=== PATIENT | female | born 1945 | race Caucasian/White ===

== ENCOUNTER → 2016-07-12 | Outpatient (REF) | payer MEDICARE, OTHER ==
[2016-07-12 12:41] LABS: ALBUMIN 3.9 GM/DL (3.2-5.2); ALBUMIN/GLOBULIN RATIO 1.44 (1.00-1.93); ALKALINE PHOSPHATASE 73 U/L (45-117); ALT/SGPT 29 U/L (12-78); ANION GAP 8 MEQ/L (8-16); AST/SGOT 20 U/L (15-37); BILIRUBIN,TOTAL 0.4 MG/DL (0.2-1.0); BLOOD UREA NITROGEN 18 MG/DL (7-18); CALCIUM LEVEL 9.2 MG/DL (8.8-10.2); CARBON DIOXIDE LEVEL 28 MEQ/L (21-32); CHLORIDE LEVEL 108 MEQ/L (98-107); CHOLESTEROL LEVEL 220 MG/DL (<200); CREATININE FOR GFR 0.74 MG/DL (0.55-1.02); GLOMERULAR FILTRATION RATE > 60.0 (>39); GLUCOSE, FASTING 86 MG/DL (83-110); SODIUM LEVEL 144 MEQ/L (136-145); TOTAL PROTEIN 6.6 GM/DL (6.4-8.2); TRIGLYCERIDES LEVEL 127 MG/DL (<150)
== END ==
LOC: M LABDRAW1 11:36
PROVIDERS: ATTEND Internal Medicine
DX: E78.00 Pure hypercholesterolemia, unspecified (principal); I10 Essential (primary) hypertension

== ENCOUNTER → 2017-01-05 | Outpatient (REF) | payer MEDICARE ==
[2017-01-05 12:15] LABS: ALBUMIN 3.9 GM/DL (3.2-5.2); ALBUMIN/GLOBULIN RATIO 1.34 (1.00-1.93); ALKALINE PHOSPHATASE 76 U/L (45-117); ALT/SGPT 23 U/L (12-78); ANION GAP 6 MEQ/L (8-16); AST/SGOT 19 U/L (15-37); BILIRUBIN,TOTAL 0.4 MG/DL (0.2-1.0); BLOOD UREA NITROGEN 16 MG/DL (7-18); CALCIUM LEVEL 9.2 MG/DL (8.8-10.2); CARBON DIOXIDE LEVEL 29 MEQ/L (21-32); CHLORIDE LEVEL 107 MEQ/L (98-107); CHOLESTEROL LEVEL 208 MG/DL (<200); CREATININE FOR GFR 0.73 MG/DL (0.55-1.02); GLOMERULAR FILTRATION RATE > 60.0 (>39); GLUCOSE, FASTING 85 MG/DL (83-110); POTASSIUM SERUM 4.3 MEQ/L (3.5-5.1); SODIUM LEVEL 142 MEQ/L (136-145); TOTAL PROTEIN 6.8 GM/DL (6.4-8.2); TRIGLYCERIDES LEVEL 66 MG/DL (<150)
== END ==
LOC: M SFHCPLAZ 09:31
PROVIDERS: ATTEND Internal Medicine
DX: E78.00 Pure hypercholesterolemia, unspecified (principal); I10 Essential (primary) hypertension

== ENCOUNTER → 2017-07-04 | Outpatient (REF) | payer MEDICARE ==
[2017-07-04 12:50] LABS: HEMATOCRIT 36.5 % (36.0-47.0); HEMOGLOBIN 11.7 g/dl (12.0-16.0); MEAN CORPUSCULAR HEMOGLOBIN 30.3 pg (27.0-33.0); MEAN CORPUSCULAR HGB CONC 32.1 g/dl (32.0-36.5); MEAN CORPUSCULAR VOLUME 94.6 fl (80.0-96.0); PLATELET COUNT, AUTOMATED 385 10^3/uL (150-450); RED BLOOD COUNT 3.86 10^6/uL (4.00-5.40); WHITE BLOOD COUNT 4.8 10^3/uL (4.0-10.0)
[2017-07-04 12:59] LABS: ALBUMIN 4.2 GM/DL (3.2-5.2); ALBUMIN/GLOBULIN RATIO 1.31 (1.00-1.93); ALKALINE PHOSPHATASE 67 U/L (45-117); ALT/SGPT 24 U/L (12-78); ANION GAP 4 MEQ/L (8-16); AST/SGOT 21 U/L (7-37); BILIRUBIN,TOTAL 0.5 MG/DL (0.2-1.0); BLOOD UREA NITROGEN 21 MG/DL (7-18); CALCIUM LEVEL 9.2 MG/DL (8.8-10.2); CARBON DIOXIDE LEVEL 31 MEQ/L (21-32); CHLORIDE LEVEL 108 MEQ/L (98-107); CREATININE FOR GFR 0.91 MG/DL (0.55-1.02); GLOMERULAR FILTRATION RATE > 60.0 (>39); GLUCOSE, FASTING 83 MG/DL (83-110); MAGNESIUM LEVEL 2.2 MG/DL (1.8-2.4); POTASSIUM SERUM 4.3 MEQ/L (3.5-5.1); SODIUM LEVEL 143 MEQ/L (136-145); TOTAL PROTEIN 7.4 GM/DL (6.4-8.2)
== END ==
LOC: M SFHCPLAZ 09:04
DX: Z51.81 Encounter for therapeutic drug level monitoring (principal); Z79.899 Other long term (current) drug therapy; I10 Essential (primary) hypertension
CPT/HCPCS: 83735

== ENCOUNTER → 2018-04-28 | Outpatient (CLI) | payer MEDICARE | LOC: M WHC 10:26 | DX: Z12.31 Encounter for screening mammogram for malignant neoplasm of breast (principal); Z80.3 Family history of malignant neoplasm of breast; Z80.0 Family history of malignant neoplasm of digestive organs | CPT/HCPCS: 77067 ==

== ENCOUNTER → 2018-05-31 | Outpatient (REF) | payer MEDICARE ==
[2018-05-31 18:21] LABS: BASO % 0.3 % (0.0-1.0); EOS # 0.2 10^3/uL (0.0-0.50); HEMOGLOBIN 10.8 g/dl (12.0-15.5); IMMATURE GRANULOCYTE % 0.3 % (0-3.0); LYMPH # 1.7 10^3/uL (1.5-4.5); LYMPH % 18.3 % (24.0-44.0); MEAN CORPUSCULAR HEMOGLOBIN 30.8 pg (27.0-33.0); MEAN CORPUSCULAR HGB CONC 32.7 g/dl (32.0-36.5); MONO # 0.8 10^3/uL (0.0-0.8); MONO % 8.7 % (0.0-5.0); NEUTROPHILS # 6.5 10^3/uL (1.8-7.7); NEUTROPHILS % 70.4 % (36.0-66.0); PLATELET COUNT, AUTOMATED 336 10^3/uL (150-450); RED BLOOD COUNT 3.51 10^6/uL (4.00-5.40); RED CELL DISTRIBUTION WIDTH 13.2 % (11.5-14.5); WHITE BLOOD COUNT 9.3 10^3/uL (4.0-10.0)
[2018-05-31 18:41] LABS: ALBUMIN 3.6 GM/DL (3.2-5.2); ALBUMIN/GLOBULIN RATIO 1.24 (1.00-1.93); ALKALINE PHOSPHATASE 62 U/L (45-117); ALT/SGPT 18 U/L (12-78); ANION GAP 8 MEQ/L (8-16); AST/SGOT 14 U/L (7-37); BILIRUBIN,TOTAL 0.3 MG/DL (0.2-1.0); BLOOD UREA NITROGEN 19 MG/DL (7-18); CALCIUM LEVEL 8.6 MG/DL (8.8-10.2); CARBON DIOXIDE LEVEL 27 MEQ/L (21-32); CHLORIDE LEVEL 106 MEQ/L (98-107); CREATININE FOR GFR 1.03 MG/DL (0.55-1.30); GLOMERULAR FILTRATION RATE 56.1 (>39); GLUCOSE, FASTING 94 MG/DL (70-100); LIPASE 135 U/L (73-393); POTASSIUM SERUM 3.8 MEQ/L (3.5-5.1); SODIUM LEVEL 141 MEQ/L (136-145); TOTAL PROTEIN 6.5 GM/DL (6.4-8.2)
== END ==
LOC: M SFHCPLAZ 16:13
DX: R10.32 Left lower quadrant pain (principal); R19.7 Diarrhea, unspecified; R10.13 Epigastric pain
CPT/HCPCS: 83690

== ENCOUNTER → 2018-06-01 | Outpatient (CLI) | payer MEDICARE ==
[2018-06-03 00:11] LABS: H PYLORI STOOL ANTIGEN Negative (Negative)
== END ==
LOC: M RAD 13:06
DX: R10.13 Epigastric pain (principal)
CPT/HCPCS: 74018

== ENCOUNTER → 2018-07-05 | Outpatient (REF) | payer MEDICARE ==
[~2018-07-05] MED LIST: AMLO5TAB6 PO; ASPI1TAB15 PO; ATOR1TAB19 PO; BENA20TA6 PO; CALCTAB89 PO; FISH1000 PO; FLON1SPR NARES; FOLI400T PO; HAIR1TAB5 PO; MELO15TA28 PO; NAPR-885 PO
[2018-07-05 12:21] LABS: HEMATOCRIT 35.5 % (36.0-47.0); HEMOGLOBIN 11.5 g/dl (12.0-15.5); MEAN CORPUSCULAR HEMOGLOBIN 29.9 pg (27.0-33.0); MEAN CORPUSCULAR HGB CONC 32.4 g/dl (32.0-36.5); MEAN CORPUSCULAR VOLUME 92.4 fl (80.0-96.0); PLATELET COUNT, AUTOMATED 344 10^3/uL (150-450); RED BLOOD COUNT 3.84 10^6/uL (4.00-5.40); WHITE BLOOD COUNT 5.3 10^3/uL (4.0-10.0)
[2018-07-05 12:26] LABS: BILIRUBIN,TOTAL 0.4 MG/DL (0.2-1.0); CALCIUM LEVEL 9.1 MG/DL (8.8-10.2); CHOLESTEROL RISK RATIO 2.779 (<5); POTASSIUM SERUM 4.2 MEQ/L (3.5-5.1); TOTAL PROTEIN 6.9 GM/DL (6.4-8.2)
[2018-07-05 12:34] LABS: TOTAL 25(OH) VITAMIN D 44.1 NG/ML (30.0-100.0)
== END ==
LOC: M SFHCPLAZ 10:09
PROVIDERS: ATTEND Internal Medicine
DX: I10 Essential (primary) hypertension (principal); E78.00 Pure hypercholesterolemia, unspecified; Z51.81 Encounter for therapeutic drug level monitoring; Z79.899 Other long term (current) drug therapy

== ENCOUNTER 2018-07-17 11:44 | Day surgery (SDC) | payer MEDICARE ==
[~2018-07-17] VITALS: Ht 162.6 cm; Wt 68.5 kg
[2018-07-17] MEDS ORDERED: NS 1,000 ML IV ONE (13:30)
--- NOTE | 2018-07-17 14:43 | ROOR ---
Patient Name: Yasemin Berry Procedure Date: 07/17/2018 2:25 PM Date of : 1945 Age: 72 Room: [facility] Gender: Female Note Status: Finalized Procedure: Upper Endoscopy + Biopsies Indications: Unexplained iron deficiency anemia Providers: Paras Hernandez MD Referring MD: Charlie Culp MD Requesting Provider: Medicines: Monitored Anesthesia Care Complications: No immediate complications. Procedure: Pre-Anesthesia Assessment: - The heart rate, respiratory rate, oxygen saturations, blood pressure, adequacy of pulmonary ventilation, and response to care were monitored throughout the procedure. The Endoscope was introduced through the mouth, and advanced to the second part of duodenum. The upper GI endoscopy was accomplished without difficulty. The patient tolerated the procedure well. Findings: The Z-line was variable and was found 40 cm from the incisors. Multiple biopsies were obtained with cold forceps for evaluation to rule out Fernandez's Esophagus randomly at the gastroesophageal junction. No other significant abnormalities were identified in a careful examination of the stomach. The exam of the duodenum was otherwise normal. Biopsies for histology were taken with a cold forceps in the first portion of the duodenum for evaluation of celiac disease. Impression: - Z-line variable, 40 cm from the incisors. - Multiple biopsies were obtained at the gastroesophageal junction. - Biopsies were taken with a cold forceps for evaluation of celiac disease. - The examination was otherwise normal. Recommendation: - Patient has a contact number available for emergencies. The signs and symptoms of potential delayed complications were discussed with the patient. Return to normal activities tomorrow. Written discharge instructions were provided to the patient. - Discharge patient to home. - Continue present medications. - Await pathology results. - Telephone GI clinic for pathology results in 1 week. - Check Portal Online for Path Results.([email or web address]) - Resume previous diet. - The findings and recommendations were discussed with the patient's family. Paras Hernandez MD Paras Hernandez MD 07/17/2018 2:43:17 PM This report has been signed electronically. Number of Addenda: 0 Note Initiated On: 07/17/2018 2:25 PM Estimated Blood Loss: Estimated blood loss: none.
[2018-07-17] MEDS ORDERED: PROPOFOL 200 MG/20 ML VIAL As Ordered ONE ×2 (14:49→14:53)
[2018-07-17] MEDS ORDERED: LIDOCAINE 2% INJ 100 MG/5 ML SDV (FOR ANES.) As Ordered ONE (14:50)
--- NOTE | 2018-07-17 15:03 | ROOR ---
Patient Name: Yasemin Berry Procedure Date: 07/17/2018 2:26 PM Date of : 1945 Age: 72 Room: [facility] Gender: Female Note Status: Finalized Procedure: Total Colonoscopy to Cecum + Biopsy Polypectomy Indications: Abdominal pain in the left lower quadrant, Unexplained iron deficiency anemia Providers: Paras Hernandez MD Referring MD: Charlie Culp MD Requesting Provider: Medicines: Monitored Anesthesia Care Complications: No immediate complications. Procedure: Pre-Anesthesia Assessment: - The heart rate, respiratory rate, oxygen saturations, blood pressure, adequacy of pulmonary ventilation, and response to care were monitored throughout the procedure. The Colonoscope was introduced through the anus and advanced to the cecum, identified by appendiceal orifice and ileocecal valve. The colonoscopy was performed without difficulty. The patient tolerated the procedure well. The quality of the bowel preparation was excellent. Findings: The perianal and digital rectal examinations were normal. Non-bleeding internal hemorrhoids were found during retroflexion. The hemorrhoids were small and Grade I (internal hemorrhoids that do not prolapse). Multiple small and large-mouthed diverticula were found in the recto-sigmoid colon, sigmoid colon and descending colon. A diminutive polyp was found in the mid ascending colon. The polyp was sessile. The polyp was removed with a jumbo cold forceps. Resection and retrieval were complete. The exam was otherwise without abnormality on direct and retroflexion views. Impression: - Non-bleeding internal hemorrhoids. - Diverticulosis in the recto-sigmoid colon, in the sigmoid colon and in the descending colon. - One diminutive polyp in the mid ascending colon, removed with a jumbo cold forceps. Resected and retrieved. - The examination was otherwise normal on direct and retroflexion views. - The exam was otherwise normal to the cecum. Recommendation: - Patient has a contact number available for emergencies. The signs and symptoms of potential delayed complications were discussed with the patient. Return to normal activities tomorrow. Written discharge instructions were provided to the patient. - High fiber diet. - Discharge patient to home. - Continue present medications. - Await pathology results. - Telephone GI clinic for pathology results in 1 week. - Repeat colonoscopy for symptoms only. - Check Portal Online for Path Results.([email or web address]) - The findings and recommendations were discussed with the patient's family. Paras Hernandez MD Paras Hernandez MD 07/17/2018 3:03:43 PM This report has been signed electronically. Number of Addenda: 0 Note Initiated On: 07/17/2018 2:26 PM Estimated Blood Loss: Estimated blood loss: none.
[2018-07-17 15:25] VITALS: BP 149/65
== END 2018-07-17 15:36 | disposition home or self-care (01) ==
LOC: M OPP 11:44
PROVIDERS: ATTEND Internal Medicine Gastroenterology
DX: D50.9 Iron deficiency anemia, unspecified (principal); R10.32 Left lower quadrant pain; R19.4 Change in bowel habit; D12.2 Benign neoplasm of ascending colon; K64.0 First degree hemorrhoids; K57.90 Diverticulosis of intestine, part unspecified, without perforation or abscess without bleeding; K22.8 Other specified diseases of esophagus; I10 Essential (primary) hypertension; E78.5 Hyperlipidemia, unspecified; K57.32 Diverticulitis of large intestine without perforation or abscess without bleeding; M54.9 Dorsalgia, unspecified; Z87.11 Personal history of peptic ulcer disease; Z87.891 Personal history of nicotine dependence; Z88.0 Allergy status to penicillin; Z88.2 Allergy status to sulfonamides; Z79.82 Long term (current) use of aspirin; Z79.899 Other long term (current) drug therapy; Z80.0 Family history of malignant neoplasm of digestive organs; Z80.7 Family history of other malignant neoplasms of lymphoid, hematopoietic and related tissues; Z80.3 Family history of malignant neoplasm of breast

== ENCOUNTER → 2019-01-16 | Outpatient (REF) | payer MEDICARE ==
[2019-01-16 12:35] LABS: ALBUMIN 4.1 GM/DL (3.2-5.2); BILIRUBIN,TOTAL 0.3 MG/DL (0.2-1.0); CALCIUM LEVEL 9.9 MG/DL (8.8-10.2); CREATININE FOR GFR 1.03 MG/DL (0.55-1.30); GLOMERULAR FILTRATION RATE 55.9 (>39); POTASSIUM SERUM 4.3 MEQ/L (3.5-5.1); TOTAL PROTEIN 7.4 GM/DL (6.4-8.2)
== END ==
LOC: M SFHCPLAZ 10:21
PROVIDERS: ATTEND Internal Medicine
DX: I10 Essential (primary) hypertension (principal)
CPT/HCPCS: 20610; 36415; 80053; 83735; G0463; J3301

== ENCOUNTER → 2019-04-24 | Outpatient (REF) | payer MEDICARE ==
[2019-04-24 16:25] LABS: HEMATOCRIT 35.6 % (36.0-47.0); HEMOGLOBIN 11.3 g/dl (12.0-15.5); MEAN CORPUSCULAR HEMOGLOBIN 30.7 pg (27.0-33.0); MEAN CORPUSCULAR HGB CONC 31.7 g/dl (32.0-36.5); MEAN CORPUSCULAR VOLUME 96.7 fl (80.0-96.0); PLATELET COUNT, AUTOMATED 408 10^3/uL (150-450); RED BLOOD COUNT 3.68 10^6/uL (4.00-5.40); WHITE BLOOD COUNT 6.7 10^3/uL (4.0-10.0)
[2019-04-24 16:30] LABS: CALCIUM LEVEL 9.9 MG/DL (8.8-10.2); CREATININE FOR GFR 1.13 MG/DL (0.55-1.30); GLOMERULAR FILTRATION RATE 50.2 (>39); POTASSIUM SERUM 4.4 MEQ/L (3.5-5.1); THYROID STIMULATING HORMONE 0.956 uIU/ML (0.358-3.740)
== END ==
LOC: M SFHCPLAZ 13:10
PROVIDERS: ATTEND Internal Medicine
DX: I10 Essential (primary) hypertension (principal); R53.1 Weakness; Z23 Encounter for immunization
CPT/HCPCS: 36415; 80048; 84443; 85027; 90682; G0008; G0463

== ENCOUNTER → 2019-05-14 | Outpatient (CLI) | payer MEDICARE ==
--- NOTE | 2019-05-14 13:31 | REPMRS ---
Patient History The patient states she has not had a clinical breast exam in over a year. Patient is postmenopausal. Family history of breast cancer at age 50 or over in maternal grandmother, colorectal cancer at age 97 in mother. No Hormone Replacement Therapy 3D TOMOSYNTHESIS WAS PERFORMED. [facility] lifetime risk for breast cancer is 4.6%. Digital Woman Screen Mammo: May 14, 2019 - Exam #: [id number] Bilateral CC and MLO view(s) were taken. Technologist: Radha Engel, Technologist Prior study comparison: April 28, 2018, bilateral digital woman screen mammo performed at [facility]. April 26, 2017, digital woman screen mammo performed at [facility]. FINDINGS: There are scattered fibroglandular densities. There has been no change in the appearance of the mammogram from the prior studies. There is a mild amount of residual fibroglandular tissue which is fairly symmetric. There is no interval development of dominant mass, architectural distortion, or clustered microcalcification suggestive of malignancy. Assessment: BI-RADS/ACR category 1 mammogram. Negative Mammogram. Recommendation Routine screening mammogram in 1 year (for women over age 40). This mammogram was interpreted with the aid of an FDA-approved computer-aided dectection system. Electronically Signed By: Roni William MD 05/14/19 [id number]
== END ==
LOC: M WHC 10:50
PROVIDERS: ATTEND Internal Medicine
DX: Z12.31 Encounter for screening mammogram for malignant neoplasm of breast (principal); Z78.0 Asymptomatic menopausal state; Z80.3 Family history of malignant neoplasm of breast

== ENCOUNTER → 2019-07-02 | Outpatient (CLI) | payer MEDICARE ==
[2019-07-02 11:56] LABS: HEMATOCRIT 34.7 % (36.0-47.0); HEMOGLOBIN 11.3 g/dl (12.0-15.5); MEAN CORPUSCULAR HEMOGLOBIN 31.4 pg (27.0-33.0); MEAN CORPUSCULAR HGB CONC 32.6 g/dl (32.0-36.5); MEAN CORPUSCULAR VOLUME 96.4 fl (80.0-96.0); PLATELET COUNT, AUTOMATED 326 10^3/uL (150-450); WHITE BLOOD COUNT 4.6 10^3/uL (4.0-10.0)
[2019-07-02 12:09] LABS: ALBUMIN 3.9 GM/DL (3.2-5.2); BILIRUBIN,TOTAL 0.4 MG/DL (0.2-1.0); CALCIUM LEVEL 9.2 MG/DL (8.8-10.2); CHOLESTEROL RISK RATIO 3.589 (<5); CREATININE FOR GFR 1.16 MG/DL (0.55-1.30); GLOMERULAR FILTRATION RATE 48.8 (>39); MAGNESIUM LEVEL 1.9 MG/DL (1.8-2.4); POTASSIUM SERUM 4.4 MEQ/L (3.5-5.1)
[2019-07-02 12:10] LABS: TOTAL 25(OH) VITAMIN D 37.1 NG/ML (30.0-100.0)
== END ==
LOC: M PLALAB 09:28
PROVIDERS: ATTEND Internal Medicine
DX: E78.00 Pure hypercholesterolemia, unspecified (principal); I10 Essential (primary) hypertension; M85.80 Other specified disorders of bone density and structure, unspecified site; K21.9 Gastro-esophageal reflux disease without esophagitis

== ENCOUNTER → 2020-01-08 | Outpatient (REF) | payer MEDICARE ==
[~2020-01-08] MED LIST changes: +AMLO1TAB24 PO; -AMLO5TAB6 PO; +ASPI-546 PO; -ASPI1TAB15 PO; +ASPI81TA26 PO; +ATOR1TAB21; +CALC600T60 PO; +FLON1SPR; -FLON1SPR NARES; +IRBE300T12; +IRBE300T12 PO; +META28.32 PO; +OMEP-218 PO; +SM HTAB3 PO
[2020-01-08 12:06] LABS: ALBUMIN 3.7 GM/DL (3.2-5.2); BILIRUBIN,TOTAL 0.4 MG/DL (0.2-1.0); CALCIUM LEVEL 9.2 MG/DL (8.8-10.2); CHOLESTEROL RISK RATIO 3.704 (<5); CREATININE FOR GFR 0.99 MG/DL (0.55-1.30); GLOMERULAR FILTRATION RATE 58.4 (>39); MAGNESIUM LEVEL 2.5 MG/DL (1.8-2.4); POTASSIUM SERUM 4.5 MEQ/L (3.5-5.1); TOTAL PROTEIN 6.7 GM/DL (6.4-8.2)
== END ==
LOC: M PLALAB 08:57
PROVIDERS: ATTEND Nurse Practitioner Family
DX: E78.00 Pure hypercholesterolemia, unspecified (principal); I10 Essential (primary) hypertension

== ENCOUNTER 2020-04-01 18:01 | Observation (INO) | payer MEDICARE ==
[~2020-04-01] VITALS: Ht 162.6 cm; Wt 68.7 kg
[~2020-04-01 18:01] MED LIST changes: -ASPI81TA26 PO; -ATOR1TAB21; -CALC600T60 PO; -IRBE300T12; -IRBE300T12 PO; -META28.32 PO; -OMEP-218 PO; -SM HTAB3 PO
[2020-04-01] MEDS ORDERED: ATOR1TAB21 (18:16)
[2020-04-01] MEDS ORDERED: IRBE300T12 (18:16)
[2020-04-01 19:47] LABS: BASO # 0.1 10^3/uL (0.0-0.2); BASO % 0.5 % (0.0-1.0); EOS # 0.2 10^3/uL (0.0-0.5); EOS % 1.5 % (0.0-3.0); HEMATOCRIT 32.4 % (36.0-47.0); HEMOGLOBIN 10.4 g/dl (12.0-15.5); LYMPH # 1.4 10^3/uL (1.5-5.0); MEAN CORPUSCULAR HEMOGLOBIN 30.4 pg (27.0-33.0); MEAN CORPUSCULAR HGB CONC 32.1 g/dl (32.0-36.5); MEAN CORPUSCULAR VOLUME 94.7 fl (80.0-96.0); MONO % 8.2 % (0.0-5.0); NEUTROPHILS % 77.5 % (36.0-66.0); PLATELET COUNT, AUTOMATED 315 10^3/uL (150-450); RED BLOOD COUNT 3.42 10^6/uL (4.00-5.40); WHITE BLOOD COUNT 11.7 10^3/uL (4.0-10.0)
[2020-04-01 20:00] LABS: INR 0.94; PROTHROMBIN TIME 12.8 SECONDS (12.5-14.3)
--- NOTE | 2020-04-01 20:15 | REPVR ---
PROCEDURE INFORMATION: Exam: XR Chest, 1 View Exam date and time: 04/01/2020 7:11 PM Age: 74 years old Clinical indication: Chest pain; Additional info: Altered mental status TECHNIQUE: Imaging protocol: XR of the chest Views: 1 view. COMPARISON: No relevant prior studies available. FINDINGS: Lungs: Unremarkable. No consolidation. Pleural space: Unremarkable. No pleural effusion. No pneumothorax. Heart/Mediastinum: Unremarkable. No cardiomegaly. Bones/joints: Unremarkable. IMPRESSION: No acute abnormality. Electronically signed by: Alec Montes On 04/01/2020 20:15:37 PM
--- NOTE | 2020-04-01 20:17 | REPVR ---
PROCEDURE INFORMATION: Exam: CT Head Without Contrast Exam date and time: 04/01/2020 8:02 PM Age: 74 years old Clinical indication: Altered mental status/memory loss TECHNIQUE: Imaging protocol: Computed tomography of the head without contrast. Radiation optimization: All CT scans at this facility use at least one of these dose optimization techniques: automated exposure control; mA and/or kV adjustment per patient size (includes targeted exams where dose is matched to clinical indication); or iterative reconstruction. COMPARISON: CT Head without contrast 07/30/2015 6:04 PM FINDINGS: Brain: Normal. No hemorrhage. Unremarkable white matter. No mass effect. Cerebral ventricles: No ventriculomegaly. Bones/joints: Unremarkable. No acute fracture. Paranasal sinuses: Visualized sinuses are unremarkable. No fluid levels. Mastoid air cells: Visualized mastoid air cells are well aerated. Soft tissues: Unremarkable. IMPRESSION: No acute intracranial abnormality. Electronically signed by: Alec Montes On 04/01/2020 20:17:06 PM
[2020-04-01 20:21] LABS: ACETAMINOPHEN LEVEL < 2.0 UG/ML (10.0-30.0); ALT/SGPT 20 U/L (12-78); BILIRUBIN,DIRECT 0.1 MG/DL (0.0-0.2); BILIRUBIN,TOTAL 0.5 MG/DL (0.2-1.0); BLOOD UREA NITROGEN 28 MG/DL (7-18); CALCIUM LEVEL 9.3 MG/DL (8.8-10.2); CARBON DIOXIDE LEVEL 25 MEQ/L (21-32); CHLORIDE LEVEL 107 MEQ/L (98-107); CK-MB VALUE MASS < 1.0 NG/ML (<3.6); CPK CREATINE PHOSPHOKINASE 91 U/L (26-192); CREATININE FOR GFR 1.45 MG/DL (0.55-1.30); GLOMERULAR FILTRATION RATE 37.6 (>39); GLUCOSE, FASTING 101 MG/DL (70-100); POTASSIUM SERUM 4.2 MEQ/L (3.5-5.1); SALICYLATE LEVEL < 1.7 MG/DL (5.0-30.0); SODIUM LEVEL 140 MEQ/L (136-145); TROPONIN I < 0.02 NG/ML (< 0.10)
--- NOTE | 2020-04-01 20:31 | REPVR ---
PROCEDURE INFORMATION: Exam: XR Right Wrist Exam date and time: 04/01/2020 7:11 PM Age: 74 years old Clinical indication: Pain; Wrist; Right; Additional info: Altered mental status TECHNIQUE: Imaging protocol: XR Right wrist. Views: 3 or more views. COMPARISON: No relevant prior studies available. FINDINGS: Bones/joints: Chondrocalcinosis. There is a irregular bony density in the palmar aspect of the wrist which may represent CPPD versus bone fragment. Diffuse demineralization of the bones. Soft tissues: Normal. IMPRESSION: Chondrocalcinosis. Irregular density in the palmar aspect of the wrist which may represent CPPD versus bony fragment of unknown origin. Electronically signed by: Alec Montes On 04/01/2020 20:30:34 PM
[2020-04-01] MEDS ORDERED: ATOR1TAB19 PO (22:04)
[2020-04-01] MEDS ORDERED: META28.32 PO (22:04)
[2020-04-01] MEDS ORDERED: CALC600T60 PO (22:04)
[2020-04-01] MEDS ORDERED: OMEP-218 PO (22:04)
[2020-04-01] MEDS ORDERED: SM HTAB3 PO (22:04)
[2020-04-01] MEDS ORDERED: IRBE300T12 PO (22:04)
[2020-04-02 02:40] VITALS: BP 136/78
[2020-04-02] MEDS ORDERED: SLF 3 ML SYR IV PRN (03:30)
[2020-04-02 04:00] VITALS: BP 158/72
[2020-04-02] MEDS ORDERED: MELOXICAM (MOBIC) 7.5 MG TAB PO PRN (05:30)
[2020-04-02] MEDS ORDERED: FLUTICASONE PROP 0.05% NASAL SPRAY 16 GM (FLONASE) PRN (05:30)
[2020-04-02] MEDS ORDERED: NS 1,000 ML IV SCH (05:30)
--- NOTE | 2020-04-02 05:33 | HPEPDOC ---
General Date of Admission Apr 01, 2020 at 18:02 Date of Service: Apr 02, 2020 Attending Physician: MALAIKA SALGADO MD Chief Complaint The patient is a 74-year-old female admitted with a reason for visit of Tia, Vision Changes. History of Present Illness Pt is a 74 y/o elderly female who presents to ER with cc of curtains falling over bilateral eyes. Pt states that she slept on her wrist wrong and it was painful and bothering her. She decided to wrap an BIA bandage very tightly around her R wrist which did help her wrist pain; however, she states she felt something go up her arm and then all of a sudden, she felt like curtains falling over her bilateral eyes for about 1-2 mins and then resolved. She denies any weakness on any particular side of her body or slurred speech, no difficulty walking, or muscle weakness during the episode. She denies any fainting or lightheadness or vertigo or numbness ROS: All 12 points reviewed. See HPI PMHx: HTN Hypercholestermia Past social hx: No ETOH, or illicit drugs LABS: SEE BELOW IMAGING: CT brain w/o ctx: IMPRESSION: No acute intracranial abnormality. XR wrist: IMPRESSION: Chondrocalcinosis. Irregular density in the palmar aspect of the wrist which may represent CPPD versus bony fragment of unknown origin. CXR IMPRESSION: No acute abnormality. Home Medications Scheduled Amlodipine Besylate (Amlodipine Besylate) 5 Mg Tab, 5 MG PO DAILY, (Reported) Atorvastatin Calcium (Atorvastatin Calcium) 10 Mg Tablet, 10 MG PO DAILY, (Reported) Calcium Carbonate (Calcium) 600 Mg Tablet, 600 MG PO DAILY, (Reported) Irbesartan/Hydrochlorothiazide (Irbesartan-Hctz 300-12.5 mg Tb) 1 Each Tablet, 1 TAB PO DAILY, (Reported) Multivitamin with Minerals (Hair, Skin and Nails) 1 Each Tablet, 1 TAB PO DAILY, (Reported) Omeprazole (Omeprazole) 20 Mg Capsule.dr, 20 MG PO DAILY, (Reported) Psyllium Husk (with Sugar) (Metamucil Powder) 575 Gm Powder, 1 PKT PO DAILY, (Reported) TAKE AT LUNCH Scheduled PRN Fluticasone Propionate (Flonase Allergy Relief) 50 Mcg/Act Spr, 2 SPRAY NA QHS PRN for NASAL CONGESTION, (Reported) Meloxicam (Meloxicam) 15 Mg Tab, 15 MG PO DAILY PRN for PAIN, (Reported) Allergies Coded Allergies: Penicillins (Verified Allergy, Unknown, 04/01/20) Sulfa (Sulfonamide Antibiotics) (Verified Allergy, Unknown, 04/01/20) atorvastatin (Verified Allergy, Unknown, 04/01/20) JOINT PAIN A-FIB/CHADSVASC A-FIB History Current/History of A-Fib/PAF?: No Current PO Anticoag Therapy: No Physical Examination General Exam: Positive: Alert, Cooperative, No Acute Distress Eye Exam: Positive: PERRLA, EOMI, Sclera icteric; Negative: Ptosis ENT Exam: Positive: Atraumatic, Mucous membr. moist/pink, Tongue Midline, Nares Patent; Negative: Pharyngeal Edema Neck Exam: Positive: Supple; Negative: JVD, thyromegaly, Lymphadenopathy Chest Exam: Positive: Clear to auscultation, Normal air movement; Negative: Rales, Rhonchi, Wheezing, Diminished Heart Exam: Positive: Rate Normal, Regular Rhythm, Normal S1, Normal S2; Negative: Gallops, Murmurs, Rubs Telemetry: Positive: No significant arrhythmia, Sinus; Negative: Tachycardia, Bradycardia, AV Block Abdomen Exam: Positive: Normal bowel sounds, Soft; Negative: Tenderness, Hepatospenomegaly, Mass, Hernia Extremity Exam: Negative: Clubbing, Cyanosis, Edema, Normal pulses, Tenderness Skin Exam: Positive: Lesion, Other skin issue (Has some spots that are burned off per dermatology procedures on her back in the R side ); Negative: Rash, Breakdown, Pruritus Neuro Exam: Positive: Normal Speech, Strength at 5/5 X4 ext, Sensation Intact, Cranial Nerves 3-12 NL Psych Exam: Positive: Oriented x 3; Negative: Anxiety Vital Signs Vital Signs Date Time Temp Pulse Resp B/P (MAP) Pulse Ox O2 Delivery O2 Flow Rate FiO2 04/02/20 02:14 71 16 149/79 (102) 98 Room Air 04/02/20 00:27 97.6 Laboratory Data Labs 24H Laboratory Tests 2 04/01/20 19:18: Immature Granulocyte % (Auto) 0.3, Neutrophils (%) (Auto) 77.5H, Lymphocytes (%) (Auto) 12.0L, Monocytes (%) (Auto) 8.2H, Eosinophils (%) (Auto) 1.5, Basophils (%) (Auto) 0.5, Neutrophils # (Auto) 9.0H, Lymphocytes # (Auto) 1.4L, Monocytes # (Auto) 1.0H, Eosinophils # (Auto) 0.2, Basophils # (Auto) 0.1, Nucleated Red Blood Cells % (auto) 0.0, Prothrombin Time 12.8, Prothromb Time International Ratio 0.94, Urine Color YELLOW, Urine Appearance HAZY, Urine pH 6.0, Urine Specific Dun[place] 1.014, Urine Protein NEGATIVE, Urine Glucose (UA) NEGATIVE, Urine Ketones NEGATIVE, Urine Blood NEGATIVE, Urine Nitrite NEGATIVE, Urine Bilirubin NEGATIVE, Urine Urobilinogen 0.2, Urine Leukocyte Esterase 2+H, Urine WBC (Auto) 16H, Urine RBC (Auto) 2, Urine Hyaline Casts (Auto) 4, Urine Bacteria (Auto) NEGATIVE, Urine Squamous Epithelial Cells 5, Urine Mucus (Auto) SMALL, Urine Sperm (Auto) , Anion Gap 8, Glomerular Filtration Rate 37.6L, Calcium Level 9.3, Total Bilirubin 0.5, Direct Bilirubin 0.1, Aspartate Amino Transf (AST/SGOT) 20, Alanine Aminotransferase (ALT/SGPT) 20, Alkaline Phosphatase 76, Total Creatine Kinase 91, Creatine Kinase MB < 1.0, Creatine Kinase MB Relative Index 1.10, Troponin I < 0.02, Total Protein 7.0, Albumin 4.0, Albumin/Globulin Ratio 1.3, Thyroid Stimulating Hormone (TSH) 1.620, Salicylates Level < 1.7L, Acetaminophen Level < 2.0L CBC/BMP Laboratory Tests 04/01/20 19:18 Microbiology Microbiology 04/01/20 Urine Culture, Received Pending Assessment/Plan Pt is a 74 y/o elderly female who presents to ER with cc of curtains falling over bilateral eyes. Pt states that she slept on her wrist wrong and it was painful and bothering her. She decided to wrap an BIA bandage very tightly around her R wrist which did help her wrist pain; however, she states she felt something go up her arm and then all of a sudden, she felt like curtains falling over her bilateral eyes for about 1-2 mins and then resolved. she's being admitted for a TIA workup. Plan / VTE VTE Prophylaxis Ordered?: Yes Plan Plan #Suspected TIA - Bilateral transient vision loss for about 1-2 mins- described as curtains falling over eyes - As TIA usu affects unilaterally- consider opthalmology consultation per morning team -Pending MRI w/o ctx- spoke with patient about MRI- pt is claustraphobic- morning team/doctor to further discuss risk and benefits with patient - MRA pending - U/S carotids pending - ECHO pending - continue neurochecks q4h - Fall precautions #ERASMO - IVF 100cc/h - continue to monitor daily BMP #HTN -Continue amlodipine -Continue atorvastatin 10mg Po daily -Continue HCTZ 12.5mg pO daily -Continue iberstartan 300mg Po daily #Hypercholesteremia - continue home meds DVT ppx: Heparin 5000mg SubQ TID GI ppx: none IVF : NS 0.9% @100cc/h Diet: 2g Na+ diet Fall precautions Code Status: Full Dispo: On telemetry. TIA workup. MRI, MRA, u/s carotids, ECHO pending. For morning team- consider consulting opthalmology GME ATTESTATION GME ATTESTATION My faculty preceptor for this patient encounter was physically present during the encounter and was fully available. All aspects of the patient interview, examination, medical decision making process, and medical care plan development were reviewed and approved by the faculty preceptor. The faculty preceptor is aware and concurs with the plan as stated in the body of this note and will attest to such by his/her cosignature. ATTENDING NOTE IDalton, have independently examined this patient and performed my own physical exam, as well as reviewed the documentation and edited where necessary. I have discussed in detail with the resident / student the findings and plan of treatment as documented by the resident / student and edited their note. I agree with their findings and treatment plan and have edited their documentation. I will continue to follow the patient during this hospital stay. TIA workup but seems unlikely. Would consult neuro in the AM. Would consider an ophthalmology consult in vs op. Coni Philippe DO Apr 02, 2020 05:33 MALAIKA SALGADO MD Apr 02, 2020 07:04
[2020-04-02 05:58] LABS: BASO % 0.6 % (0.0-1.0); EOS # 0.2 10^3/uL (0.0-0.5); EOS % 2.4 % (0.0-3.0); HEMATOCRIT 29.7 % (36.0-47.0); HEMOGLOBIN 9.6 g/dl (12.0-15.5); LYMPH # 1.8 10^3/uL (1.5-5.0); LYMPH % 25.1 % (24.0-44.0); MEAN CORPUSCULAR HEMOGLOBIN 30.7 pg (27.0-33.0); MEAN CORPUSCULAR HGB CONC 32.3 g/dl (32.0-36.5); MEAN CORPUSCULAR VOLUME 94.9 fl (80.0-96.0); MONO # 0.7 10^3/uL (0.0-0.8); MONO % 10.3 % (0.0-5.0); NEUTROPHILS # 4.3 10^3/uL (1.5-8.5); NEUTROPHILS % 61.3 % (36.0-66.0); PLATELET COUNT, AUTOMATED 277 10^3/uL (150-450); RED BLOOD COUNT 3.13 10^6/uL (4.00-5.40); WHITE BLOOD COUNT 7.1 10^3/uL (4.0-10.0)
[2020-04-02] MEDS: SLF 3 ML SYR IV SCH ×2 (06:00→14:46)
[2020-04-02 06:20] LABS: CALCIUM LEVEL 9.4 MG/DL (8.8-10.2); CREATININE FOR GFR 1.33 MG/DL (0.55-1.30); GLOMERULAR FILTRATION RATE 41.5 (>39); POTASSIUM SERUM 3.9 MEQ/L (3.5-5.1)
[2020-04-02] MEDS: HEPARIN SOD (PORCINE) 5000UNITS/ML 1ML VIAL/SYRINGE SQ SCH ×2 (06:55→14:00)
[2020-04-02 08:00] VITALS: BP 118/80
--- NOTE | 2020-04-02 08:06 | REPVR ---
PROCEDURE INFORMATION: Exam: US Duplex Bilateral Extracranial Arteries Exam date and time: 04/02/2020 6:17 AM Age: 74 years old Clinical indication: Visual disturbance; Additional info: Suspect TIA TECHNIQUE: Imaging protocol: Real-time Duplex ultrasound scan of the bilateral carotid and vertebral arteries combining alfaro scale, color Doppler and spectral waveform analysis. Bilateral exam. COMPARISON: CT Head without contrast 04/01/2020 7:58 PM FINDINGS: Right common carotid artery: Unremarkable. No occlusion or stenosis. Waveforms are normal. Right internal carotid artery: The proximal right ICA is patent with normal waveform and peak systolic velocity of 90.2 centimeter/second. The mid right ICA is patent with normal waveform and peak systolic velocity of 79.1 centimeter/second. The distal right ICA is patent with normal waveform and peak systolic velocity of 77.4 centimeter/second. The right carotid bulb is patent with peak systolic velocity of 93.4 centimeter/second. The proximal right ICA is patent demonstrating mild mural calcified plaque with normal waveform and peak systolic velocity of 75.7 centimeter/second. The mid right ICA is patent with normal waveforms and peak systolic velocity of 97.6 centimeter/second. The distal right ICA is patent with normal waveform and peak systolic velocities of 74.9 centimeter/second. Right ICA/CCA ratio: Within normal limits. 1.08 Right external carotid artery: The proximal right ECA is patent with peak systolic velocity ranging from 119-134 centimeter/seconds. Right vertebral artery: Antegrade flow seen in the right vertebral artery with peak systolic velocity of 45.4 centimeter/second. Left common carotid artery: The proximal left CCA is patent and tortuous with normal waveforms and peak systolic velocity 141.3 centimeter/second. The mid left CCA is patent with normal waveform and peak systolic velocity of 104.3 centimeter/second. The left distal CCA is patent with normal waveforms and peak systolic velocities of 57.2 centimeter/second. Left internal carotid artery: Minimal calcified plaque seen in the left carotid bulb with peak systolic velocity of 56.4 centimeter/second. The proximal left ICA is patent with normal waveform and peak systolic velocities of 58.1 centimeter/second. The left mid ICA is patent with normal waveforms and peak systolic velocity of 86.7 centimeter/second. The distal left ICA is patent with peak systolic velocities of 111.9 centimeter/second. Left ICA/CCA ratio: Within normal limits. 0.79 Left external carotid artery: The proximal left ECA is patent with peak systolic velocity ranging from 93-124 centimeter/seconds. . Left vertebral artery: Antegrade flow seen in the left vertebral artery with peak systolic velocity of 65.6 centimeter/second. IMPRESSION: No sonographic or Doppler evidence of hemodynamically significant stenosis in the right or left carotid arteries. REFERENCES: SRU CRITERIA. The degree of internal carotid artery stenosis is based on criteria defined by the Society of Radiologists in Ultrasound (SRU). Normal is no stenosis. Mild is less than 50% stenosis. Moderate is 50-69% stenosis. Severe is greater than 69% stenosis to near occlusion. Near occlusion is a markedly narrowed lumen. Total occlusion is no detectable patent lumen. Electronically signed by: Kenroy Chavez On 04/02/2020 08:05:56 AM
--- NOTE | 2020-04-02 08:33 | ECGEPIP ---
[facility] - ED Test Date: 2020-04-01 Pat Name: OSCAR DYSON Department: Room: [place] [address] Gender: Female Clinical Admissions Manager: jovita : 1945 Requested By: TAMMY VILLAFUERTE Order Number: [id number] Reading MD: Brittany Ryan Measurements Intervals [place] Rate: 77 P: 54 NC: 172 QRS: 22 QRSD: 89 T: 19 QT: 374 QTc: 426 Interpretive Statements SINUS RHYTHM NONSPECIFIC T-WAVE ABNORMALITY INCREASED RATE 06/05/16 Electronically Signed on 04-02-2020 8:32:51 EDT by Brittany Ryan
[2020-04-02 09:00] VITALS: BP 118/80
[2020-04-02] MEDS ORDERED: amLODIPine 5 MG TAB PO SCH (09:00)
[2020-04-02] MEDS ORDERED: amLODIPine 10 MG TAB PO SCH (09:00)
[2020-04-02] MEDS ORDERED: IRBESARTAN 150MG TAB PO SCH (09:00)
[2020-04-02] MEDS ORDERED: ATORVASTATIN 10 MG TAB PO SCH (09:00)
[2020-04-02] MEDS ORDERED: OMEPRAZOLE 20 MG CAP PO SCH (09:00)
[2020-04-02] MEDS ORDERED: hydroCHLOROthiazide 12.5 MG CAPSULE PO SCH (09:00)
[2020-04-02] MEDS ORDERED: METAMUCIL (PSYLLIUM) PACKET PO SCH (12:00)
[2020-04-02] MEDS ORDERED: ISOVUE-370 76% 100ML VIAL As Ordered ONE (13:50)
--- NOTE | 2020-04-02 14:29 | REPVR ---
PROCEDURE INFORMATION: Exam: CT Head Without Contrast Exam date and time: 04/02/2020 1:57 PM Age: 74 years old Clinical indication: Other: TIA TECHNIQUE: Imaging protocol: Computed tomography of the head without contrast. Radiation optimization: All CT scans at this facility use at least one of these dose optimization techniques: automated exposure control; mA and/or kV adjustment per patient size (includes targeted exams where dose is matched to clinical indication); or iterative reconstruction. COMPARISON: CT Head without contrast 04/01/2020 7:58 PM FINDINGS: Brain: No mass, mass effect, parenchymal hemorrhage, or evidence of large acute infarct. No asymmetric sulcal effacement or loss of the alfaro-white interface. No extra-axial hemorrhage. Cerebral ventricles: There is no hydrocephalus. Basal cisterns are patent. No midline shift. Bones/joints: There is nasal septal deviation to the left. Paranasal sinuses: There is opacification of a right ethmoid air cell. Mastoid air cells: Partial opacification of inferior mastoid air cells bilaterally. Vasculature: There is atherosclerotic calcification in the bilateral internal carotid and left vertebral arteries. Soft tissues: Unremarkable. Additional findings: There are no sagittal or coronal reformatted images available for review. IMPRESSION: 1. No intracranial hemorrhage or evidence of large acute infarct. Electronically signed by: Peyton Calixto On 04/02/2020 14:29:28 PM
--- NOTE | 2020-04-02 14:34 | REPVR ---
PROCEDURE INFORMATION: Exam: CT Angiography Head With Contrast Exam date and time: 04/02/2020 1:57 PM Age: 74 years old Clinical indication: Other: TIA TECHNIQUE: Imaging protocol: Computed tomography angiography of the head with intravenous contrast. 3D rendering (Not supervised by radiologist): MIP and/or 3D reconstructed images were created by the technologist. Radiation optimization: All CT scans at this facility use at least one of these dose optimization techniques: automated exposure control; mA and/or kV adjustment per patient size (includes targeted exams where dose is matched to clinical indication); or iterative reconstruction. Contrast material: ISOVUE 370; Contrast volume: 75 ml; Contrast route: INTRAVENOUS (IV); COMPARISON: CT Head without contrast 04/01/2020 7:58 PM FINDINGS: ANTERIOR CIRCULATION: Right internal carotid artery: Unremarkable. Intracranial segment is patent with no significant stenosis. No aneurysm. Right middle cerebral artery: Unremarkable. No occlusion or significant stenosis. No aneurysm. Right anterior cerebral artery: Unremarkable. No occlusion or significant stenosis. No aneurysm. Left internal carotid artery: Unremarkable. Intracranial segment is patent with no significant stenosis. No aneurysm. Left middle cerebral artery: Unremarkable. No occlusion or significant stenosis. No aneurysm. Left anterior cerebral artery: Unremarkable. No occlusion or significant stenosis. No aneurysm. POSTERIOR CIRCULATION: Right vertebral artery: Unremarkable. No occlusion or significant stenosis. No aneurysm. Left vertebral artery: Unremarkable. No occlusion or significant stenosis. No aneurysm. Basilar artery: Unremarkable. No occlusion or significant stenosis. No aneurysm. Right posterior cerebral artery: Unremarkable. No occlusion or significant stenosis. No aneurysm. Left posterior cerebral artery: Unremarkable. No occlusion or significant stenosis. No aneurysm. Brain: No definite mass, mass effect, or midline shift. Cerebral ventricles: The ventricles appear mildly enlarged, but not out of proportion to the degree of parenchymal volume loss. Bones/joints: Unremarkable. No acute fracture. Soft tissues: Unremarkable. IMPRESSION: No large vessel stenosis or occlusion. Electronically signed by: Ela Harding On 04/02/2020 14:34:15 PM
[2020-04-02 16:00] VITALS: BP 124/64
[2020-04-02] MEDS ORDERED: ASPI81TA26 PO (17:38)
--- NOTE | 2020-04-03 13:24 | DS.PDOC ---
Discharge Summary General Date of Admission Apr 01, 2020 at 18:02 Date of Discharge 04/02/20 Discharge Summary PROCEDURES PERFORMED DURING STAY: [None]. DISCHARGE DIAGNOSES: Presyncopal episode due to severe wrist pain Right wrist chondrocalcinosis Hypertension ERASMO HLD COMPLICATIONS/CHIEF COMPLAINT: TIA, Vision Changes. HOSPITAL COURSE: Pt is a 74 y/o elderly female who presents to ER with sensation of curtains falling over bilateral eyes. Pt states that she slept on her wrist wrong and it was painful and bothering her. She overworked her wrist the day as she was cooking for family coming over. She decided to wrap an BIA bandage very tightly around her R wrist which did help her wrist pain; then suddenly she had a severe episode of wrist pain shooting up to her shoulder . She felt something go up her arm and then all of a sudden then she felt like curtains falling over her bilateral eyes with blurring of Vision for about 1-2 mins and then resolved. She was admitted for possible TIA. Work up for TIA/ stroke was negative. This was probably and vagal respond to severe pain with a presyncopal episode. Presyncopal Episode Bilateral transient vision loss for about 1-2 mins- described as curtains falling over eyes associated with severe shooting pain from his right wrist Work up for TIA/Stroke was negative. Telemetry negative. Discussed with neurology. TIAs cannot be bilateral and ophthalmological problems are also unilateral. Right wrist pain referred to [facility] Xray shows Chondrocalcinosis. Irregular density in the palmar aspect of the wrist which may represent CPPD versus bony fragment of unknown origin. ERASMO resolved HTN Continue amlodipine Continue atorvastatin 10mg Po daily Continue HCTZ 12.5mg pO daily Continue irbesartan 300mg Po daily Hypercholesteremia continue home meds DISCHARGE MEDICATIONS: Please see below. ALLERGIES: Please see below. PHYSICAL EXAMINATION ON DISCHARGE: VITAL SIGNS: Please see below. General Exam: Positive: Alert, Cooperative, No Acute Distress Eye Exam: Positive: PERRLA, EOMI, Sclera icteric; Negative: Ptosis ENT Exam: Positive: Atraumatic, Mucous membr. moist/pink, Tongue Midline, Nares Patent; Negative: Pharyngeal Edema Neck Exam: Positive: Supple; Negative: JVD, thyromegaly, Lymphadenopathy Chest Exam: Positive: Clear to auscultation, Normal air movement; Negative: Rales, Rhonchi, Wheezing, Diminished Heart Exam: Positive: Rate Normal, Regular Rhythm, Normal S1, Normal S2; Negative: Gallops, Murmurs, Rubs Telemetry: Positive: No significant arrhythmia, Sinus; Negative: Tachycardia, Bradycardia, AV Block Abdomen Exam: Positive: Normal bowel sounds, Soft; Negative: Tenderness, Hepatospenomegaly, Mass, Hernia Extremity Exam: Negative: Clubbing, Cyanosis, Edema, Normal pulses, Tenderness Skin Exam: Positive: Lesion, Other skin issue (Has some spots that are burned off per dermatology procedures on her back in the R side ); Negative: Rash, Breakdown, Pruritus Neuro Exam: Positive: Normal Speech, Strength at 5/5 X4 ext, Sensation Intact, Cranial Nerves 3-12 NL Psych Exam: Positive: Oriented x 3; Negative: Anxiety LABORATORY DATA: Please see below. ACTIVITY: [As tolerated]. DIET: As tolerated DISPOSITION: 01 Home, Self-Care. DISCHARGE INSTRUCTIONS: PMD in 2 weeks Orthopedics call for early appointment DISCHARGE CONDITION: [Stable]. TIME SPENT ON DISCHARGE: 35 minutes. Vital Signs/I&Os Vital Signs Date Time Temp Pulse Resp B/P (MAP) Pulse Ox O2 Delivery O2 Flow Rate FiO2 04/02/20 16:00 97.1 70 16 124/64 (84) 96 Room Air I&O- Last 24 Hours up to 6 AM 04/03/20 06:00 Intake Total 1025 ml Output Total 550 ml Balance 475 ml Microbiology Microbiology 04/01/20 Urine Culture, Received Pending Discharge Medications Scheduled Amlodipine Besylate (Amlodipine Besylate) 5 Mg Tab, 5 MG PO DAILY, (Reported) Aspirin (Aspirin EC) 81 Mg Tablet.dr, 1 TAB PO DAILY for pain Atorvastatin Calcium (Atorvastatin Calcium) 10 Mg Tablet, 10 MG PO DAILY, (Reported) Calcium Carbonate (Calcium) 600 Mg Tablet, 600 MG PO DAILY, (Reported) Irbesartan/Hydrochlorothiazide (Irbesartan-Hctz 300-12.5 mg Tb) 1 Each Tablet, 1 TAB PO DAILY, (Reported) Multivitamin with Minerals (Hair, Skin and Nails) 1 Each Tablet, 1 TAB PO DAILY, (Reported) Omeprazole (Omeprazole) 20 Mg Capsule.dr, 20 MG PO DAILY, (Reported) Psyllium Husk (with Sugar) (Metamucil Powder) 575 Gm Powder, 1 PKT PO DAILY, (Reported) TAKE AT LUNCH Scheduled PRN Fluticasone Propionate (Flonase Allergy Relief) 50 Mcg/Act Spr, 2 SPRAY NA QHS PRN for NASAL CONGESTION, (Reported) Meloxicam (Meloxicam) 15 Mg Tab, 15 MG PO DAILY PRN for PAIN, (Reported) Allergies Coded Allergies: Penicillins (Verified Allergy, Unknown, 04/01/20) Sulfa (Sulfonamide Antibiotics) (Verified Allergy, Unknown, 04/01/20) atorvastatin (Verified Allergy, Unknown, 04/01/20) JO[employer] [facility] FINN MARTINEZ MD Apr 03, 2020 13:24
--- NOTE | 2020-04-04 10:19 | ECHO ---
DATE OF PROCEDURE: 04/02/2020 Age: 74 Gender: Female REFERRING PROVIDER: Dr. Mckay Carranza PATIENT LOCATION: Room 3215. REASON FOR STUDY: Cerebrovascular accident (CVA). 2D MEASUREMENTS: IVS 0.9 cm LV 4.4 cm LVPW 1.0 cm LA 3.7 cm Aorta 2.3 cm IVC 1.6 cm DOPPLER MEASUREMENT Peak velocity across the aortic valve 1.4 m/s Peak velocity across the LVOT 0.92 m/s Mitral E 0.65 Mitral A 0.88 with a ratio of 0.87 Maximum tricuspid valve velocity 2.4 m/s 2D COMMENTS: 1. Normal left ventricular size, wall thickness, and normal global left ventricular systolic function. The estimated left ventricular systolic ejection fraction is 60% to 65%. 2. Normal left atrium. 3. Normal right atrium and right ventricle. 4. The atrial septum appeared to be normal without evidence of defect or shunt. 5. Normal aortic root. 6. No pericardial effusion seen. 7. Minimally calcified aortic valve with normal leaflet excursion. Mildly calcified mitral annulus with normal anterior mitral valve leaflet motion. Normal tricuspid valve and pulmonic valve. The proximal pulmonary artery branches also appeared to be normal in size. 8. The inferior vena cava was normal in size. Central venous pressure is most likely normal. Doppler detects trace aortic regurgitation, mild mitral regurgitation, mild tricuspid regurgitation, and trace pulmonic regurgitation. The calculated pulmonary artery systolic pressure varies between 30 to 40 mmHg. Abnormal relaxation pattern was noted across the mitral valve leaflets, as well as the mitral valve annulus consistent with features of grade 1 left ventricular diastolic dysfunction. IMPRESSION: 1. Normal global left ventricular systolic function. There are some features of grade 1 left ventricular diastolic dysfunction manifested by abnormal relaxation. 2. Aortic valve sclerosis with trace aortic regurgitation, but no aortic stenosis. 3. Mitral annulus calcification with mild mitral regurgitation. 4. Mild tricuspid regurgitation with probably mild pulmonary artery hypertension. 5. Trace pulmonic regurgitation. 6. No intracardiac shunt detected in this transthoracic echocardiogram. [facility]
== END 2020-04-02 19:15 | disposition home or self-care (01) ==
LOC: M ED 18:01 → M ED INP 18:02 → ENRESERV 04-02 00:48 → M PCU 04-02 02:40
PROVIDERS: ADMIT Family Medicine; ATTEND Family Medicine
DX: R55 Syncope and collapse (principal); M25.531 Pain in right wrist; M11.231 Other chondrocalcinosis, right wrist; I10 Essential (primary) hypertension; N17.9 Acute kidney failure, unspecified; E78.5 Hyperlipidemia, unspecified; Z79.899 Other long term (current) drug therapy; Z79.82 Long term (current) use of aspirin; Z88.0 Allergy status to penicillin; Z88.2 Allergy status to sulfonamides; Z88.8 Allergy status to other drugs, medicaments and biological substances
CPT/HCPCS: 36415; 70450; 70496; 71045; 73110; 80048; 80076; 81001; 82550; 82553; 84443; 84484; 85025; 85610; 87088; 87186; 93005; 93041; 93306; 93880; 94760; 96360; 97161; 97165; 99285; G0378; G0480; J1644; Q9967

== ENCOUNTER → 2020-04-08 | Outpatient (REF) | payer MEDICARE ==
[~2020-04-08] MED LIST changes: +ASPI81TA26 PO; +ATOR1TAB21; +CALC600T60 PO; +IRBE300T12; +IRBE300T12 PO; +META28.32 PO; +OMEP-218 PO; +SM HTAB3 PO
[2020-04-08 17:28] LABS: BASO % 0.7 % (0.0-1.0); EOS # 0.1 10^3/uL (0.0-0.5); EOS % 2.4 % (0.0-3.0); HEMATOCRIT 34.2 % (36.0-47.0); LYMPH # 1.5 10^3/uL (1.5-5.0); LYMPH % 24.6 % (24.0-44.0); MEAN CORPUSCULAR HEMOGLOBIN 30.9 pg (27.0-33.0); MEAN CORPUSCULAR HGB CONC 32.2 g/dl (32.0-36.5); MEAN CORPUSCULAR VOLUME 96.1 fl (80.0-96.0); MONO # 0.5 10^3/uL (0.0-0.8); MONO % 8.2 % (0.0-5.0); NEUTROPHILS # 3.8 10^3/uL (1.5-8.5); NEUTROPHILS % 63.6 % (36.0-66.0); PLATELET COUNT, AUTOMATED 381 10^3/uL (150-450); RED BLOOD COUNT 3.56 10^6/uL (4.00-5.40); WHITE BLOOD COUNT 5.9 10^3/uL (4.0-10.0)
[2020-04-08 18:00] LABS: CALCIUM LEVEL 9.4 MG/DL (8.8-10.2); CREATININE FOR GFR 1.15 MG/DL (0.55-1.30); GLOMERULAR FILTRATION RATE 49.1 (>39); PERCENT SATURATION 24.1 % (13.2-45.0); POTASSIUM SERUM 4.4 MEQ/L (3.5-5.1)
== END ==
LOC: M SFHCPLAZ 14:35
PROVIDERS: ATTEND Internal Medicine
DX: D64.9 Anemia, unspecified (principal); I10 Essential (primary) hypertension
CPT/HCPCS: 36415; 80048; 82728; 83550; 85025; 99496; G0463

== ENCOUNTER → 2020-05-20 | Outpatient (CLI) | payer MEDICARE ==
--- NOTE | 2020-05-20 12:47 | REPMRS ---
Patient History The patient states she had a clinical breast exam in April 2020.Family history of breast cancer at age 50 or over in maternal grandmother, colorectal cancer at age 97 in mother. No Hormone Replacement Therapy 3D TOMOSYNTHESIS WAS PERFORMED. [facility] for [facility]%. Volpara breast density a. Digital Woman Screen Mammo: May 20, 2020 - Exam #: [id number] Bilateral CC and MLO view(s) were taken. Technologist: Tiffany Gaviria, Technologist Prior study comparison: May 14, 2019, bilateral digital woman screen mammo performed at [facility]. April 28, 2018, bilateral digital woman screen mammo performed at [facility]. FINDINGS: There are scattered fibroglandular densities. There has been no change in the appearance of the mammogram from the prior studies. There is a mild amount of residual fibroglandular tissue which is fairly symmetric. There is no interval development of dominant mass, architectural distortion, or clustered microcalcification suggestive of malignancy. Assessment: BI-RADS/ACR category 1 mammogram. Negative Mammogram. Recommendation Routine screening mammogram in 1 year (for women over age 40). This mammogram was interpreted with the aid of an FDA-approved computer-aided dectection system. Electronically Signed By: Roni William MD 05/20/20 [id number]
== END ==
LOC: M WHC 12:15
PROVIDERS: ATTEND Nurse Practitioner Family
DX: Z01.419 Encounter for gynecological examination (general) (routine) without abnormal findings (principal); Z12.31 Encounter for screening mammogram for malignant neoplasm of breast; Z80.0 Family history of malignant neoplasm of digestive organs
CPT/HCPCS: 77063; 77067; G0101

== ENCOUNTER → 2020-08-05 | Outpatient (REF) | payer MEDICARE ==
[2020-08-05 14:32] LABS: BILIRUBIN,TOTAL 0.4 MG/DL (0.2-1.0); CHOLESTEROL RISK RATIO 3.35 (<5); CREATININE FOR GFR 1.07 MG/DL (0.55-1.30); GLOMERULAR FILTRATION RATE 53.4 (>39); MAGNESIUM LEVEL 1.7 MG/DL (1.8-2.4); POTASSIUM SERUM 4.3 MEQ/L (3.5-5.1); TOTAL PROTEIN 6.9 GM/DL (6.4-8.2)
[2020-08-05 15:30] LABS: BASO # 0.1 10^3/uL (0.0-0.2); BASO % 1.2 % (0.0-1.0); EOS # 0.1 10^3/uL (0.0-0.5); EOS % 2.6 % (0.0-3.0); HEMATOCRIT 35.5 % (36.0-47.0); HEMOGLOBIN 11.5 g/dl (12.0-15.5); LYMPH # 1.6 10^3/uL (1.5-5.0); LYMPH % 30.6 % (24.0-44.0); MEAN CORPUSCULAR HEMOGLOBIN 31.4 pg (27.0-33.0); MEAN CORPUSCULAR HGB CONC 32.4 g/dl (32.0-36.5); MONO # 0.5 10^3/uL (0.0-0.8); MONO % 10.3 % (0.0-5.0); NEUTROPHILS # 2.8 10^3/uL (1.5-8.5); NEUTROPHILS % 55.1 % (36.0-66.0); PLATELET COUNT, AUTOMATED 327 10^3/uL (150-450); RED BLOOD COUNT 3.66 10^6/uL (4.00-5.40); WHITE BLOOD COUNT 5.1 10^3/uL (4.0-10.0)
== END ==
LOC: M SFHCPLAZ 09:56
PROVIDERS: ATTEND Internal Medicine
DX: K21.9 Gastro-esophageal reflux disease without esophagitis (principal); I10 Essential (primary) hypertension; E78.00 Pure hypercholesterolemia, unspecified; Z11.59 Encounter for screening for other viral diseases
CPT/HCPCS: 36415; 80053; 80061; 83735; 85025; G0463; G0472

== ENCOUNTER → 2021-01-27 | Outpatient (CLI) | payer MEDICARE ==
[~2021-01-27] MED LIST changes: -FOLI400T PO; +FOLI400T13 PO; +HYDR-4571; +OMEP-173 PO; -OMEP-218 PO
[2021-01-27 12:44] LABS: ALBUMIN 3.9 GM/DL (3.2-5.2); BILIRUBIN,TOTAL 0.3 MG/DL (0.2-1.0); CHOLESTEROL RISK RATIO 2.704 (<5); CREATININE FOR GFR 1.03 MG/DL (0.55-1.30); GLOMERULAR FILTRATION RATE 55.6 (>39); MAGNESIUM LEVEL 1.9 MG/DL (1.8-2.4); POTASSIUM SERUM 4.5 MEQ/L (3.5-5.1); TOTAL PROTEIN 6.7 GM/DL (6.4-8.2)
== END ==
LOC: M PLALAB 09:16
PROVIDERS: ATTEND Internal Medicine
DX: I10 Essential (primary) hypertension (principal); E78.00 Pure hypercholesterolemia, unspecified

== ENCOUNTER → 2021-03-25 | Outpatient (CLI) | payer MEDICARE ==
[~2021-03-25] MED LIST changes: -HYDR-4571; -OMEP-173 PO; +OMEP-218 PO
--- NOTE | 2021-03-25 09:16 | REP ---
INDICATION: RIGHT KNEE OSTEPARTHRITIS. COMPARISON: 04/01/2020 a portable exam TECHNIQUE: PA and lateral views FINDINGS: The superior mediastinal structures are midline. The cardiac silhouette is unremarkable in size, shape, and position. The diaphragmatic surfaces of the lungs are regular, and the costophrenic angles are clear. The pulmonary guardado are clear. The imaged osseous structures are intact. IMPRESSION: There is no acute cardiopulmonary disease. <Electronically signed by Mariano Chew > 03/25/21 0925
[2021-03-25 11:20] LABS: HEMATOCRIT 36.1 % (36.0-47.0); HEMOGLOBIN 11.2 g/dl (12.0-15.5); MEAN CORPUSCULAR HEMOGLOBIN 30.2 pg (27.0-33.0); MEAN CORPUSCULAR VOLUME 97.3 fl (80.0-96.0); PLATELET COUNT, AUTOMATED 347 10^3/uL (150-450); RED BLOOD COUNT 3.71 10^6/uL (4.00-5.40); WHITE BLOOD COUNT 4.9 10^3/uL (4.0-10.0)
[2021-03-25 11:30] LABS: INR 0.89; PROTHROMBIN TIME 12.5 SECONDS (12.7-14.5)
[2021-03-25 11:43] LABS: ERYTHROCYTE SEDIMENTATION RATE 35 mm/hr (0-30)
[2021-03-25 11:59] LABS: ALBUMIN 3.7 GM/DL (3.2-5.2); BILIRUBIN,TOTAL 0.4 MG/DL (0.2-1.0); CALCIUM LEVEL 8.9 MG/DL (8.8-10.2); CREATININE FOR GFR 1.1 MG/DL (0.55-1.30); GLOMERULAR FILTRATION RATE 51.5 (>39); POTASSIUM SERUM 4.6 MEQ/L (3.5-5.1); TOTAL PROTEIN 6.7 GM/DL (6.4-8.2)
== END ==
LOC: M PLAIMG 08:38
PROVIDERS: ATTEND Orthopaedic Surgery
DX: Z01.818 Encounter for other preprocedural examination (principal); M17.11 Unilateral primary osteoarthritis, right knee
CPT/HCPCS: 36415; 71046; 80053; 85027; 85610; 85652; 93005; G0463

== ENCOUNTER 2021-05-16 12:02 | Emergency (ER) | payer MEDICARE ==
--- OUTSIDE RECORDS SUMMARY | 2021-05-16 12:07 | CCD | Continuity of Care Document ---
Author Author Yasemin BERGMAN MSPT Organization Unknown Address [address] [place] [address] Phone [phone] Care Team Providers Care Windows Administrator Name Role Phone Charlie Culp MD AUTM [phone] Problems Active Problems Provider Date Essential hypertension Zully Villarreal MD Onset: 04/19 Pure hypercholesterolemia Zully Villarreal MD Onset: Social History Type Date Description Comments Sex Unknown ETOH Use Occasionally consumes alcohol Tobacco Use Start: Unknown End: Unknown Patient is a former smoker a pack a week Allergies and adverse reactions Active Allergies Criticality Reaction | Severity Comments Date Penicillin V Unable to assess criticality 03/12/2020 sulfa drugs Unable to assess criticality 03/12/2020 Inactive Allergies NKDA Unable to assess criticality 04/19/2019 Medications Active Medications SIG Qnty Indications Ordering Provide r Date Mupirocin 2% Ointment apply a pea sized amount to the nasal passages 3 times a day for 5 days prior to surgery 22gm Zully Villarreal MD 02/25/2021 Hibiclens 4% Liquid use in shower once daily for 5 days before surgery 1units Zully ortiz MD 02/25/2021 Hydrocodone Bitartrate/Acetaminophen 5-325mg Tablets 1 tab by mouth every 6 hours as needed f or post op pain. (please do not fill until 04/07/21). 40tabs Zully Villarreal MD 02/25/2021 Atorvastatin Calcium 10mg Tablets Unknown Amlodipine Besylate 5mg Tablets Unknown Omeprazole 20mg Capsules DR Unknown Irbesartan 300mg Tablets 1 by mouth every night at bedtime Unknown Meloxicam 15mg Tablets 1 by mouth every day with food or milk Unknown Folic Acid 400mcg Tablets Unknown Hair Skin & Nails Advanced Formula Tablets Unknown Calcium 600/Vitamin D3 [id number] Tablets Unknown Fluticasone Propionate Nasal [place] 50mcg/Act Suspension 2 sprays each nostril every night at bedtime Unknown Immunizations Description No Information Available Vital Signs Date Vital Result Comment 04/21/2021 8:09am Body Temperature 97.5 F 04/01/2021 10:22am BP Systolic 120 mmHg BP Diastolic 70 mmHg Heart Rate 80 /min Body Temperature 96.6 F Height 63.5 inches 5'3.50" Weight 153.00 lb BMI (Body Mass Index) 26.7 kg/m2 Respiratory Rate 16 /min Results Test Acquired Date Facility Test Result H/L Range Note Complete Blood Count 04/08/2021 [facility] [address] [place] [address] WBC 9.90 x10E3/uL Normal 4.0-10.5 RBC 3.15 x10E6/uL Low 4.20-5.40 Hemoglobin 9.8 g/dL Low 12.0-16.0 Hematocrit 29.2 % Low 37.0-47.0 MCV 92.7 fL Normal 81.0-99.0 MCH 31.1 pg High 27.0-31.0 MCHC 33.6 g/dL Normal 32.7-35.6 RDW 12.9 % Normal 11.5-14.0 Platelet count 300 x10E3/uL Normal 150-450 MPV 9.9 fl High 6.9-9.5 Neutrophils 81.2 % High 34-64 Lymphocytes 8.7 % Low 25-45 Monocytes 9.4 % Normal 1.7-10.6 Eosinophils 0 % Low 0.4-7.0 Basophils 0.3 % Normal 0.1-2.0 Imm. Gran. 0.4 % Normal 0.1-2.0 Abs. Neutro. 8.04 x10E3/uL High 1.2-7.6 Abs. Lymph. 0.86 x10E3/uL Low 1.0-3.5 Abs. [place]. 0.93 x10E3/uL Normal 0.1-1.0 Abs. Eosin. 0.00 x10E3/uL Low 0.1-0.7 Abs. Baso. 0.03 x10E3/uL Normal 0.0-0.1 Abs. Imm. Gran. 0.04 x10E3/uL Normal 0.0-0.1 Anrbc% 0 % Normal 0 Comprehensive Metabolic Prof 04/08/[address] [address] Glu 107 mg/dL Normal 70-110 1 BUN 20 mg/dL Normal 7-23 Cre 0.992 mg/dL Normal 0.500-1.300 GFR 58 mL/min Normal Chloride 106 mmol/L Normal 99-110 Na 139 mmol/L Normal 136-147 Potassium 4.7 mmol/L Normal 3.5-5.1 Tco2 24 mmol/L Normal 20-33 Anion Gap 13.7 Normal 10.0-20.0 CA 9.1 mg/dL Normal 8.3-10.7 Alkaline Phos 65 U/L Normal 45-117 TP 5.8 g/dL Low 6.0-7.8 Alb 3.3 g/dL Low 3.5-5.0 2 GL 2.5 g/dL Normal 2.3-3.5 A/G 1.3 Normal 1.0-2.5 T. Bilirubin 0.4 mg/dL Normal 0.1-1.1 3 Alti 20 U/L Normal 6-54 4 Ast 16 U/L Normal 6-38 5 Laboratory test finding 04/02/[address] [address] Bretype A POSITIVE Normal Type&Screen 04/02/2021 [facility] [address] [place] [address] Blood Type A POSITIVE Normal Antibody Screen NEGATIVE Normal Laboratory test finding 04/02/2021 [facility] [address] [place] [address] [id number] Rheonix Negative Normal Negative 6 Prothrombin Time/Inr 03/25/2021 [facility] entr [address] [place] [address] (315)- - Prothrombin Time 12.5 seconds Normal 12.7-14.5 Inr 0.89 Normal 7 Complete Blood Count 03/25/2021 [facility] C entr [address] [place] [address] (315)- - White Blood Count 4.9 10 Normal 4.0-10.0 Red Blood Count 3.71 10 Low 4.00-5.40 Hemoglobin 11.2 g/dL Low 12.0-15.5 Hematocrit 36.1 % Normal 36.0-47.0 Mean Corpuscular Volume 97.3 fl High 80.0-96.0 Mean Corpuscular Hemoglobin 30.2 pg Normal 27.0-33.0 Mean Corpuscular HGB Conc 31.0 g/dL Low 32.0-36.5 Red Cell Distribution Width 13.1 % Normal 11.5-14.5 Platelet Count, Automated 347 10 Normal 150-450 Nucleated Red Blood Cell % 0.0 % Normal 0-0 Laboratory test finding 03/25/2021 [facility] Centr [address] [place] [address] (315)- - Erythrocyte Sedimentation Rate 35 mm/hr High 0-30 Comprehensive Metabolic Profil 03/25/2021 [facility] [address] [place] [address] (315)- - Glucose, Fasting 83 mg/dL Normal 70-100 Blood Urea Nitrogen 23 mg/dL High 7-18 Creatinine For GFR 1.10 mg/dL Normal 0.55-1.30 Glomerular Filtration Rate 51.5 Normal >39 8 Sodium Level 140 mEq/L Normal 136-145 Potassium Serum 4.6 mEq/L Normal 3.5-5.1 Chloride Level 110 mEq/L High 98-107 Carbon Dioxide Level 26 mEq/L Normal 21-32 Anion Gap 4 mEq/L Low 8-16 Calcium Level 8.9 mg/dL Normal 8.8-10.2 Ast/Sgot 14 U/L Normal 7-37 Alt/SGPT 20 U/L Normal 12-78 Alkaline Phosphatase 71 U/L Normal 45-117 Bilirubin,Total 0.4 mg/dL Normal 0.2-1.0 Total Protein 6.7 GM/DL Normal 6.4-8.2 Albumin 3.7 GM/DL Normal 3.2-5.2 Albumin/Globulin Ratio 1.2 Normal 1.2-2.2 1 Patients taking Sulfasalazin e may have falsely depressed Glucose levels. Patients taking Sulfapyridine may have falsely elevated Glucose levels. Patients should be drawn for Glucose before the initial administration of either drug. 2 ESRD Dialysis patient Albumi n reference range: 2.9-4.4 g/dL 3 The Dimension [place] Total Bi lirubin is not recommended for patients undergoing treatment with eltrombopag (Promacta) due to the potential for falsely elevated results. 4 Patients taking Sulfasalazin e and/or Sulfapyridine may have falsely depressed ALT levels. Patients should be drawn for ALT before the initial administration of either drug. 5 Patients taking Sulfasalazin e and/or Sulfapyridine may have falsely depressed AST levels. Patients should be drawn for AST before the initial administration of either drug. 6 The ICS Mobile COVID-19 MDx Ass ay is an endpoint RT-PCR assay intended for the qualitative detection of nucleic acid from SARS-CoV-2 virus. Positive results are indicative of the presence of SARS-CoV-2 RNA; clinical correlation with patient history and other diagnostic information is necessary to determine patient infection status. Negative results do not preclude SARS-CoV-2 infection and should not be used as the sole basis for patient management decisions. The ALICE Appx MDx Assay is only for use under the Food and Drug Administration's Emergency Use Authorization. 7 THERAPUTIC HUMAN INR VALUES INDICATIONS NORMAL RANGES PROPHYLAXIS/TREATMENT OF: VENOUS THROMBOSIS 2.0-3.0 PULMONARY EMBOLISM 2.0-3.0 PREVENTION OF SYSTEMIC EMBOLISM FROM: TISSUE HEART VALVES 2.0-3.0 ACUTE MYOCARDIAL INFARCTION 2.0-3.0 VALVULAR HEART DISEASE 2.0-3.0 ATRIAL FIBRILLATION 2.0-3.0 MECHANICAL VALVES(HIGH RISK) 2.5-3.5 RECURRENT MYOCARDIAL INFARCTION 2.5-3.5 8 Units are mL/min/1.73 m2 Chronic Kidney Disease Staging per NKF: Stage I & II GFR >=60 Normal to Mildly Decreased Stage III GFR 30-59 Moderately Decreased Stage IV GFR 15-29 Severely Decreased Stage V GFR <15 Very Little GFR Left ESRD GFR <15 on SCENE SHIFTER Procedures Date Code Description Status 05/07/2021 95753 Therapeutic Procedure, Each 15 M inutes Completed 05/01/2021 69690 Therapeutic Procedure, Each 15 M inutes Completed 04/28/2021 34362 Therapeutic Procedure, Each 15 M inutes Completed 04/23/2021 82605 Therapeutic Procedure, Each 15 M inutes Completed 04/21/2021 90490 Therapeutic Procedure, Each 15 M inutes Completed 04/17/2021 03177 Therapeutic Procedure, Each 15 M inutes Completed 04/15/2021 60822 Therapeutic Procedure, Each 15 M inutes Completed 04/10/2021 13992 Physical Therapy Eval - Low Comp lexity Completed 04/07/2021 65525 Arthroplasty "Total Knee" Medial & Lateral W/ Or W/O Patella Resu Completed 03/03/2021 02196 Office/Outpatient Established Lo w MDM 20-29 Min Completed 03/03/2021 14319 Inject/Drain Joint/Bursa Major C ompleted 02/13/2021 51834 Office/Outpatient Established Mo d MDM 30-39 Min Completed 12/22/2020 07864 Office/Outpatient Established Mo d MDM 30-39 Min Completed 12/22/2020 26361 X-Ray Hip Unilateral With Pelvis 2-3 Views Completed 12/22/202044049 Inject/Drain Joint/Bursa Major C ompleted 11/12/2020 46600 Office/Outpatient Established Lo w MDM 20-29 Min Completed 11/12/2020 43508 X-Ray Knee Complete W/Obliques & Tunnel And/Or Standing Views Completed Medical Devices Description No Information Available Encounters Type Date Location Provider Dx Diagnosis Office Visit 04/21/2021 8:15a Mickie Villarreal MD Z4 7.1 Aftercare following joint replacement surgery Z96.651 Presence of right artificial knee joint Office Visit 04/01/2021 10:00a [facility]ck[facility] Gibbs PA-C Z01.818 Encounter for other preprocedural examination M17.11 Unilateral primary osteoarth ritis, right knee Office Visit 03/03/2021 4:45p Mickie Tello, P.A. M17.12 Unilateral primary osteoarthritis, left knee Office Visit 02/13/2021 9:15a Mickie Villarreal MD M1 7.11 Unilateral primary osteoarthritis, right knee R26.9 Unspecified abnormalities of gait and mobility Office Visit 12/22/2020 2:15p Mickie Villarreal MD M1 7.11 Unilateral primary osteoarthritis, right knee R26.9 Unspecified abnormalities of gait and mobility Office Visit 11/12/2020 10:15a [place] NarayanAShaun M17.11 Unilateral primary osteoarthritis, right knee Assessments Date Code Description Provider 05/07/2021 Z47.1 Aftercare following joint replac ement surgery Stella Antoinecara, MSPT 05/07/2021 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 Stella ClarenceShaun Bergman, MSPT 05/01/2021 Z47.1 Aftercare following joint replac ement surgery Danamarie Ortolano, ADVANCED PRACTICE NURSE 05/01/2021 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 Danamarie Ortolano, ADVANCED PRACTICE NURSE 04/28/2021 Z47.1 Aftercare following joint replac ement surgery Yris Izquierdo, ADVANCED PRACTICE NURSE 04/28/2021 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 Yris Izquierdo, ADVANCED PRACTICE NURSE 04/23/2021 Z47.1 Aftercare following joint replac ement surgery Carol Lu, ADVANCED PRACTICE NURSE 04/23/2021 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 Carol Lu, ADVANCED PRACTICE NURSE 04/21/2021 Z47.1 Aftercare following joint replac ement surgery Danamarie Ortolano, ADVANCED PRACTICE NURSE 04/21/2021 Z47.1 Aftercare following joint replac ement surgery Zully Villarreal MD 04/21/2021 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 Danamarie Ortolano, ADVANCED PRACTICE NURSE 04/21/2021 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 Zully Villarreal MD 04/17/2021 Z47.1 Aftercare following joint replac ement surgery Stella Bergman, MSPT 04/17/2021 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 Stella Bergman, MSPT 04/15/2021 Z47.1 Aftercare following joint replac ement surgery Danamarie Ortolano, ADVANCED PRACTICE NURSE 04/15/2021 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 Danamarie Ortolano, ADVANCED PRACTICE NURSE 04/10/2021 Z47.1 Aftercare following joint replac ement surgery Stella Bergman, ADITHYA 04/10/2021 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 ADITHYA Cox 04/07/2021 M17.11 Unilateral primary osteoarthriti s, right knee Zully Villarreal MD 04/01/2021 Z01.818 Encounter for other preprocedura l examination Violeta Gibbs PA-C 04/01/2021 M17.11 Unilateral primary osteoarthriti s, right knee Violeta Gibbs PA-C 03/03/2021 M17.12 Unilateral primary osteoarthriti s, left knee Santosh Tello, PShaunA. 02/13/2021 M17.11 Unilateral primary osteoarthriti s, right knee Zully Villarreal MD 02/13/2021 R26.9 Unspecified abnormalities of gai t and mobility Zully Villarreal MD 12/22/2020 M17.11 Unilateral primary osteoarthriti s, right knee Zully Villarreal MD 12/22/2020 R26.9 Unspecified abnormalities of gai t and mobility Zully Villarreal MD 11/12/2020 M17.11 Unilateral primary osteoarthriti s, right knee Santosh Tello, P.A. Plan of Treatment Future Appointment(s):* 05/20/2021 11:00 am - ADITHYA Cox at Physical Therapy * 05/18/2021 10:30 am - Karlos Gates PTA at Physical Therapy * 06/12/2021 10:30 am - Zully Villarreal MD at [facility] * 05/14/2021 10:30 am - ADITHYA Cox at Physical Therapy Functional Status Description No Information Available Mental Status Description No Information Available Referrals Refer to Reason for Referral Status Appt Date Violeta Gibbs PA-C Physical therapy left knee p er medicare no auth req based on medical necessity, [place] [facility] [place] passed to pt dept sw. Created [address] [place] [address] [address] [place] [address] [phone] Brandon Villarreal MD SURGERY NO AUTH REQUIRED FOR TOTAL RT KNEE([id number]) TO SURGERY NT Created [address] [facility], [address] [place] [address] [phone]
--- OUTSIDE RECORDS SUMMARY | 2021-05-16 12:07 | CCD | Continuity of Care Document ---
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 Lymph. 0.86 x10E3/uL Low 1.0-3.5 Abs. [place]. 0.93 x10E3/uL Normal 0.1-1.0 Abs. Eosin. 0.00 x10E3/uL Low 0.1-0.7 Abs. Baso. 0.03 x10E3/uL Normal 0.0-0.1 Abs. Imm. Gran. 0.04 x10E3/uL Normal 0.0-0.1 Anrbc% 0 % Normal 0 Comprehensive Metabolic Prof 04/08/[address] [address] Glu 107 mg/dL Normal 70-110 1 BUN [...] Normal 6-38 5 Laboratory test finding 04/02/[address] [place] [address] [address] Bretype A POSITIVE Normal Type&Screen 04/02/2021 [facility] [address] [place] [address] Blood Type A POSITIVE Normal Antibody Screen NEGATIVE Normal Laboratory test finding 04/02/2021 [facility] [address] [place] [address] [id number] Rheonix Negative Normal Negative 6 Prothrombin Time/Inr 03/25/2021 [facility] entr [address] [place] [address] (315)- - Prothrombin Time 12.5 seconds Normal 12.7-14.5 Inr 0.89 Normal 7 Complete Blood Count 03/25/2021 [facility] C entr [address] [place] [address] (315)- - White Blood Count 4.9 10 [...] % Normal 0-0 Laboratory test finding 03/25/2021 [facility] [address] [place] [address] (315)- - Erythrocyte Sedimentation Rate 35 mm/hr High 0-30 Comprehensive Metabolic Profil 03/25/2021 [facility] [address] [place] [address] (315)- - Glucose, Fasting 83 mg/dL Normal [...] reference range: 2.9-4.4 g/dL 3 The Dimension [place] Total Bi lirubin is not recommended for [...] initial administration of either drug. 6 The avocarrot COVID-19 MDx Ass ay is an endpoint [...] sole basis for patient management decisions. The Selo Reservax MDx Assay is only for use under [...] Little GFR Left ESRD GFR <15 on WOOD TYPE CUTTER Procedures Date Code Description Status 05/12/2021 29143 Therapeutic Procedure, Each 15 M inutes Completed 05/07/2021 91982 Therapeutic Procedure, Each 15 M inutes Completed 05/01/2021 83818 Therapeutic Procedure, Each 15 M inutes Completed 04/28/2021 44326 Therapeutic Procedure, Each 15 M inutes Completed 04/23/2021 76801 Therapeutic Procedure, Each 15 M inutes Completed 04/21/2021 26707 Therapeutic Procedure, Each 15 M inutes Completed 04/17/2021 60458 Therapeutic Procedure, Each 15 M inutes Completed 04/15/2021 78480 Therapeutic Procedure, Each 15 M inutes Completed 04/10/2021 81818 Physical Therapy Eval - Low Comp lexity Completed 04/07/2021 22691 Arthroplasty "Total Knee" Medial & Lateral W/ Or W/O Patella Resu Completed 03/03/2021 96540 Office/Outpatient Established Lo w MDM 20-29 Min Completed 03/03/2021 40783 Inject/Drain Joint/Bursa Major C ompleted 02/13/2021 25002 Office/Outpatient Established Mo d MDM 30-39 Min Completed 12/22/2020 36636 Office/Outpatient Established Mo d MDM 30-39 Min Completed 12/22/2020 97832 X-Ray Hip Unilateral With Pelvis 2-3 Views Completed 12/22/202087689 Inject/Drain Joint/Bursa Major C ompleted 11/12/2020 01447 Office/Outpatient Established Lo w MDM 20-29 Min Completed 11/12/2020 58348 X-Ray Knee Complete W/Obliques & Tunnel And/Or Standing Views Completed Medical Devices Description No Information Available Encounters Type Date Location Provider Dx Diagnosis Office Visit 04/21/2021 8:15a Mickie Villarreal MD Z4 7.1 Aftercare following joint replacement surgery Z96.651 Presence of right artificial knee joint Office Visit 04/01/2021 10:00a Mickie Gibbs PA-C Z01.818 Encounter for other preprocedural [...] gait and mobility Office Visit 11/12/2020 10:15a Yunior Meade M17.11 Unilateral primary osteoarthritis, right knee Assessments Date Code Description Provider 05/12/2021 Z47.1 Aftercare following joint replac ement surgery Stella Clarence[facility]aun Bergman, [facility] 05/12/2021 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 Stella Bergman, [facility] 05/07/2021 Z47.1 Aftercare following joint replac ement surgery Stella Bergman, [facility] 05/07/2021 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 Stella Bergman, [facility] 05/01/2021 Z47.1 Aftercare following joint replac ement surgery Danamarie Ortolano, [employer] 05/01/2021 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 Danamarie Ortolano, [employer] 04/28/2021 Z47.1 Aftercare following joint replac ement surgery Yris Izquierdo, [employer] 04/28/2021 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 Yris Izquierdo, [employer] 04/23/2021 Z47.1 Aftercare following joint replac ement surgery Carol Lu, [employer] 04/23/2021 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 Carol Lu, [employer] 04/21/2021 Z47.1 Aftercare following joint replac ement surgery Danamarie Ortolano, [employer] 04/21/2021 Z47.1 Aftercare following joint replac ement surgery Zully Villarreal MD 04/21/2021 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 Danamarie Ortolano, [employer] 04/21/2021 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 Zully Villarreal MD 04/17/2021 Z47.1 Aftercare following joint replac ement surgery Stella Bergman, [facility] 04/17/2021 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 Stella Bergman, MSPT 04/15/2021 Z47.1 Aftercare following joint replac ement surgery Danamarie Ortolano, [employer] 04/15/2021 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 Danamarie Ortolano, [employer] 04/10/2021 Z47.1 Aftercare following joint replac ement surgery Stella Antoinecara, MSPT 04/10/2021 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 Stella Antoinecara, [facility] 04/07/2021 M17.11 Unilateral primary osteoarthriti s, right knee Zully Villarreal MD 04/01/2021 Z01.818 Encounter for other preprocedura l examination Violeta Gibbs PA-C 04/01/2021 M17.11 Unilateral primary osteoarthriti s, right knee Violeta Gibbs PA-C 03/03/2021 M17.12 Unilateral primary osteoarthriti s, left knee Santosh Tello, P.A. 02/13/2021 M17.11 Unilateral primary osteoarthriti s, right [...] 10:30 am - Zully Villarreal MD at [place] Functional Status Description No Information Available Mental Status Description No Information Available Referrals Refer to Dr Reason for Referral Status Appt Date Violeta Gibbs PA-C Physical therapy left knee p er medicare no auth req based on medical necessity, patient is going to [facility], passed to pt dept sw. Created [address] [facility] [address] [place] [address] [phone] Brandon Villarreal MD SURGERY NO AUTH REQUIRED FOR TOTAL RT KNEE([id number]) TO SURGERY NT Created [address] [facility], [address] [place] [address] [phone]
--- OUTSIDE RECORDS SUMMARY | 2021-05-16 12:07 | CCD | Continuity of Care Document ---
Author Author Yasemin BERGMAN MSPT Organization Unknown Address [address] [place] [address] Phone [phone] Care Team Providers Care Drafter Detail Name Role Phone Charlie Culp MD AUTM [phone] Problems Active Problems Provider Date Essential hypertension [...] Advanced Formula Tablets Unknown Calcium 600/Vitamin D3 [id number] Tablets Unknown Fluticasone Propionate Nasal [place] 50mcg/Act Suspension 2 sprays each nostril every [...] H/L Range Note Complete Blood Count 04/08/2021 [facility] [address] [place] [address] WBC 9.90 x10E3/uL Normal 4.0-10.5 RBC 3.15 [...] Abs. Lymph. 0.86 x10E3/uL Low 1.0-3.5 Abs. [place]. 0.93 x10E3/uL Normal 0.1-1.0 Abs. Eosin. 0.00 x10E3/uL Low 0.1-0.7 Abs. Baso. 0.03 x10E3/uL Normal 0.0-0.1 Abs. Imm. Gran. 0.04 x10E3/uL Normal 0.0-0.1 Anrbc% 0 % Normal 0 Comprehensive Metabolic Prof 04/08/[address] [address] Glu 107 mg/dL Normal 70-110 1 BUN [...] Normal 6-38 5 Laboratory test finding 04/02/[address] [address] Bretype A POSITIVE Normal Type&Screen 04/02/2021 [facility] [address] [place] [address] Blood Type A POSITIVE Normal Antibody Screen NEGATIVE Normal Laboratory test finding 04/02/2021 [facility] [address] [place] [address] Oauzaq75 Rheonix Negative Normal Negative 6 Prothrombin Time/Inr 03/25/2021 [facility] entr [address] [place] [address] (315)- - Prothrombin Time 12.5 seconds Normal 12.7-14.5 Inr 0.89 Normal 7 Complete Blood Count 03/25/2021 [facility] entr [address] [place] [address] (315)- - White Blood Count 4.9 10 [...] % Normal 0-0 Laboratory test finding 03/25/2021 [facility] [address] [place] [address] (315)- - Erythrocyte Sedimentation Rate 35 mm/hr High 0-30 Comprehensive Metabolic Profil 03/25/2021 [facility] [address] [place] [address] (315)- - Glucose, Fasting 83 mg/dL Normal [...] reference range: 2.9-4.4 g/dL 3 The Dimension [place] Total Bi lirubin is not recommended for [...] initial administration of either drug. 6 The Coomuna COVID-19 MDx Ass ay is an endpoint [...] sole basis for patient management decisions. 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 Procedures Date Code Description Status 05/12/2021 88827 Therapeutic Procedure, Each 15 M inutes Completed 05/07/2021 97979 Therapeutic Procedure, Each 15 M inutes Completed 05/01/2021 89688 Therapeutic Procedure, Each 15 M inutes Completed 04/28/2021 71672 Therapeutic Procedure, Each 15 M inutes Completed 04/23/2021 30871 Therapeutic Procedure, Each 15 M inutes Completed 04/21/2021 51030 Therapeutic Procedure, Each 15 M inutes Completed 04/17/2021 01517 Therapeutic Procedure, Each 15 M inutes Completed 04/15/2021 72601 Therapeutic Procedure, Each 15 M inutes Completed 04/10/2021 17181 Physical Therapy Eval - Low Comp lexity Completed 04/07/2021 99512 Arthroplasty "Total Knee" Medial & Lateral W/ Or W/O Patella Resu Completed 03/03/2021 66051 Office/Outpatient Established Lo w MDM 20-29 Min Completed 03/03/2021 52065 Inject/Drain Joint/Bursa Major C ompleted 02/13/2021 02985 Office/Outpatient Established Mo d MDM 30-39 Min Completed 12/22/2020 18834 Office/Outpatient Established Mo d MDM 30-39 Min Completed 12/22/2020 40167 X-Ray Hip Unilateral With Pelvis 2-3 Views Completed 12/22/202002096 Inject/Drain Joint/Bursa Major C ompleted 11/12/2020 99026 Office/Outpatient Established Lo w MDM 20-29 Min Completed 11/12/2020 49888 X-Ray Knee Complete W/Obliques & Tunnel And/Or [...] joint replac ement surgery Stella ClarenceShaun Bergman, [facility] 05/12/2021 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 Stella Bergman, [facility] 05/07/2021 Z47.1 Aftercare following joint replac ement surgery Stella Bergman, [facility] 05/07/2021 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 Stella Bergman, [facility] 05/01/2021 Z47.1 Aftercare following joint replac ement surgery Danamarie Ortolano, [facility] [employer] 05/01/2021 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 Danamarie Ortolano, [employer] 04/28/2021 Z47.1 Aftercare following joint replac ement surgery Yris Izquierdo, [employer] 04/28/2021 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 Yris Izquierdo, [employer] 04/23/2021 Z47.1 Aftercare following joint replac ement surgery Carol Lu, [employer] 04/23/2021 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 Carol Lu, [employer] 04/21/2021 Z47.1 Aftercare following joint replac ement surgery Danamarie Ortolano, [employer] 04/21/2021 Z47.1 Aftercare following joint replac ement surgery Zully Villarreal MD 04/21/2021 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 Danamarie Ortolano, [employer] 04/21/2021 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 Zully Villarreal MD 04/17/2021 Z47.1 Aftercare following joint replac ement surgery Stella Bergman, [facility] 04/17/2021 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 Stella Bergman, [facility]SP[facility] 04/15/2021 Z47.1 Aftercare following joint replac ement surgery Danamarie Ortolano, [employer] 04/15/2021 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 Danamarie Ortolano, [employer] 04/10/2021 Z47.1 Aftercare following joint replac ement surgery Stella LimaShaun Bergman, MSPT 04/10/2021 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 Stella ClarenceShaun Bergman, MSPT 04/07/2021 M17.11 Unilateral primary osteoarthriti s, right [...] 10:30 am - Zully Villarreal MD at [place] * 05/14/2021 10:30 am - ADITHYA Cox at Physical Therapy Functional Status Description No Information Available Mental Status Description No Information Available Referrals Refer to Reason for Referral Status Appt Date Violeta Gibbs PA-C Physical therapy left knee p er medicare no auth req based on medical necessity, patient is going to ncog, passed to pt dept sw. Created [facility] [address] [place] [address] [phone] Brandon Villarreal MD SURGERY NO AUTH REQUIRED FOR TOTAL RT KNEE([id number]) TO SURGERY NT Created [facility], [address] [place] [address] [phone]
--- OUTSIDE RECORDS SUMMARY | 2021-05-16 12:07 | CCD ---
Author Author [facility] Organization [facility] Address Unknown Phone Unavailable Care Team Providers Care Medical Biller Name Role Phone Charlie Culp Unavailable PROBLEMS Type Condition ICD9-CM Code [id number] Code Onset Dates Condition S tatus W/U Status Risk SNOMED Code Notes Problem Cystocele N81.10 Active confirmed 597801689 Problem Osteopenia M85.80 Active confirmed 016810468 Osteopenia by DEXA 2009 (mild, femoral neck) in the past. A repeat bone density in March 2016 was not remarkable for a significant change. On HCTZ, calcium with vitamin D, and an additional vitamin D supplement. Her vitamin D level was 37 in June 2019. She is going to have another bone density study in 2020 but her knee surgery is taking priority. Problem History of adenomatous polyp of colon Z86.010 Ac tive confirmed [id number] See colonoscopy report June 2018. Problem Primary osteoarthritis of right knee M17.11 Act serafin confirmed [id number] She has significant right knee arthritis which has progressed to the point where she is interested in joint replacement surgery. She may pursue that at any time from my standpoint. Problem Hypertension I10 Active confirmed 0370664 3 On benazepril HCTZ in the past, but she developed a cough in 2018 and now she is on irbesartan HCT and amlodipine. Has no endorgan complications. Blood pressure is reasonably controlled. She is advised to periodically monitor home blood pressures. Problem Other mcfp (current) drug therapy Z79.899 A ctive confirmed 089922857 Problem Hypercholesterolemia E78.00 Active confirmed 27381532 On Lipitor. She switched from Zocor in 07/2010. Lipids are are reasonably controlled as of January 2021, since the dose was increased in July 2020. She has a high HDL. Problem Gastroesophageal reflux disease without esophagitis K21.9 Active confirmed 214725523 She takes omeprazole . She had some chest discomforts in May 2016 at which time that medication was prescribed. EGD was performed in 06/2018 and she had negative biopsies. ALLERGIES Allergen (clinical drug ingredient) Drug/Non Drug Allergy do cumented on EMR Reaction Allergy Type Onset Date Status losartan Cozaar([facility] Code:[address]-99) pt does not recall Drug All ergy Active Penicillin (For Allergies Use Only) Anaphylaxis Drug Aller gy Active alendronate Fosamax([facility] Code:[address]-25) muscle/joint pain Drug Al lergy Active Sulfasalazine Sulfa Antibiotics pt does not recall Drug Allergy Active moxifloxacin Avelox Anaphylaxis Drug Allergy Active ENCOUNTERS from 1945 to 2021-05-14 Encounter Location Date Provider Diagnosis [address] [phone] [place] [address] Apr, [facility] Vaccine Route Administration Date Status Influenza Pharmacy Given Unknown Apr 02, 2020 Adminis tered COVID-19 dose #1 given elsewhere Unspecified Unknown Jul 12, 2020 Administered COVID-19 dose #2 given elsewhere Unspecified Unknown Aug 09, 2020 Administered Zoster 50mcg/0.5mL Shingrix Unknown Feb 15, 2018 Admi nistered Zoster 50mcg/0.5mL Shingrix Unknown Jun 05, 2018 Admi nistered Influenza 18 yrs & older Flublok IM Intramuscular Apr 24, 2019 Administered Influenza 6mo & up Fluzone Unknown Mar 11, 2014 Admin istered Influenza (High Dose 65 & up) Unknown Mar 09, 2018 Ad ministered Influenza (High Dose 65 & up) IM Intramuscular Mar 28, 2017 A dministered Influenza (High Dose 65 & up) IM Intramuscular Mar 31, 2016 A dministered Influenza (High Dose 65 & up) IM Intramuscular Mar 10, 2015 A dministered Zoster 0.65mL Zostavax Unknown Feb 10, 2009 Administe red Pneumococcal Adult 0.5mL Pneumovax 23 Unknown Feb 10 08 Administered TDAP Unknown Jul 15, 2013 Administered Pneumococcal 0.5mL Prevnar 13 IM Intramuscular Mar 10, 2015 A dministered SOCIAL HISTORY Sex Assigned At : Social History Observation Description Sex Assigned At Unknown Audit Question Answer Notes Total Score: 1 Interpretation: Alcohol Education Language: Question Answer Notes Languages spoken: Gibraltarian Pentecostalism: Question Answer Notes Pentecostalism No jehovah's witness beliefs that would impact health care. Domestic Violence: Question Answer Notes Status: Sexual Hx: Question Answer Notes Had sex in the last 12 months (vaginal, oral, or anal)? Yes Have you ever had an STD? No with Men only Drug and Alcohol Question Answer Notes Total Score: 0 Interpretation: No problems reported Alcohol Screening: Question Answer Notes Did you have a drink containing alcohol in the past year? Ye s Points 1 Interpretation Negative How often did you have six or more drinks on one occas ion in the past year? Never (0 points) How many drinks did you have on a typica l day when you were drinking in the past year? 1 or 2 (0 points) How often did you have a drink containing alcohol in t he past year? Monthly or less (1 point) REASON FOR REFERRAL No Information VITAL SIGNS No information MEDICATIONS Medication SIG (Take, Route, Frequency, Duration) Notes Start Da te End Date Status Atorvastatin Calcium 40 MG 1 tablet Orally Once a day for 90 days Active Meloxicam 15 MG 1 tablet Orally daily prn Active Aspirin EC 81 MG 1 tablet Orally Every other day Active Flonase 50 MCG/ACT 2 sprays in each nostril Nasally Once a day for 30 days Active amLODIPine Besylate 5 MG 1 tablet Orally Once a day for 90 day(s) Active Omeprazole 20 MG 1 cap Orally once daily as needed Active Irbesartan-hydroCHLOROthiazide 300-12.5 MG 1 tablet Orally Once a day for 90 Active PROCEDURES No Information RESULTS No Results REASON FOR VISIT Cant eat, Looking for labs MEDICAL (GENERAL) HISTORY Type Description Date Medical History Hypertension Medical History Hypercholesterolemia Medical History Osteopenia Medical History Gastroesophageal reflux disease without esophagitis Surgical History Laparoscopically assisted hy sterectomy and bilateral oophorectomy and appendectomy 10/2002 Surgical History Colonoscopy 06/2008 Surgical History Colonoscopy 08/2013 Surgical History Colonoscopy and EGD 06/2018 Surgical History Right knee replacement-Dr. Carlitos ortiz 04/07/2021 Hospitalization History [facility]-Presyncopal episode due to severe wrist pain, HTN, ERASMO, HLD 04/01-04/02/2020 Goals Section No Information Health Concerns No Information MEDICAL EQUIPMENT No Information MENTAL STATUS No Information FUNCTIONAL STATUS No Information ASSESSMENTS No Information PLAN OF TREATMENT Next Appt Details Provider Name:Arianna Gary, 2020-06 09:15:00 AM, [address] [place] [address], , [place], [address], Provider Name:Charlie Culp, 2021-08-11 10 :00:00 AM, [address] [place] [address], , [place], [address], Insurance Providers Payer Name Payer Address Payer Phone Insured Name Patient Relati onship to Insured Coverage Start Date Coverage End Date MEDICARE Part A and B [address] [facility] [phone] [phone] [employer] [facility] HE[facility] OPTIONS [facility] CLAIM [facility] [address] [facility] [phone] [employer]
--- OUTSIDE RECORDS SUMMARY | 2021-05-16 12:07 | CCD ---
Author Author [facility] Organization [facility] Address Unknown Phone Unavailable Care Team Providers Care Slp Teacher Name Role Phone Charlie Culp Unavailable PROBLEMS Type Condition ICD9-CM Code OWD07-PS Code Onset Dates Condition S tatus W/U Status Risk SNOMED Code Notes Problem Cystocele N81.10 Active confirmed 261210568 Problem Osteopenia M85.80 Active confirmed 401806624 Osteopenia by DEXA 2009 (mild, femoral neck) [...] polyp of colon Z86.010 Ac tive confirmed 041885848 See colonoscopy report June 2018. Problem Primary osteoarthritis of right knee M17.11 Act serafin confirmed [id number] She has significant right knee arthritis which has progressed to the point where she is interested in joint replacement surgery. She may pursue that at any time from my standpoint. Problem Hypertension I10 Active confirmed 6338985 3 On benazepril HCTZ in the past, but she developed a cough in 2018 and now she is on irbesartan HCT and amlodipine. Has no endorgan complications. Blood pressure is reasonably controlled. She is advised to periodically monitor home blood pressures. Problem Other residential (current) drug therapy Z79.899 A ctive confirmed 172435039 Problem Hypercholesterolemia E78.00 Active confirmed 06971203 On Lipitor. She switched from Zocor in 07/2010. Lipids are are reasonably controlled as of January 2021, since the dose was increased in July 2020. She has a high HDL. Problem Gastroesophageal reflux disease without esophagitis K21.9 Active confirmed 627616499 She takes omeprazole . She had some chest discomforts in May 2016 at which time that medication was prescribed. EGD was performed in 06/2018 and she had negative biopsies. ALLERGIES Allergen (clinical drug ingredient) Drug/Non Drug Allergy do cumented on EMR Reaction Allergy Type Onset Date Status losartan Cozaar([facility] Code:[address]-20) pt does not recall Drug All ergy Active Penicillin (For Allergies Use Only) Anaphylaxis Drug Aller gy Active alendronate Fosamax([facility] Code:[address]-46) muscle/joint pain Drug Al lergy Active Sulfasalazine Sulfa Antibiotics pt does not recall Drug Allergy Active moxifloxacin Avelox Anaphylaxis Drug Allergy Active ENCOUNTERS from 1945 to 2021-05-12 Encounter Location Date Provider Diagnosis [address] [phone] [place] [address] Apr, [facility] Vaccine Route Administration Date Status Influenza Pharmacy [...] Education Language: Question Answer Notes Languages spoken: Malaysian Taoist: Question Answer Notes Taoist No methodist beliefs that would impact health care. Domestic [...] Information RESULTS No Results REASON FOR VISIT stomach issues? MEDICAL (GENERAL) HISTORY Type Description Date Medical History Hypertension Medical History Hypercholesterolemia Medical History Osteopenia Medical History Gastroesophageal reflux disease without esophagitis Surgical History Laparoscopically assisted hy sterectomy and bilateral oophorectomy and appendectomy 10/2002 Surgical History Colonoscopy 06/2008 Surgical History Colonoscopy 08/2013 Surgical History Colonoscopy and EGD 06/2018 Surgical History Right knee replacement-Dr. Carlitos White naamelissa 04/07/2021 Hospitalization History [facility]-Presyncopal episode due to severe wrist pain, HTN, ERASMO, HLD 04/01-04/02/2020 Goals Section No Information Health Concerns No Information MEDICAL EQUIPMENT No Information MENTAL STATUS No Information FUNCTIONAL STATUS No Information ASSESSMENTS No Information PLAN OF TREATMENT Next Appt Details Provider Name:Arianna Gary, 2020-06 09:15:00 AM, [address] [place] [address], , [place], [address], Provider Name:Charlie Culp, 2021-08-11 10 :00:00 AM, [address] [place] [address], , [place], [address], Insurance Providers Payer Name Payer Address Payer Phone Insured Name Patient Relati onship to Insured Coverage Start Date Coverage End Date [facility] HEALTH CARE OPTIONS [facility] CLAIM DIV [address] [facility] [id number] [employer] MEDICARE Part A and B [address] [facility] [phone] [employer]
--- OUTSIDE RECORDS SUMMARY | 2021-05-16 12:07 | CCD | Continuity of Care Document ---
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 Lymph. 0.86 x10E3/uL Low 1.0-3.5 Abs. Bertie. 0.93 x10E3/uL Normal 0.1-1.0 Abs. Eosin. 0.00 x10E3/uL Low 0.1-0.7 Abs. Baso. 0.03 x10E3/uL Normal 0.0-0.1 Abs. Imm. Gran. 0.04 x10E3/uL Normal 0.0-0.1 Anrbc% 0 % Normal 0 Comprehensive Metabolic Prof 04/08/[address] [address] Glu 107 mg/dL Normal 70-110 1 BUN [...] Normal 6-38 5 Laboratory test finding 04/02/[address] [address] Bretype A POSITIVE Normal Type&Screen 04/02/2021 [facility] [address] [place] [address] Blood Type A POSITIVE Normal Antibody Screen NEGATIVE Normal Laboratory test finding 04/02/2021 [facility] [address] [place] [address] [id number] Rheonix Negative Normal Negative 6 Prothrombin Time/Inr 03/25/2021 [facility] entr [address] [place] [address] (315)- - Prothrombin Time 12.5 seconds Normal 12.7-14.5 Inr 0.89 Normal 7 Complete Blood Count 03/25/2021 [facility] C entr [address] [place] [address] (315)- - White Blood Count 4.9 10 [...] % Normal 0-0 Laboratory test finding 03/25/2021 [facility] l Centr [address] [place] [address] (315)- - Erythrocyte Sedimentation Rate 35 mm/hr High 0-30 Comprehensive Metabolic Profil 03/25/2021 [facility] [address] [place] [address] (315)- - Glucose, Fasting 83 mg/dL Normal [...] reference range: 2.9-4.4 g/dL 3 The Dimension [place] Total Bi lirubin is not recommended for [...] initial administration of either drug. 6 The [employer] COVID-19 MDx Ass ay is an endpoint [...] sole basis for patient management decisions. The [employer] MDx Assay is only for use under [...] Little GFR Left ESRD GFR <15 on NET UI DEVELOPER Procedures Date Code Description Status 05/01/2021 46195 Therapeutic Procedure, Each 15 M inutes Completed 04/28/2021 87064 Therapeutic Procedure, Each 15 M inutes Completed 04/23/2021 49085 Therapeutic Procedure, Each 15 M inutes Completed 04/21/2021 02614 Therapeutic Procedure, Each 15 M inutes Completed 04/17/2021 37525 Therapeutic Procedure, Each 15 M inutes Completed 04/15/2021 60154 Therapeutic Procedure, Each 15 M inutes Completed 04/10/2021 35701 Physical Therapy Eval - Low Comp lexity Completed 04/07/2021 55127 Arthroplasty "Total Knee" Medial & Lateral W/ Or W/O Patella Resu Completed 03/03/2021 60566 Office/Outpatient Established Lo w MDM 20-29 Min Completed 03/03/202174160 Inject/Drain Joint/Bursa Major C ompleted 02/13/2021 22652 Office/Outpatient Established Mo d MDM 30-39 Min Completed 12/22/2020 75330 Office/Outpatient Established Mo d MDM 30-39 Min Completed 12/22/2020 91101 X-Ray Hip Unilateral With Pelvis 2-3 Views Completed 12/22/202063366 Inject/Drain Joint/Bursa Major C ompleted 11/12/2020 98096 Office/Outpatient Established Lo w MDM 20-29 Min Completed 11/12/2020 21406 X-Ray Knee Complete W/Obliques & Tunnel And/Or [...] gait and mobility Office Visit 11/12/2020 10:15a Cicero Santosh Tello P.A. M17.11 Unilateral primary osteoarthritis, right knee Assessments Date Code Description Provider 05/01/2021 Z47.1 Aftercare following joint replac ement surgery Danamarie Ortolano, MUSHROOM GROWING SUPERVISOR 05/01/2021 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 Danamarie Ortolano, MUSHROOM GROWING SUPERVISOR 04/28/2021 Z47.1 Aftercare following joint replac ement surgery Yris Izquierdo, MUSHROOM GROWING SUPERVISOR 04/28/2021 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 Yris Izquierdo, MUSHROOM GROWING SUPERVISOR 04/23/2021 Z47.1 Aftercare following joint replac ement surgery Carolstanley Chatmanlew Lu, MUSHROOM GROWING SUPERVISOR 04/23/2021 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 Carol Corina Lu, MUSHROOM GROWING SUPERVISOR 04/21/2021 Z47.1 Aftercare following joint replac ement surgery Danamarie Ortolano, MUSHROOM GROWING SUPERVISOR 04/21/2021 Z47.1 Aftercare following joint replac ement surgery Zully Villarreal MD 04/21/2021 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 Danamarie Ortolano, MUSHROOM GROWING SUPERVISOR 04/21/2021 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 Zully Villarreal MD 04/17/2021 Z47.1 Aftercare following joint replac ement surgery Stella Bergman, [facility] 04/17/2021 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 Stella Bergman, [facility] 04/15/2021 Z47.1 Aftercare following joint replac ement surgery Danamarie Ortolano, MUSHROOM GROWING SUPERVISOR 04/15/2021 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 Danamarie Ortolano, MUSHROOM GROWING SUPERVISOR 04/10/2021 Z47.1 Aftercare following joint replac ement surgery Stella Bergman, [facility] 04/10/2021 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 Stella Bergman, [facility] 04/07/2021 M17.11 Unilateral primary osteoarthriti s, right knee Zully Villarreal MD 04/01/2021 Z01.818 Encounter for other preprocedura l examination Violeta Gibbs PA-C 04/01/2021 M17.11 Unilateral primary osteoarthriti s, right knee Violeta Gibbs PA-C 03/03/2021 M17.12 Unilateral primary osteoarthriti s, left knee Yunior Griffin 02/13/2021 M17.11 Unilateral primary osteoarthriti s, right knee Zully Villarreal MD 02/13/2021 R26.9 Unspecified abnormalities of gai t and mobility Zully Villarreal MD 12/22/2020 M17.11 Unilateral primary osteoarthriti s, right knee Zully Villarreal MD 12/22/2020 R26.9 Unspecified abnormalities of gai t and mobility Zully Villarreal MD 11/12/2020 M17.11 Unilateral primary osteoarthriti s, right knee Santosh Tello, P.A. Plan of Treatment Future Appointment(s):* 05/05/2021 11:00 am - ADITHYA Cox at Physical Therapy * 05/14/2021 11:00 am - Karlos Byrd PTA at Physical Therapy * 05/12/2021 11:00 am - ADITHYA Cox at Physical Therapy * 05/07/2021 11:00 am - ADITHYA Cox at Physical Therapy Functional Status Description No Information Available Mental Status Description No Information Available Referrals Refer to Dr Reason for Referral Status Appt Date Violeta Gibbs PA-C Physical therapy left knee p er medicare no auth req based on medical necessity, patient is going to [facility] [place], passed to pt dept sw. Created [address] [place] [address] [address] [place] [address] [phone] Brandon Villarreal MD SURGERY NO AUTH REQUIRED FOR TOTAL RT KNEE([id number]) TO SURGERY NT Created [facility], [address] [place] [address] [phone]
--- OUTSIDE RECORDS SUMMARY | 2021-05-16 12:08 | CCD | Continuity of Care Document ---
Author Author Yasemin VILLARREAL MD Organization Unknown Address [address] [place] [address], [facility] e [address] [place] [address] Phone [phone] Care Team Providers Care Oracle Hrms Developer Name Role Phone Charlie Culp MD AUTM [phone] Ramandeep Purdy PA-C AUTM [phone] Problems Active Problems Provider Date Essential hypertension [...] Advanced Formula Tablets Unknown Calcium 600/Vitamin D3 248-937nx-Itfk Tablets Unknown Fluticasone Propionate Nasal [place] 50mcg/Act Suspension 2 sprays each nostril every [...] H/L Range Note Complete Blood [facility] [address] [place] [address] WBC 9.90 x10E3/uL Normal 4.0-10.5 RBC 3.15 [...] Abs. Lymph. 0.86 x10E3/uL Low 1.0-3.5 Abs. [place]. 0.93 x10E3/uL Normal 0.1-1.0 Abs. Eosin. 0.00 x10E3/uL Low 0.1-0.7 Abs. Baso. 0.03 x10E3/uL Normal 0.0-0.1 Abs. Imm. Gran. 0.04 x10E3/uL Normal 0.0-0.1 Anrbc% 0 % Normal 0 Comprehensive Metabolic Prof 04/08/[address] [address] Glu 107 mg/dL Normal 70-110 1 BUN [...] Normal 6-38 5 Laboratory test finding 04/02/[address] [address] Bretype A POSITIVE Normal Type&Screen 04/02/2021 [facility] [address] [place] [address] Blood Type A POSITIVE Normal Antibody Screen NEGATIVE Normal Laboratory test finding 04/02/2021 [facility] [address] [place] [address] [id number] Rheonix Negative Normal Negative 6 Prothrombin Time/Inr 03/25/2021 [facility] [address] [place] [address] (315)- - Prothrombin Time 12.5 seconds Normal 12.7-14.5 Inr 0.89 Normal 7 Complete Blood Count 03/25/2021 [facility] C entr [address] [place] [address] (315)- - White Blood Count 4.9 10 [...] % Normal 0-0 Laboratory test finding 03/25/2021 [facility] l Centr [address] [place] [address] (315)- - Erythrocyte Sedimentation Rate 35 mm/hr High 0-30 Comprehensive Metabolic Profil 03/25/2021 [facility] [address] [place] [address] (315)- - Glucose, Fasting 83 mg/dL Normal [...] reference range: 2.9-4.4 g/dL 3 The Dimension [place] Total Bi lirubin is not recommended for [...] initial administration of either drug. 6 The [employer] COVID-19 MDx Ass ay is an endpoint [...] sole basis for patient management decisions. 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 Procedures Date Code Description Status 04/17/2021 65282 Therapeutic Procedure, Each 15 M inutes Completed 04/15/2021 70181 Therapeutic Procedure, Each 15 M inutes Completed 04/10/2021 23246 Physical Therapy Eval - Low Comp lexity Completed 04/07/2021 68305 Arthroplasty "Total Knee" Medial & Lateral W/ Or W/O Patella Resu Completed 03/03/2021 99211 Office/Outpatient Established Lo w MDM 20-29 Min Completed 03/03/2021 67381 Inject/Drain Joint/Bursa Major C ompleted 02/13/2021 85024 Office/Outpatient Established Mo d MDM 30-39 Min Completed 12/22/2020 13493 Office/Outpatient Established Mo d MDM 30-39 Min Completed 12/22/2020 39457 X-Ray Hip Unilateral With Pelvis 2-3 Views Completed 12/22/202019759 Inject/Drain Joint/Bursa Major C ompleted 11/12/2020 25041 Office/Outpatient Established Lo w MDM 20-29 Min Completed 11/12/2020 05698 X-Ray Knee Complete W/Obliques & Tunnel And/Or [...] gait and mobility Office Visit 11/12/2020 10:15a Mickie Tello, P.A. M17.11 Unilateral primary osteoarthritis, right knee Assessments Date Code Description Provider 04/21/2021 Z47.1 Aftercare following joint replac ement surgery Zully Villarreal MD 04/21/2021 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 Zully Villarreal MD 04/17/2021 Z47.1 Aftercare following joint replac ement surgery Stella Bergman, MSPT 04/17/2021 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 Stella Bergman, MSPT 04/15/2021 Z47.1 Aftercare following joint replac ement surgery Danamarie Ortolano, ADJUNCT BUSINESS INSTRUCTOR 04/15/2021 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 Danamarie Ortolano, ADJUNCT BUSINESS INSTRUCTOR 04/10/2021 Z47.1 Aftercare following joint replac ement surgery [facility] 04/10/2021 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 Stella Bergman, [facility] 04/07/2021 M17.11 Unilateral primary osteoarthriti s, right knee Zully Villarreal MD 04/01/2021 Z01.818 Encounter for other preprocedura philly Gibbs PA-C 04/01/2021 M17.11 Unilateral primary osteoarthriti [...] Tello, P.A. Plan of Treatment Future Appointment(s):* 04/23/2021 1:30 pm - Carol Lu, ADJUNCT BUSINESS INSTRUCTOR at Physical Therapy 04/21/2021 - Zully Villarreal MD* Z47.1 Aftercare following joint replacement surgery* Follow up:* 4-6 weeks for rt knee recheck with DPV * Z96.651 Presence of right artificial knee joint Functional Status Description No Information Available Mental Status Description No Information Available Referrals Refer to Reason for Referral Status Appt Date Violeta Gibbs, PARogerC Physical therapy left knee p er medicare no auth req based on medical necessity, patient [place] going to [facility] [place], passed to pt dept sw. Created [address] [place], [place] [id number] [place] [address] [phone] Brandon Villarreal MD SURGERY NO AUTH REQUIRED FOR TOTAL RT KNEE([id number]) TO SURGERY NT Created [address] [place] [address], [address] [place] [address] [phone]
--- OUTSIDE RECORDS SUMMARY | 2021-05-16 12:08 | CCD | Continuity of Care Document ---
Author Author Yasemin BYRD [facility] Organization Unknown Address [address] [place] [address] Phone [phone] Care Team Providers Care Van Helper Name Role Phone Charlie Culp MD AUTM [phone] Ramandeep Purdy PA-C AUTM [phone] Problems Active Problems Provider Date Essential hypertension [...] Advanced Formula Tablets Unknown Calcium 600/Vitamin D3 [id number]-Pwyh Tablets Unknown Fluticasone Propionate Nasal [place] 50mcg/Act Suspension 2 sprays each nostril every [...] H/L Range Note Complete Blood Count 04/08/2021 [facility] [address] [place] [address] WBC 9.90 x10E3/uL Normal 4.0-10.5 RBC 3.15 [...] Abs. Lymph. 0.86 x10E3/uL Low 1.0-3.5 Abs. [place]. 0.93 x10E3/uL Normal 0.1-1.0 Abs. Eosin. 0.00 x10E3/uL Low 0.1-0.7 Abs. Baso. 0.03 x10E3/uL Normal 0.0-0.1 Abs. Imm. Gran. 0.04 x10E3/uL Normal 0.0-0.1 Anrbc% 0 % Normal 0 Comprehensive Metabolic Prof 04/08/[address] [address] Glu 107 mg/dL Normal 70-110 1 BUN [...] Normal 6-38 5 Laboratory test finding 04/02/[address] [address] Bretype A POSITIVE Normal Type&Screen 04/02/2021 [facility] [address] [place] [address] Blood Type A POSITIVE Normal Antibody Screen NEGATIVE Normal Laboratory test finding 04/02/2021 [facility] [address] [place] [address] [id number] Rheonix Negative Normal Negative 6 Prothrombin Time/Inr 03/25/2021 [facility] [address] [place] [address] (315)- - Prothrombin Time 12.5 seconds Normal 12.7-14.5 Inr 0.89 Normal 7 Complete Blood Count 03/25/2021 [facility] C entr [address] [place] [address] (315)- - White Blood Count 4.9 10 [...] % Normal 0-0 Laboratory test finding 03/25/2021 [facility] l Centr [address] [place] [address] (315)- - Erythrocyte Sedimentation Rate 35 mm/hr High 0-30 Comprehensive Metabolic Profil 03/25/2021 [facility] [address] [place] [address] (315)- - Glucose, Fasting 83 mg/dL Normal [...] reference range: 2.9-4.4 g/dL 3 The Dimension [place] Total Bi lirubin is not recommended for [...] initial administration of either drug. 6 The [employer] COVID-19 MDx Ass ay is an endpoint [...] sole basis for patient management decisions. 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 Procedures Date Code Description Status 04/28/2021 92783 Therapeutic Procedure, Each 15 M inutes Completed 04/23/2021 91379 Therapeutic Procedure, Each 15 M inutes Completed 04/21/2021 51335 Therapeutic Procedure, Each 15 M inutes Completed 04/17/2021 05283 Therapeutic Procedure, Each 15 M inutes Completed 04/15/2021 41735 Therapeutic Procedure, Each 15 M inutes Completed 04/10/2021 54262 Physical Therapy Eval - Low Comp lexity Completed 04/07/2021 00735 Arthroplasty "Total Knee" Medial & Lateral W/ Or W/O Patella Resu Completed 03/03/2021 91052 Office/Outpatient Established Lo w MDM 20-29 Min Completed 03/03/2021 66153 Inject/Drain Joint/Bursa Major C ompleted 02/13/2021 33531 Office/Outpatient Established Mo d MDM 30-39 Min Completed 12/22/2020 04720 Office/Outpatient Established Mo d MDM 30-39 Min Completed 12/22/2020 30182 X-Ray Hip Unilateral With Pelvis 2-3 Views Completed 12/22/202065667 Inject/Drain Joint/Bursa Major C ompleted 11/12/2020 80044 Office/Outpatient Established Lo w MDM 20-29 Min Completed 11/12/2020 62523 X-Ray Knee Complete W/Obliques & Tunnel And/Or Standing Views Completed Medical Devices Description No Information Available Encounters Type Date Location Provider Dx Diagnosis Office Visit 04/21/2021 8:15a Mickie Villarreal MD Z4 7.1 Aftercare following joint replacement surgery Z96.651 Presence of right artificial knee joint Office Visit 04/01/2021 10[place] PA-C Z01.818 Encounter for other preprocedural examination M17.11 Unilateral primary osteoarth ritis, right knee Office Visit 03/03/2021 4:45p [place] Tello, P.A. M17.12 Unilateral primary osteoarthritis, left knee Office Visit 02/13/2021 9:15a Mickie Villarreal MD M1 7.11 Unilateral primary osteoarthritis, right knee R26.9 Unspecified abnormalities of gait and mobility Office Visit 12/22/2020 2:15p Mickie Villarreal MD M1 7.11 Unilateral primary osteoarthritis, right knee R26.9 Unspecified abnormalities of gait and mobility Office Visit 11/12/2020 10:15a [place] Yunior Griffin M17.11 Unilateral primary osteoarthritis, right knee Assessments Date Code Description Provider 04/28/2021 Z47.1 Aftercare following joint replac ement surgery Yris Izquierdo, SUPERVISOR ASSEMBLY 04/28/2021 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 Yris Izquierdo, SUPERVISOR ASSEMBLY 04/23/2021 Z47.1 Aftercare following joint replac ement surgery Carol Lu, SUPERVISOR ASSEMBLY 04/23/2021 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 Carol Lu, SUPERVISOR ASSEMBLY 04/21/2021 Z47.1 Aftercare following joint replac ement surgery Danamarie Ortolano, SUPERVISOR ASSEMBLY 04/21/2021 Z47.1 Aftercare following joint replac ement surgery Zully Villarreal MD 04/21/2021 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 Danamarie Ortolano, SUPERVISOR ASSEMBLY 04/21/2021 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 Zully Villarreal MD 04/17/2021 Z47.1 Aftercare following joint replac ement surgery [facility] Berg[facility], [facility] 04/17/2021 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 Stella Bergman, MSPT 04/15/2021 Z47.1 Aftercare following joint replac ement surgery Danamarie Ortolano, SUPERVISOR ASSEMBLY 04/15/2021 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 Danamarie Ortolano, SUPERVISOR ASSEMBLY 04/10/2021 Z47.1 Aftercare following joint replac ement surgery Stella Bergman, MSPT 04/10/2021 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 Stella Bergman, [facility] 04/07/2021 M17.11 Unilateral primary osteoarthriti s, right knee Zully Villarreal MD 04/01/2021 Z01.818 Encounter for other preprocedura philly Gibbs PA-C 04/01/2021 M17.11 Unilateral primary osteoarthriti s, right knee Violeta Gibbs PA-C 03/03/2021 M17.12 Unilateral primary osteoarthriti s, left knee Santosh Tello, PHolden. 02/13/2021 M17.11 Unilateral primary osteoarthriti s, right knee Zully Villarreal MD 02/13/2021 R26.9 Unspecified abnormalities of gai t and mobility Zully Villarreal MD 12/22/2020 M17.11 Unilateral primary osteoarthriti s, right knee Zully Villarreal MD 12/22/2020 R26.9 Unspecified abnormalities of gai t and mobility Zully Villarreal MD 11/12/2020 M17.11 Unilateral primary osteoarthriti s, right knee Santosh Tello, PHolden. Plan of Treatment Future Appointment(s):* 05/14/2021 11:00 am - Karlos Bryd PTA at Physical Therapy * 05/12/2021 11:00 am - ADITHYA Cox at Physical Therapy * 05/07/2021 11:00 am - ALEXANDR CoxT at Physical Therapy * 05/05/2021 11:00 am - Karlos Byrd SUPERVISOR ASSEMBLY at Physical Therapy * 05/01/2021 10:00 am - Karlos Byrd SUPERVISOR ASSEMBLY at Physical Therapy Functional Status Description No Information Available Mental Status Description No Information Available Referrals Refer to Dr Reason for Referral Status Appt Date Violeta Gibbs PA-C Physical therapy left knee p er medicare no auth req based on medical necessity, patient is going [place] [facility] [place], passed to pt dept sw. Created [address] [place], [place] [address] [place] [address] [phone] Brandon Villarreal MD SURGERY NO AUTH REQUIRED FOR TOTAL RT KNEE([id number]) TO SURGERY NT Created [address] [place] [address], [address] [place] [address] [phone]
--- OUTSIDE RECORDS SUMMARY | 2021-05-16 12:08 | CCD | Continuity of Care Document ---
Author Author Yasemin VILLARREAL MD Organization Unknown Address [address] [place] [address], [address] [address] Phone [phone] Care Team Providers Care Margarine Maker Name Role Phone Charlie Culp MD AUTM [phone] Problems Active Problems Provider Date Essential hypertension [...] Advanced Formula Tablets Unknown Calcium 600/Vitamin D3 [id number] Tablets Unknown Fluticasone Propionate Nasal [place] 50mcg/Act Suspension 2 sprays each nostril every [...] H/L Range Note Complete Blood Count 04/08/2021 [facility] [address] [place] [address] WBC 9.90 x10E3/uL Normal 4.0-10.5 RBC 3.15 [...] Abs. Lymph. 0.86 x10E3/uL Low 1.0-3.5 Abs. [place]. 0.93 x10E3/uL Normal 0.1-1.0 Abs. Eosin. 0.00 x10E3/uL Low 0.1-0.7 Abs. Baso. 0.03 x10E3/uL Normal 0.0-0.1 Abs. Imm. Gran. 0.04 x10E3/uL Normal 0.0-0.1 Anrbc% 0 % Normal 0 Comprehensive Metabolic Prof 04/08/[address] [address] Glu 107 mg/dL Normal 70-110 1 BUN [...] Normal 6-38 5 Laboratory test finding 04/02/[address] [address] Bretype A POSITIVE Normal Type&Screen 04/02/2021 [facility] [address] [place] [address] Blood Type A POSITIVE Normal Antibody Screen NEGATIVE Normal Laboratory test finding 04/02/2021 [facility] [address] [place] [address] [id number] Rheonix Negative Normal Negative 6 Prothrombin Time/Inr 03/25/2021 [facility] [address] [place] [address] (315)- - Prothrombin Time 12.5 seconds Normal 12.7-14.5 Inr 0.89 Normal 7 Complete Blood Count 03/25/2021 [facility] C entr [address] [place] [address] (315)- - White Blood Count 4.9 10 [...] % Normal 0-0 Laboratory test finding 03/25/2021 [facility] l Centr [address] [place] [address] (315)- - Erythrocyte Sedimentation Rate 35 mm/hr High 0-30 Comprehensive Metabolic Profil 03/25/2021 [facility] [address] [place] [address] (315)- - Glucose, Fasting 83 mg/dL Normal [...] reference range: 2.9-4.4 g/dL 3 The Dimension [place] Total Bi lirubin is not recommended for [...] initial administration of either drug. 6 The Kontera COVID-19 MDx Ass ay is an endpoint [...] sole basis for patient management decisions. 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 Date Code Description Status 04/28/2021 50063 Therapeutic Procedure, Each 15 M inutes Completed 04/23/2021 99768 Therapeutic Procedure, Each 15 M inutes Completed 04/21/2021 01893 Therapeutic Procedure, Each 15 M inutes Completed 04/17/2021 26187 Therapeutic Procedure, Each 15 M inutes Completed 04/15/2021 45190 Therapeutic Procedure, Each 15 M inutes Completed 04/10/2021 13502 Physical Therapy Eval - Low Comp lexity Completed 04/07/2021 83164 Arthroplasty "Total Knee" Medial & Lateral W/ Or W/O Patella Resu Completed 03/03/2021 80849 Office/Outpatient Established Lo w MDM 20-29 Min Completed 03/03/2021 90012 Inject/Drain Joint/Bursa Major C ompleted 02/13/2021 02315 Office/Outpatient Established Mo d MDM 30-39 Min Completed 12/22/2020 96103 Office/Outpatient Established Mo d MDM 30-39 Min Completed 12/22/2020 36828 X-Ray Hip Unilateral With Pelvis 2-3 Views Completed 12/22/202053954 Inject/Drain Joint/Bursa Major C ompleted 11/12/2020 16754 Office/Outpatient Established Lo w MDM 20-29 Min Completed 11/12/2020 86887 X-Ray Knee Complete W/Obliques & Tunnel And/Or [...] following joint replac ement surgery Yris Izquierdo, BURRING MACHINE OPERATOR 04/28/2021 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 Yris Izquierdo, BURRING MACHINE OPERATOR 04/23/2021 Z47.1 Aftercare following joint replac ement surgery Carol Lu, BURRING MACHINE OPERATOR 04/23/2021 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 Carol Lu, BURRING MACHINE OPERATOR 04/21/2021 Z47.1 Aftercare following joint replac ement surgery Danamarie Ortolano, BURRING MACHINE OPERATOR 04/21/2021 Z47.1 Aftercare following joint replac ement surgery Zully Villarreal MD 04/21/2021 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 Danamarie Ortolano, BURRING MACHINE OPERATOR 04/21/2021 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 Zully Villarreal MD 04/17/2021 Z47.1 Aftercare following joint replac ement surgery [facility], [facility] 04/17/2021 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 Stella Bergman, [facility] 04/15/2021 Z47.1 Aftercare following joint replac ement surgery Danamarie Ortolano, BURRING MACHINE OPERATOR 04/15/2021 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 Danamarie Ortolano, BURRING MACHINE OPERATOR 04/10/2021 Z47.1 Aftercare following joint replac ement surgery Stella Bergman, [facility] 04/10/2021 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 Stella Bergman, [facility] 04/07/2021 M17.11 Unilateral primary osteoarthriti s, [...] M17.11 Unilateral primary osteoarthriti s, right knee Yunior Griffin Plan of Treatment Future Appointment(s):* 05/05/2021 11:00 am - ADITHYA Cox at Physical Therapy * 05/14/2021 11:00 am - Karlos Gates PTA at Physical Therapy * 05/12/2021 11:00 [...] on medical necessity, [place] [facility] [place] pt dept sw. Created [address] [place] [address] [address] [place] [address] [phone] Brandon Villarreal MD SURGERY NO AUTH REQUIRED FOR TOTAL RT KNEE([id number]) TO SURGERY NT Created [facility], [address] [place] [address] [phone]
--- OUTSIDE RECORDS SUMMARY | 2021-05-16 12:08 | CCD | Continuity of Care Document ---
Author Author Yasemin BERGMAN MSPT Organization Unknown Address [address] [place] [address] Phone [phone] Care Team Providers Care Peanut Roaster Name Role Phone Charlie Culp MD AUTM [phone] Ramandeep Purdy PA-C AUTM [phone] Problems Active Problems Provider Date Essential hypertension Zully Villarreal MD Onset: 04/19 Pure hypercholesterolemia Zully Villarreal MD Onset: Social History Type Date Description Comments Sex Unknown ETOH Use Occasionally consumes alcohol Tobacco Use Start: Unknown End: Unknown Patient is a former smoker a pack a week Smoking Status Reviewed: 04/19/19 Patient is a former smoker a pack [...] Advanced Formula Tablets Unknown Calcium 600/Vitamin D3 [id number] Tablets Unknown Fluticasone Propionate Nasal [place] 50mcg/Act Suspension 2 sprays each nostril every night at bedtime Unknown Immunizations Description No Information Available Vital Signs Date Vital Result Comment 04/01/2021 10:22am BP Systolic 120 mmHg BP Diastolic 70 mmHg Heart Rate 80 /min Body Temperature 96.6 F Height 63.5 inches 5'3.50" Weight 153.00 lb BMI (Body Mass Index) 26.7 kg/m2 Respiratory Rate 16 /min 02/13/2021 9:08am Body Temperature 97.1 F Height 63 inches 5'3" Weight 150.12 lb BMI (Body Mass Index) 26.6 kg/m2 Results Test Acquired Date Facility Test Result H/L Range Note Complete Blood Count 04/08/2021 [facility] [address] [place] [address] WBC 9.90 x10E3/uL Normal 4.0-10.5 RBC 3.15 [...] Abs. Lymph. 0.86 x10E3/uL Low 1.0-3.5 Abs. [place]. 0.93 x10E3/uL Normal 0.1-1.0 Abs. Eosin. 0.00 x10E3/uL Low 0.1-0.7 Abs. Baso. 0.03 x10E3/uL Normal 0.0-0.1 Abs. Imm. Gran. 0.04 x10E3/uL Normal 0.0-0.1 Anrbc% 0 % Normal 0 Comprehensive Metabolic Prof 04/08/[address] [address] Glu 107 mg/dL Normal 70-110 1 BUN [...] Normal 6-38 5 Laboratory test finding 04/02/2021 [facility] [address] [place] [address] Bretype A POSITIVE Normal Type&Screen 04/02/2021 [facility] [address] [place] [address] Blood Type A POSITIVE Normal Antibody Screen NEGATIVE Normal Laboratory test finding 04/02/[address] [address] [id number] Rheonix Negative Normal Negative 6 Prothrombin Time/Inr 03/25/2021 [facility] entr [address] [place] [address] (315)- - Prothrombin Time 12.5 seconds Normal 12.7-14.5 Inr 0.89 Normal 7 Complete Blood Count 03/25/2021 [facility] entr [address] [place] [address] (315)- - White Blood Count 4.9 10 [...] % Normal 0-0 Laboratory test finding 03/25/2021 [facility] l Centr [address] [place] [address] (315)- - Erythrocyte Sedimentation Rate 35 mm/hr High 0-30 Comprehensive Metabolic Profil 03/25/2021 [place] [address] [place] [address] (315)- - Glucose, Fasting 83 mg/dL Normal [...] reference range: 2.9-4.4 g/dL 3 The Dimension [place] Total Bi lirubin is not recommended for [...] initial administration of either drug. 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 Procedures Date Code Description Status 04/15/2021 63941 Therapeutic Procedure, Each 15 M inutes Completed 04/10/2021 98558 Physical Therapy Eval - Low Comp lexity Completed 04/07/2021 55573 Arthroplasty "Total Knee" Medial & Lateral W/ Or W/O Patella Resu Completed 03/03/2021 89257 Office/Outpatient Established Lo w MDM 20-29 Min Completed 03/03/2021 20585 Inject/Drain Joint/Bursa Major C ompleted 02/13/2021 44564 Office/Outpatient Established Mo d MDM 30-39 Min Completed 12/22/2020 05019 Office/Outpatient Established Mo d MDM 30-39 Min Completed 12/22/2020 10061 X-Ray Hip Unilateral With Pelvis 2-3 Views Completed 12/22/202049118 Inject/Drain Joint/Bursa Major C ompleted 11/12/2020 92232 Office/Outpatient Established Lo w MDM 20-29 Min Completed 11/12/2020 66167 X-Ray Knee Complete W/Obliques & Tunnel And/Or Standing Views Completed Medical Devices Description No Information Available Encounters Type Date Location Provider Dx Diagnosis Office Visit 04/01/2021 10:00a [place] PA-C Z01.818 Encounter for other preprocedural [...] right knee Assessments Date Code Description Provider 04/15/2021 Z47.1 Aftercare following joint replac ement surgery Karlos Gates PTA 04/15/2021 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 Karlos Gates, STUDENT UNION CONSULTANT 04/10/2021 Z47.1 Aftercare following joint replac ement surgery Stella Bergman, MSPT 04/10/2021 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 Stella Bergman, MSPT 04/07/2021 M17.11 Unilateral primary osteoarthriti [...] Tello, P.A. Plan of Treatment Future Appointment(s):* 04/21/2021 9:00 am - Karlos Gates PTA at Physical Therapy * 04/23/2021 1:30 pm - Carol Lu PTA at Physical Therapy * 04/21/2021 8:15 am - Zully Villarreal MD at [place] Functional Status Description No Information Available Mental Status Description No Information Available Referrals Refer to Reason for Referral Status Appt Date Violeta Gibbs PA-C Physical therapy left knee p er medicare no auth req based on medical necessity, [place] [facility] [place] to pt dept sw. Created [address] [place] [address] [place] [address] [phone] Brandon Villarreal MD SURGERY NO AUTH REQUIRED FOR TOTAL RT KNEE([id number]) TO SURGERY NT Created [address] [facility], [address] [place] [address] [phone]
--- OUTSIDE RECORDS SUMMARY | 2021-05-16 12:08 | CCD | Continuity of Care Document ---
Author Author Yasemin COOK [facility] Organization Unknown Address [address] [place] [address] Phone [phone] Care Team Providers Care Precision Honer Name Role Phone Charlie Culp MD AUTM [phone] Ramandeep Purdy PA-C AUTM [phone] Problems Active Problems Provider Date Essential hypertension [...] Advanced Formula Tablets Unknown Calcium 600/Vitamin D3 [id number]-[id number] Tablets Unknown Fluticasone Propionate Nasal [place] 50mcg/Act Suspension 2 sprays each nostril every [...] H/L Range Note Complete Blood Count 04/08/2021 [facility] [address] [place] [address] WBC 9.90 x10E3/uL Normal 4.0-10.5 RBC 3.15 [...] Abs. Lymph. 0.86 x10E3/uL Low 1.0-3.5 Abs. [place]. 0.93 x10E3/uL Normal 0.1-1.0 Abs. Eosin. 0.00 x10E3/uL Low 0.1-0.7 Abs. Baso. 0.03 x10E3/uL Normal 0.0-0.1 Abs. Imm. Gran. 0.04 x10E3/uL Normal 0.0-0.1 Anrbc% 0 % Normal 0 Comprehensive Metabolic Prof 04/08/[address] [address] Glu 107 mg/dL Normal 70-110 1 BUN [...] Normal 6-38 5 Laboratory test finding 04/02/[address] [address] Bretype A POSITIVE Normal Type&Screen 04/02/2021 [facility] [address] [place] [address] Blood Type A POSITIVE Normal Antibody Screen NEGATIVE Normal Laboratory test finding 04/02/2021 [facility] [address] [place] [address] [id number] Rheonix Negative Normal Negative 6 Prothrombin Time/Inr 03/25/2021 [facility] [address] [place] [address] (315)- - Prothrombin Time 12.5 seconds Normal 12.7-14.5 Inr 0.89 Normal 7 Complete Blood Count 03/25/2021 [facility] C entr [address] [place] [address] (315)- - White Blood Count 4.9 10 [...] % Normal 0-0 Laboratory test finding 03/25/2021 [facility] l Centr [address] [place] [address] (315)- - Erythrocyte Sedimentation Rate 35 mm/hr High 0-30 Comprehensive Metabolic Profil 03/25/2021 [facility] [address] [place] [address] (315)- - Glucose, Fasting 83 mg/dL Normal [...] reference range: 2.9-4.4 g/dL 3 The Dimension [place] Total Bi lirubin is not recommended for [...] initial administration of either drug. 6 The Ping4 COVID-19 MDx Ass ay is an endpoint [...] sole basis for patient management decisions. The Methodx MDx Assay is only for use under [...] Little GFR Left ESRD GFR <15 on OXYGEN THERAPIST Procedures Date Code Description Status 04/28/2021 19837 Therapeutic Procedure, Each 15 M inutes Completed 04/23/2021 36504 Therapeutic Procedure, Each 15 M inutes Completed 04/21/2021 48909 Therapeutic Procedure, Each 15 M inutes Completed 04/17/2021 23195 Therapeutic Procedure, Each 15 M inutes Completed 04/15/2021 63861 Therapeutic Procedure, Each 15 M inutes Completed 04/10/2021 29974 Physical Therapy Eval - Low Comp lexity Completed 04/07/2021 79908 Arthroplasty "Total Knee" Medial & Lateral W/ Or W/O Patella Resu Completed 03/03/2021 24795 Office/Outpatient Established Lo w MDM 20-29 Min Completed 03/03/202142242 Inject/Drain Joint/Bursa Major C ompleted 02/13/2021 60892 Office/Outpatient Established Mo d MDM 30-39 Min Completed 12/22/2020 07707 Office/Outpatient Established Mo d MDM 30-39 Min Completed 12/22/2020 73694 X-Ray Hip Unilateral With Pelvis 2-3 Views Completed 12/22/202048912 Inject/Drain Joint/Bursa Major C ompleted 11/12/2020 29107 Office/Outpatient Established Lo w MDM 20-29 Min Completed 11/12/2020 53868 X-Ray Knee Complete W/Obliques & Tunnel And/Or [...] and mobility Office Visit 11/12/2020 10:15a [place]ie Wellington GriffinA. 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 Carol Cook, X RAY INSPECTOR 04/21/2021 Z47.1 Aftercare following joint replac ement surgery Danamarie Ortolano, X RAY INSPECTOR 04/21/2021 Z47.1 Aftercare following joint replac ement surgery Zully Villarreal MD 04/21/2021 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 Danamarie Ortolano, X RAY INSPECTOR 04/21/2021 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 Zully Villarreal MD 04/17/2021 Z47.1 Aftercare following joint replac ement surgery Stella [facility], [facility] 04/17/2021 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 Stella Bergman, MSPT 04/15/2021 Z47.1 Aftercare following joint replac ement surgery Danamarie Ortolano, X RAY INSPECTOR 04/15/2021 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 Danamarie Ortolano, X RAY INSPECTOR 04/10/2021 Z47.1 Aftercare following joint replac ement surgery Stella Bergman, MSPT 04/10/2021 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 Stella Bergman, [facility] 04/07/2021 M17.11 Unilateral primary osteoarthriti s, [...] Future Appointment(s):* 05/14/2021 11:00 am - Karlos Gates PTA at Physical Therapy * 05/12/2021 11:00 am - ADITHYA Cox at Physical Therapy * 05/07/2021 11:00 am - ALEXANDR CoxT at Physical Therapy * 05/05/2021 11:00 am - Karlos Gates, X RAY INSPECTOR at Physical Therapy * 05/01/2021 10:00 am - Karlos Gates X RAY INSPECTOR at Physical Therapy Functional Status Description No Information Available Mental Status Description No Information Available Referrals Refer to Dr Reason for Referral Status Appt Date Violeta Gibbs PA-C Physical therapy left knee p er medicare no auth req based on medical necessity, [facility] passed to pt dept sw. Created [address] [place], [place] [address] [place] [address] [phone] Brandon Villarreal MD SURGERY NO AUTH REQUIRED FOR TOTAL RT KNEE([id number]) TO SURGERY NT Created [address] [place] [address], [address] [place] [address] [phone]
--- OUTSIDE RECORDS SUMMARY | 2021-05-16 12:08 | CCD | Continuity of Care Document ---
Author Author Yasemin BYRD [facility] Organization Unknown Address [address] [place] [address] Phone [phone] Care Team Providers Care Director Of Child Welfare Services Name Role Phone Charlie Culp MD AUTM [phone] Ramandeep Purdy PA-C AUTM [phone] Problems Active Problems Provider Date Essential hypertension [...] Advanced Formula Tablets Unknown Calcium 600/Vitamin D3 [id number]-Vtzh Tablets Unknown Fluticasone Propionate Nasal [place] 50mcg/Act Suspension 2 sprays each nostril every [...] H/L Range Note Complete Blood Count 04/08/2021 [facility] [address] [place] [address] WBC 9.90 x10E3/uL Normal 4.0-10.5 RBC 3.15 [...] Abs. Lymph. 0.86 x10E3/uL Low 1.0-3.5 Abs. [place]. 0.93 x10E3/uL Normal 0.1-1.0 Abs. Eosin. 0.00 x10E3/uL Low 0.1-0.7 Abs. Baso. 0.03 x10E3/uL Normal 0.0-0.1 Abs. Imm. Gran. 0.04 x10E3/uL Normal 0.0-0.1 Anrbc% 0 % Normal 0 Comprehensive Metabolic Prof 04/08/2021 [facility] [address] [place] [address] Glu 107 mg/dL Normal 70-110 1 BUN [...] Normal 6-38 5 Laboratory test finding 04/02/2021 [facility] [address] [place] [address] Bretype A POSITIVE Normal Type&Screen 04/02/2021 [facility] [address] [place] [address] Blood Type A POSITIVE Normal Antibody Screen NEGATIVE Normal Laboratory test finding 04/02/2021 [facility] [address] [place] [address] [id number] Rheonix Negative Normal Negative 6 Prothrombin Time/Inr 03/25/2021 [facility] entr [address] [place] [address] (315)- - Prothrombin Time 12.5 seconds Normal 12.7-14.5 Inr 0.89 Normal 7 Complete Blood Count 03/25/2021 [facility] entr [address] [place] [address] (315)- - White Blood Count 4.9 10 [...] % Normal 0-0 Laboratory test finding 03/25/2021 [facility] l Centr [address] [place] [address] (315)- - Erythrocyte Sedimentation Rate 35 mm/hr High 0-30 Comprehensive Metabolic Profil 03/25/[address] [address] (315)- - Glucose, Fasting 83 mg/dL Normal [...] reference range: 2.9-4.4 g/dL 3 The Dimension [place] Total Bi lirubin is not recommended for [...] initial administration of either drug. 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 Procedures Date Code Description Status 04/17/2021 45447 Therapeutic Procedure, Each 15 M inutes Completed 04/15/2021 82880 Therapeutic Procedure, Each 15 M inutes Completed 04/10/2021 62492 Physical Therapy Eval - Low Comp lexity Completed 04/07/2021 45558 Arthroplasty "Total Knee" Medial & Lateral W/ Or W/O Patella Resu Completed 03/03/2021 12330 Office/Outpatient Established Lo w MDM 20-29 Min Completed 03/03/2021 65976 Inject/Drain Joint/Bursa Major C ompleted 02/13/2021 98478 Office/Outpatient Established Mo d MDM 30-39 Min Completed 12/22/2020 29580 Office/Outpatient Established Mo d MDM 30-39 Min Completed 12/22/2020 68794 X-Ray Hip Unilateral With Pelvis 2-3 Views Completed 12/22/202072276 Inject/Drain Joint/Bursa Major C ompleted 11/12/2020 02019 Office/Outpatient Established Lo w MDM 20-29 Min Completed 11/12/2020 78511 X-Ray Knee Complete W/Obliques & Tunnel And/Or Standing Views Completed Medical Devices Description No Information Available Encounters Type Date Location Provider Dx Diagnosis Office Visit 04/01/2021 10:00a [place] Gibbs PA-C Z01.818 Encounter for other preprocedural [...] gait and mobility Office Visit 11/12/2020 10:15a [place] Tello, P.A. 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 Created [address] [place] [address] [address] [place] [address] [phone] Brandon Villarreal MD SURGERY NO AUTH REQUIRED FOR TOTAL RT KNEE([id number]) TO SURGERY NT Created [address] [place] [address], [address] [place] [address] [phone]
--- OUTSIDE RECORDS SUMMARY | 2021-05-16 12:08 | CCD | Continuity of Care Document ---
Author Author Yasemin COOK [facility] Organization Unknown Address [address] [place] [address] Phone [phone] Care Team Providers Care Rubber Molder Name Role Phone Charlie Culp MD AUTM [phone] Ramandeep Purdy PA-C AUTM [phone] Problems Active Problems Provider Date Essential hypertension [...] Advanced Formula Tablets Unknown Calcium 600/Vitamin D3 [id number] Tablets Unknown Fluticasone Propionate Nasal [place] 50mcg/Act Suspension 2 sprays each nostril every [...] H/L Range Note Complete Blood Count 04/08/2021 [facility] [address] [place] [address] WBC 9.90 x10E3/uL Normal 4.0-10.5 RBC 3.15 [...] Abs. Lymph. 0.86 x10E3/uL Low 1.0-3.5 Abs. [place]. 0.93 x10E3/uL Normal 0.1-1.0 Abs. Eosin. 0.00 x10E3/uL Low 0.1-0.7 Abs. Baso. 0.03 x10E3/uL Normal 0.0-0.1 Abs. Imm. Gran. 0.04 x10E3/uL Normal 0.0-0.1 Anrbc% 0 % Normal 0 Comprehensive Metabolic Prof 04/08/[address] [address] Glu 107 mg/dL Normal 70-110 1 BUN [...] Normal 6-38 5 Laboratory test finding 04/02/[address] [address] Bretype A POSITIVE Normal Type&Screen 04/02/2021 [facility] [address] [place] [address] Blood Type A POSITIVE Normal Antibody Screen NEGATIVE Normal Laboratory test finding 04/02/2021 [facility] [address] [place] [address] [id number] Rheonix Negative Normal Negative 6 Prothrombin Time/Inr 03/25/2021 [facility] [address] [place] [address] (315)- - Prothrombin Time 12.5 seconds Normal 12.7-14.5 Inr 0.89 Normal 7 Complete Blood Count 03/25/2021 [facility] C entr [address] [place] [address] (315)- - White Blood Count 4.9 10 [...] % Normal 0-0 Laboratory test finding 03/25/2021 [facility] l Centr [address] [place] [address] (315)- - Erythrocyte Sedimentation Rate 35 mm/hr High 0-30 Comprehensive Metabolic Profil 03/25/2021 [facility] [address] [place] [address] (315)- - Glucose, Fasting 83 mg/dL Normal [...] reference range: 2.9-4.4 g/dL 3 The Dimension [place] Total Bi lirubin is not recommended for [...] initial administration of either drug. 6 The streamOnce COVID-19 MDx Ass ay is an endpoint [...] sole basis for patient management decisions. The CurrencyFairx MDx Assay is only for use under [...] Little GFR Left ESRD GFR <15 on PREMIUM SERVICE REPRESENTATIVE Procedures Date Code Description Status 04/21/2021 53419 Therapeutic Procedure, Each 15 M inutes Completed 04/17/2021 52815 Therapeutic Procedure, Each 15 M inutes Completed 04/15/2021 68360 Therapeutic Procedure, Each 15 M inutes Completed 04/10/2021 36034 Physical Therapy Eval - Low Comp lexity Completed 04/07/2021 21087 Arthroplasty "Total Knee" Medial & Lateral W/ Or W/O Patella Resu Completed 03/03/2021 58452 Office/Outpatient Established Lo w MDM 20-29 Min Completed 03/03/2021 95446 Inject/Drain Joint/Bursa Major C ompleted 02/13/2021 15298 Office/Outpatient Established Mo d MDM 30-39 Min Completed 12/22/2020 99132 Office/Outpatient Established Mo d MDM 30-39 Min Completed 12/22/2020 53424 X-Ray Hip Unilateral With Pelvis 2-3 Views Completed 12/22/202074218 Inject/Drain Joint/Bursa Major C ompleted 11/12/2020 50884 Office/Outpatient Established Lo w MDM 20-29 Min Completed 11/12/2020 89849 X-Ray Knee Complete W/Obliques & Tunnel And/Or [...] following joint replac ement surgery Danamarie Ortolano, DAMPENER 04/21/2021 Z47.1 Aftercare following joint replac ement surgery Zully Villarreal MD 04/21/2021 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 04/07/2021 M17.11 Unilateral primary osteoarthriti s, right knee Zully Villarreal MD 04/01/2021 Z01.818 Encounter for other preprocedura l lyn Gibbs PA-C 04/01/2021 M17.11 Unilateral primary osteoarthriti s, right knee Violeta Gibbs PA-C 03/03/2021 M17.12 Unilateral primary osteoarthriti s, left knee Santosh Tello, P.AShaun 02/13/2021 M17.11 Unilateral primary osteoarthriti s, right knee Zully Villarreal MD 02/13/2021 R26.9 Unspecified abnormalities of gai t and mobility Zully Villarreal MD 12/22/2020 M17.11 Unilateral primary osteoarthriti s, right knee Zully Villarreal MD 12/22/2020 R26.9 Unspecified abnormalities of gai t and mobility Zully Villarreal MD 11/12/2020 M17.11 Unilateral primary osteoarthriti s, right knee Santosh Tello, PShaunA. Plan of Treatment Future Appointment(s):* 05/01/2021 10:00 am - Karlos Gates, DAMPENER at Physical Therapy * 04/28/2021 10:00 am - Karlos Gates, DAMPENER at Physical Therapy Functional Status Description No Information Available Mental Status Description No Information Available Referrals Refer to Dr Reason for Referral Status Appt Date Violeta Gibbs, SIGRID Physical therapy left knee p er medicare no auth req based on medical necessity, patient is going [place] [facility] [place], passed to pt dept sw. Created [address] [place] [address] [address] [place] [address] [phone] Brandon Villarreal MD SURGERY NO AUTH REQUIRED FOR TOTAL RT KNEE([id number]) TO SURGERY NT Created [address] [place] [address], [address] [place] [address] [phone]
--- OUTSIDE RECORDS SUMMARY | 2021-05-16 12:08 | CCD | Continuity of Care Document ---
Author Author Yasemin [facility]RD [facility] Organization Unknown Address [address] [place] [address] Phone [phone] Care Team Providers Care Day Haul Or Farm Charter Bus Driver Name Role Phone Charlie Culp MD AUTM [phone] Ramandeep Purdy PA-C AUTM [phone] Problems Active Problems Provider Date Essential hypertension [...] Advanced Formula Tablets Unknown Calcium 600/Vitamin D3 118-937lz-Pfhk Tablets Unknown Fluticasone Propionate Nasal [place] 50mcg/Act Suspension 2 sprays each nostril every [...] H/L Range Note Complete Blood Count 04/08/2021 [facility] [address] [place] [address] WBC 9.90 x10E3/uL Normal 4.0-10.5 RBC 3.15 [...] Abs. Lymph. 0.86 x10E3/uL Low 1.0-3.5 Abs. [place]. 0.93 x10E3/uL Normal 0.1-1.0 Abs. Eosin. 0.00 x10E3/uL Low 0.1-0.7 Abs. Baso. 0.03 x10E3/uL Normal 0.0-0.1 Abs. Imm. Gran. 0.04 x10E3/uL Normal 0.0-0.1 Anrbc% 0 % Normal 0 Comprehensive Metabolic Prof 04/08/[address] [address] Glu 107 mg/dL Normal 70-110 1 BUN [...] Normal 6-38 5 Laboratory test finding 04/02/2021 [facility] [address] [place] [address] Bretype A POSITIVE Normal Type&Screen 04/02/2021 [facility] [address] [place] [address] Blood Type A POSITIVE Normal Antibody Screen NEGATIVE Normal Laboratory test finding 04/02/[address] [address] [id number] Rheonix Negative Normal Negative 6 Prothrombin Time/Inr 03/25/2021 [facility] entr [address] [place] [address] (315)- - Prothrombin Time 12.5 seconds Normal 12.7-14.5 Inr 0.89 Normal 7 Complete Blood Count 03/25/2021 [facility] entr [address] [place] [address] (315)- - White Blood Count 4.9 10 [...] % Normal 0-0 Laboratory test finding 03/25/2021 [facility] l Centr [address] [place] [address] (315)- - Erythrocyte Sedimentation Rate 35 mm/hr High 0-30 Comprehensive Metabolic Profil 03/25/2021 [place] [address] [place] [address] (315)- - Glucose, Fasting 83 mg/dL Normal [...] reference range: 2.9-4.4 g/dL 3 The Dimension [place] Total Bi lirubin is not recommended for [...] initial administration of either drug. 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 Procedures Date Code Description Status 04/10/2021 97019 Physical Therapy Eval - Low Comp lexity Completed 04/07/2021 72917 Arthroplasty "Total Knee" Medial & Lateral W/ Or W/O Patella Resu Completed 03/03/2021 54794 Office/Outpatient Established Lo w MDM 20-29 Min Completed 03/03/2021 75057 Inject/Drain Joint/Bursa Major C ompleted 02/13/2021 74053 Office/Outpatient Established Mo d MDM 30-39 Min Completed 12/22/2020 50985 Office/Outpatient Established Mo d MDM 30-39 Min Completed 12/22/2020 00820 X-Ray Hip Unilateral With Pelvis 2-3 Views Completed 12/22/202088506 Inject/Drain Joint/Bursa Major C ompleted 11/12/2020 82853 Office/Outpatient Established Lo w MDM 20-29 Min Completed 11/12/2020 18749 X-Ray Knee Complete W/Obliques & Tunnel And/Or Standing Views Completed Medical Devices Description No Information Available Encounters Type Date Location Provider Dx Diagnosis Office Visit 04/01/2021 10:00a Mickie Gibbs PA-C [...] right knee Assessments Date Code Description Provider 04/10/2021 Z47.1 Aftercare following joint replac ement surgery ADITHYA Cox 04/10/2021 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 Created [address] [place] [address] [phone] Brandon Villarreal MD SURGERY NO AUTH REQUIRED FOR TOTAL RT KNEE([id number]) TO SURGERY NT Created [address] [place] [address], [address] [place] [address] [phone]
--- OUTSIDE RECORDS SUMMARY | 2021-05-16 12:08 | CCD | Continuity of Care Document ---
Author Author Yasemin [facility] Organization Unknown Address [address] [place] [address] Phone [phone] Care Team Providers Care Grill Prep Cook Name Role Phone Charlie Culp MD AUTM [phone] Ramandeep Purdy PA-C AUTM [phone] Problems Active Problems Provider Date Essential hypertension [...] Advanced Formula Tablets Unknown Calcium 600/Vitamin D3 154-243uh-Sgwx Tablets Unknown Fluticasone Propionate Nasal [place] 50mcg/Act Suspension 2 sprays each nostril every [...] H/L Range Note Complete Blood Count 04/08/2021 [facility] [address] [place] [address] WBC 9.90 x10E3/uL Normal 4.0-10.5 RBC 3.15 [...] Abs. Lymph. 0.86 x10E3/uL Low 1.0-3.5 Abs. [place]. 0.93 x10E3/uL Normal 0.1-1.0 Abs. Eosin. 0.00 x10E3/uL Low 0.1-0.7 Abs. Baso. 0.03 x10E3/uL Normal 0.0-0.1 Abs. Imm. Gran. 0.04 x10E3/uL Normal 0.0-0.1 Anrbc% 0 % Normal 0 Comprehensive Metabolic Prof 04/08/[address] [address] Glu 107 mg/dL Normal 70-110 1 BUN [...] Normal 6-38 5 Laboratory test finding 04/02/[address] [address] Bretype A POSITIVE Normal Type&Screen 04/02/2021 [facility] [address] [place] [address] Blood Type A POSITIVE Normal Antibody Screen NEGATIVE Normal Laboratory test finding 04/02/2021 [facility] [address] [place] [address] [id number] Rheonix Negative Normal Negative 6 Prothrombin Time/Inr 03/25/2021 [facility] entr [address] [place] [address] (315)- - Prothrombin Time 12.5 seconds Normal 12.7-14.5 Inr 0.89 Normal 7 Complete Blood Count 03/25/2021 [facility] C entr [address] [place] [address] (315)- - White Blood Count 4.9 10 [...] % Normal 0-0 Laboratory test finding 03/25/2021 [facility] l Centr [address] [place] [address] (315)- - Erythrocyte Sedimentation Rate 35 mm/hr High 0-30 Comprehensive Metabolic Profil 03/25/2021 [facility] [address] [place] [address] (315)- - Glucose, Fasting 83 mg/dL Normal [...] reference range: 2.9-4.4 g/dL 3 The Dimension [place] Total Bi lirubin is not recommended for [...] initial administration of either drug. 6 The [employer] COVID-19 MDx Ass ay is an endpoint [...] sole basis for patient management decisions. The Hyletex MDx Assay is only for use under [...] Little GFR Left ESRD GFR <15 on MANDREL PULLER Procedures Date Code Description Status 04/28/2021 03101 Therapeutic Procedure, Each 15 M inutes Completed 04/23/2021 37675 Therapeutic Procedure, Each 15 M inutes Completed 04/21/2021 31126 Therapeutic Procedure, Each 15 M inutes Completed 04/17/2021 33359 Therapeutic Procedure, Each 15 M inutes Completed 04/15/2021 59286 Therapeutic Procedure, Each 15 M inutes Completed 04/10/2021 23954 Physical Therapy Eval - Low Comp lexity Completed 04/07/2021 04851 Arthroplasty "Total Knee" Medial & Lateral W/ Or W/O Patella Resu Completed 03/03/2021 12467 Office/Outpatient Established Lo w MDM 20-29 Min Completed 03/03/202124511 Inject/Drain Joint/Bursa Major C ompleted 02/13/2021 22180 Office/Outpatient Established Mo d MDM 30-39 Min Completed 12/22/2020 01919 Office/Outpatient Established Mo d MDM 30-39 Min Completed 12/22/2020 01111 X-Ray Hip Unilateral With Pelvis 2-3 Views Completed 12/22/202091480 Inject/Drain Joint/Bursa Major C ompleted 11/12/2020 80261 Office/Outpatient Established Lo w MDM 20-29 Min Completed 11/12/2020 02291 X-Ray Knee Complete W/Obliques & Tunnel And/Or Standing Views Completed Medical Devices Description No Information Available Encounters Type Date Location Provider Dx Diagnosis Office Visit 04/21/2021 8:15a Mickie Villarreal MD Z4 7.1 Aftercare following joint replacement surgery Z96.651 Presence of right artificial knee joint Office Visit 04/01/2021 10:00a Speedlew Gibbs PA-C Z01.818 Encounter for other preprocedural [...] gait and mobility Office Visit 11/12/2020 10:15a SpeedYunior Narayan M17.11 Unilateral primary osteoarthritis, right knee Assessments Date Code Description Provider 04/28/2021 Z47.1 Aftercare following joint replac ement surgery Yris Izquierdo, SCREEN OPERATOR 04/28/2021 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 Yris Izquierdo, SCREEN OPERATOR 04/23/2021 Z47.1 Aftercare following joint replac ement surgery Carol Lu, SCREEN OPERATOR 04/23/2021 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 Carol Lu, SCREEN OPERATOR 04/21/2021 Z47.1 Aftercare following joint replac ement surgery Danamarie Ortolano, SCREEN OPERATOR 04/21/2021 Z47.1 Aftercare following joint replac ement surgery Zully Villarreal MD 04/21/2021 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 Danamarie Ortolano, SCREEN OPERATOR 04/21/2021 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 Zully Villarreal MD 04/17/2021 Z47.1 Aftercare following joint replac ement surgery Stella Bergman, [facility] 04/17/2021 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 Stella Bergman, MSPT 04/15/2021 Z47.1 Aftercare following joint replac ement surgery Danamarie Ortolano, SCREEN OPERATOR 04/15/2021 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 Danamarie Ortolano, SCREEN OPERATOR 04/10/2021 Z47.1 Aftercare following joint replac ement surgery Stella Bergman, MSPT 04/10/2021 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 Stella Bergman, [facility] 04/07/2021 M17.11 Unilateral primary osteoarthriti s, right knee Zully Villarreal MD 04/01/2021 Z01.818 Encounter for other preprocedura l examination Violeta Gibbs PA-C 04/01/2021 M17.11 Unilateral primary osteoarthriti s, right knee Violeta Gbibs PA-C 03/03/2021 M17.12 Unilateral primary osteoarthriti s, left knee Yunior Griffin 02/13/2021 M17.11 Unilateral primary osteoarthriti s, right knee Zully Villarreal MD 02/13/2021 R26.9 Unspecified abnormalities of gai t and mobility Brandon. Carlitos Villarreal MD 12/22/2020 M17.11 Unilateral primary osteoarthriti s, right knee Zully Villarreal MD 12/22/2020 R26.9 Unspecified abnormalities of gai t and mobility Zully Villarreal MD 11/12/2020 M17.11 Unilateral primary osteoarthriti s, right knee Yunior Griffin Plan of Treatment Future Appointment(s):* 05/14/2021 11:00 am - Karlos Gates PTA at Physical Therapy * 05/12/2021 11:00 am - ALEXANDR CoxT at Physical Therapy * 05/07/2021 11:00 am - ALEXANDR CoxT at Physical Therapy * 05/05/2021 11:00 am - Karlos Gates, SCREEN OPERATOR at Physical Therapy * 05/01/2021 10:00 am - Karlos Gates, SCREEN OPERATOR at Physical Therapy Functional Status Description No Information Available Mental Status Description No Information Available Referrals Refer to Dr Reason for Referral Status Appt Date Violeta Gibbs PA-C Physical therapy left knee p er medicare no auth req based on medical necessity, [place] [facility] [place] passed to pt dept sw. Created [address] [place] [address] [address] [place] [address] [phone] Brandon Villarreal MD SURGERY NO AUTH REQUIRED FOR TOTAL RT KNEE([id number]) TO SURGERY NT Created [address] [place] [address], [address] [place] [address] [phone]
--- OUTSIDE RECORDS SUMMARY | 2021-05-16 12:08 | CCD | Continuity of Care Document ---
Author Author Yasemin IZQUIERDO [facility] Organization Unknown Address [address] [place] [address] Phone [phone] Care Team Providers Care Pipe Smoker Machine Operator Name Role Phone Charlie Culp MD AUTM [phone] Ramandeep Purdy PA-C AUTM [phone] Problems Active Problems Provider Date Essential hypertension [...] Advanced Formula Tablets Unknown Calcium 600/Vitamin D3 223-860zx-Uxnb Tablets Unknown Fluticasone Propionate Nasal [place] 50mcg/Act Suspension 2 sprays each nostril every [...] H/L Range Note Complete Blood Count 04/08/2021 [facility] [address] [place] [address] WBC 9.90 x10E3/uL Normal 4.0-10.5 RBC 3.15 [...] Abs. Lymph. 0.86 x10E3/uL Low 1.0-3.5 Abs. [place]. 0.93 x10E3/uL Normal 0.1-1.0 Abs. Eosin. 0.00 x10E3/uL Low 0.1-0.7 Abs. Baso. 0.03 x10E3/uL Normal 0.0-0.1 Abs. Imm. Gran. 0.04 x10E3/uL Normal 0.0-0.1 Anrbc% 0 % Normal 0 Comprehensive Metabolic Prof 04/08/[address] [address] Glu 107 mg/dL Normal 70-110 1 BUN [...] Normal 6-38 5 Laboratory test finding 04/02/[address] [address] Bretype A POSITIVE Normal Type&Screen 04/02/2021 [facility] [address] [place] [address] Blood Type A POSITIVE Normal Antibody Screen NEGATIVE Normal Laboratory test finding 04/02/2021 [facility] [address] [place] [address] [id number] Rheonix Negative Normal Negative 6 Prothrombin Time/Inr 03/25/2021 [facility] [address] [place] [address] (315)- - Prothrombin Time 12.5 seconds Normal 12.7-14.5 Inr 0.89 Normal 7 Complete Blood Count 03/25/2021 [facility] C entr [address] [place] [address] (315)- - White Blood Count 4.9 10 [...] % Normal 0-0 Laboratory test finding 03/25/2021 [facility] l Centr [address] [place] [address] (315)- - Erythrocyte Sedimentation Rate 35 mm/hr High 0-30 Comprehensive Metabolic Profil 03/25/2021 [facility] [address] [place] [address] (315)- - Glucose, Fasting 83 mg/dL Normal [...] reference range: 2.9-4.4 g/dL 3 The Dimension [place] Total Bi lirubin is not recommended for [...] initial administration of either drug. 6 The [employer] COVID-19 MDx Ass ay is an endpoint [...] sole basis for patient management decisions. The Kahnoodlex MDx Assay is only for use under [...] Little GFR Left ESRD GFR <15 on CONTRACT OFFICER Procedures Date Code Description Status 04/28/2021 65514 Therapeutic Procedure, Each 15 M inutes Completed 04/23/2021 79679 Therapeutic Procedure, Each 15 M inutes Completed 04/21/2021 15607 Therapeutic Procedure, Each 15 M inutes Completed 04/17/2021 02947 Therapeutic Procedure, Each 15 M inutes Completed 04/15/2021 33300 Therapeutic Procedure, Each 15 M inutes Completed 04/10/2021 14262 Physical Therapy Eval - Low Comp lexity Completed 04/07/2021 39278 Arthroplasty "Total Knee" Medial & Lateral W/ Or W/O Patella Resu Completed 03/03/2021 56497 Office/Outpatient Established Lo w MDM 20-29 Min Completed 03/03/202182518 Inject/Drain Joint/Bursa Major C ompleted 02/13/2021 04000 Office/Outpatient Established Mo d MDM 30-39 Min Completed 12/22/2020 71706 Office/Outpatient Established Mo d MDM 30-39 Min Completed 12/22/2020 92315 X-Ray Hip Unilateral With Pelvis 2-3 Views Completed 12/22/202017470 Inject/Drain Joint/Bursa Major C ompleted 11/12/2020 31547 Office/Outpatient Established Lo w MDM 20-29 Min Completed 11/12/2020 34380 X-Ray Knee Complete W/Obliques & Tunnel And/Or [...] gait and mobility Office Visit 11/12/2020 10:15a [place] Yunior Griffin M17.11 Unilateral primary osteoarthritis, right knee Assessments Date Code Description Provider 04/28/2021 Z47.1 Aftercare following joint replac ement surgery rYis Izquierdo, VEGETABLE HANDLER 04/28/2021 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 Yris Izquierdo, VEGETABLE HANDLER 04/23/2021 Z47.1 Aftercare following joint replac ement surgery Carol Lu, VEGETABLE HANDLER 04/23/2021 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 Carol Lu, VEGETABLE HANDLER 04/21/2021 Z47.1 Aftercare following joint replac ement surgery Danamarie Ortolano, VEGETABLE HANDLER 04/21/2021 Z47.1 Aftercare following joint replac ement surgery Zully Villarreal MD 04/21/2021 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 Danamarie Ortolano, VEGETABLE HANDLER 04/21/2021 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 Zully Villarreal MD 04/17/2021 Z47.1 Aftercare following joint replac ement surgery Stella Bergman, [facility] 04/17/2021 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 Stella Bergman, MSPT 04/15/2021 Z47.1 Aftercare following joint replac ement surgery Danamarie Ortolano, VEGETABLE HANDLER 04/15/2021 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 Danamarie Ortolano, VEGETABLE HANDLER 04/10/2021 Z47.1 Aftercare following joint replac ement surgery Stella Bergman, MSPT 04/10/2021 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 Stella Bergman, [facility] 04/07/2021 M17.11 Unilateral primary osteoarthriti s, right [...] Tello, PHolden. Plan of Treatment Future Appointment(s):* 05/05/2021 11:00 am - ADITHYA Cox at Physical Therapy * 05/14/2021 11:00 am - Karlos Gates PTA at Physical Therapy * 05/12/2021 11:00 am - ALEXANDR CoxT at Physical Therapy * 05/07/2021 11:00 am - ALEXANDR CoxT at Physical Therapy * 05/01/2021 10:00 am - Karlos Gates PTA at Physical Therapy Functional Status Description No Information Available Mental Status Description No Information Available Referrals Refer to Dr Reason for Referral Status Appt Date Violeta Gibbs PA-C Physical therapy left knee p er medicare no auth req based on medical necessity, [facility] dept sw. Created [address] [place], [place] [id number] [place] [address] [phone] Brandon Villarreal MD SURGERY NO AUTH REQUIRED FOR TOTAL RT KNEE([id number]) TO SURGERY NT Created [address] [place] [address], [address] [place] [address] [phone]
--- OUTSIDE RECORDS SUMMARY | 2021-05-16 12:08 | CCD | Continuity of Care Document ---
Author Author Yasemin [facility]AN [facility] Organization Unknown Address [address] [place] [address] Phone [phone] Care Team Providers Care Tank Shop Supervisor Name Role Phone Charlie Culp MD AUTM [phone] Ramandeep Purdy PA-C AUTM [phone] Problems Active Problems Provider Date Essential hypertension [...] Advanced Formula Tablets Unknown Calcium 600/Vitamin D3 [id number]-Evgn Tablets Unknown Fluticasone Propionate Nasal [place] 50mcg/Act Suspension 2 sprays each nostril every [...] H/L Range Note Complete Blood Count 04/08/2021 [facility] [address] [place] [address] WBC 9.90 x10E3/uL Normal 4.0-10.5 RBC 3.15 [...] Abs. Lymph. 0.86 x10E3/uL Low 1.0-3.5 Abs. [place]. 0.93 x10E3/uL Normal 0.1-1.0 Abs. Eosin. 0.00 x10E3/uL Low 0.1-0.7 Abs. Baso. 0.03 x10E3/uL Normal 0.0-0.1 Abs. Imm. Gran. 0.04 x10E3/uL Normal 0.0-0.1 Anrbc% 0 % Normal 0 Comprehensive Metabolic Prof 04/08/[address] [address] Glu 107 mg/dL Normal 70-110 1 BUN [...] Normal 6-38 5 Laboratory test finding 04/02/[address] [address] Bretype A POSITIVE Normal Type&Screen 04/02/2021 [facility] [address] [place] [address] Blood Type A POSITIVE Normal Antibody Screen NEGATIVE Normal Laboratory test finding 04/02/[address] [facility] [address] [place] [address] [id number] Rheonix Negative Normal Negative 6 Prothrombin Time/Inr 03/25/2021 [facility] entr [address] [place] [address] (315)- - Prothrombin Time 12.5 seconds Normal 12.7-14.5 Inr 0.89 Normal 7 Complete Blood Count 03/25/2021 [facility] C entr [address] [place] [address] (315)- - White Blood Count 4.9 10 [...] % Normal 0-0 Laboratory test finding 03/25/2021 [facility] [address] [place] [address] (315)- - Erythrocyte Sedimentation Rate 35 mm/hr High 0-30 Comprehensive Metabolic Profil 03/25/2021 [facility] [address] [place] [address] (315)- - Glucose, Fasting 83 mg/dL Normal [...] reference range: 2.9-4.4 g/dL 3 The Dimension [place] Total Bi lirubin is not recommended for [...] initial administration of either drug. 6 The [employer] me [place] [employer] Moon COVID-19 MDx Ass ay is an endpoint [...] sole basis for patient management decisions. The [email or web address] MDx Assay is only for use under [...] Little GFR Left ESRD GFR <15 on LEARNING COORDINATOR Procedures Date Code Description Status 04/23/2021 40367 Therapeutic Procedure, Each 15 M inutes Completed 04/21/2021 06303 Therapeutic Procedure, Each 15 M inutes Completed 04/17/2021 16523 Therapeutic Procedure, Each 15 M inutes Completed 04/15/2021 18211 Therapeutic Procedure, Each 15 M inutes Completed 04/10/2021 58974 Physical Therapy Eval - Low Comp lexity Completed 04/07/2021 65363 Arthroplasty "Total Knee" Medial & Lateral W/ Or W/O Patella Resu Completed 03/03/2021 71719 Office/Outpatient Established Lo w MDM 20-29 Min Completed 03/03/202124910 Inject/Drain Joint/Bursa Major C ompleted 02/13/2021 64392 Office/Outpatient Established Mo d MDM 30-39 Min Completed 12/22/2020 69743 Office/Outpatient Established Mo d MDM 30-39 Min Completed 12/22/2020 13532 X-Ray Hip Unilateral With Pelvis 2-3 Views Completed 12/22/202039612 Inject/Drain Joint/Bursa Major C ompleted 11/12/2020 59815 Office/Outpatient Established Lo w MDM 20-29 Min Completed 11/12/2020 62975 X-Ray Knee Complete W/Obliques & Tunnel And/Or [...] right knee Assessments Date Code Description Provider 04/23/2021 Z47.1 Aftercare following joint replac ement surgery Carol Lu, GERIATRIC PERSONAL CARE AIDE 04/23/2021 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 Carol Lu, GERIATRIC PERSONAL CARE AIDE 04/21/2021 Z47.1 Aftercare following joint replac ement surgery Danamarie Ortolano, GERIATRIC PERSONAL CARE AIDE 04/21/2021 Z47.1 Aftercare following joint replac ement surgery Zully Villarreal MD 04/21/2021 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 Danamarie Ortolano, GERIATRIC PERSONAL CARE AIDE 04/21/2021 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 Zully Villarreal MD 04/17/2021 Z47.1 Aftercare following joint replac ement surgery Stella Bergman, [facility] 04/17/2021 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 Stella Bergman, [facility] 04/15/2021 Z47.1 Aftercare following joint replac ement surgery Danamarie Ortolano, GERIATRIC PERSONAL CARE AIDE 04/15/2021 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 Danamarie Ortolano, GERIATRIC PERSONAL CARE AIDE 04/10/2021 Z47.1 Aftercare following joint replac ement surgery Stella Bergman, [facility] 04/10/2021 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 Stella Bergman, [facility] 04/07/2021 M17.11 Unilateral primary osteoarthriti s, right [...] Tello, P.A. Plan of Treatment Future Appointment(s):* 05/01/2021 10:00 am - Karlos Gates, GERIATRIC PERSONAL CARE AIDE at Physical Therapy Functional Status Description No Information Available Mental Status Description No Information Available Referrals Refer to Dr Reason for Referral Status Appt Date Sai, Violeta Obando PA-C Physical therapy left knee p er medicare no auth req based on medical necessity, patient is going to [facility] [place], passed to pt dept sw. Created [address] [facility] [address] [place] [address] [phone] Brandon Villarreal MD SURGERY NO AUTH REQUIRED FOR TOTAL RT KNEE([id number]) TO SURGERY NT Created [address] [facility], [address] [place] [address] [phone]
--- OUTSIDE RECORDS SUMMARY | 2021-05-16 12:08 | CCD | Continuity of Care Document ---
Author Author Yasemin BYRD [facility] Organization Unknown Address [address] [place] [address] Phone [phone] Care Team Providers Care Water Resource Specialist Name Role Phone Charlie Culp MD AUTM [phone] Ramandeep Purdy PA-C AUTM [phone] Problems Active Problems Provider Date Essential hypertension [...] Advanced Formula Tablets Unknown Calcium 600/Vitamin D3 [id number] Tablets Unknown Fluticasone Propionate Nasal [place] 50mcg/Act Suspension 2 sprays each nostril every [...] H/L Range Note Complete Blood Count 04/08/2021 [facility] [address] [place] [address] WBC 9.90 x10E3/uL Normal 4.0-10.5 RBC 3.15 [...] Abs. Lymph. 0.86 x10E3/uL Low 1.0-3.5 Abs. [place]. 0.93 x10E3/uL Normal 0.1-1.0 Abs. Eosin. 0.00 x10E3/uL Low 0.1-0.7 Abs. Baso. 0.03 x10E3/uL Normal 0.0-0.1 Abs. Imm. Gran. 0.04 x10E3/uL Normal 0.0-0.1 Anrbc% 0 % Normal 0 Comprehensive Metabolic Prof 04/08/[address] [address] Glu 107 mg/dL Normal 70-110 1 BUN [...] Normal 6-38 5 Laboratory test finding 04/02/[address] [address] Bretype A POSITIVE Normal Type&Screen 04/02/2021 [facility] [address] [place] [address] Blood Type A POSITIVE Normal Antibody Screen NEGATIVE Normal Laboratory test finding 04/02/2021 [facility] [address] [place] [address] [id number] Rheonix Negative Normal Negative 6 Prothrombin Time/Inr 03/25/2021 [facility] [address] [place] [address] (315)- - Prothrombin Time 12.5 seconds Normal 12.7-14.5 Inr 0.89 Normal 7 Complete Blood Count 03/25/2021 [facility] C entr [address] [place] [address] (315)- - White Blood Count 4.9 10 [...] % Normal 0-0 Laboratory test finding 03/25/2021 [facility] Cent[facility] [address] [place] [address] (315)- - Erythrocyte Sedimentation Rate 35 mm/hr High 0-30 Comprehensive Metabolic Profil 03/25/2021 [facility] [address] [place] [address] (315)- - Glucose, Fasting 83 mg/dL Normal [...] reference range: 2.9-4.4 g/dL 3 The Dimension [place] Total Bi lirubin is not recommended for [...] initial administration of either drug. 6 The [employer] COVID-19 MDx Ass ay is an endpoint [...] sole basis for patient management decisions. The Sensdatax MDx Assay is only for use under [...] Little GFR Left ESRD GFR <15 on RELOCATION ASSOCIATE Procedures Date Code Description Status 04/28/2021 34445 Therapeutic Procedure, Each 15 M inutes Completed 04/23/2021 88731 Therapeutic Procedure, Each 15 M inutes Completed 04/21/2021 06548 Therapeutic Procedure, Each 15 M inutes Completed 04/17/2021 52010 Therapeutic Procedure, Each 15 M inutes Completed 04/15/2021 60361 Therapeutic Procedure, Each 15 M inutes Completed 04/10/2021 79138 Physical Therapy Eval - Low Comp lexity Completed 04/07/2021 89023 Arthroplasty "Total Knee" Medial & Lateral W/ Or W/O Patella Resu Completed 03/03/2021 85302 Office/Outpatient Established Lo w MDM 20-29 Min Completed 03/03/2021 80011 Inject/Drain Joint/Bursa Major C ompleted 02/13/2021 89373 Office/Outpatient Established Mo d MDM 30-39 Min Completed 12/22/2020 81105 Office/Outpatient Established Mo d MDM 30-39 Min Completed 12/22/2020 58907 X-Ray Hip Unilateral With Pelvis 2-3 Views Completed 12/22/202040290 Inject/Drain Joint/Bursa Major C ompleted 11/12/2020 92661 Office/Outpatient Established Lo w MDM 20-29 Min Completed 11/12/2020 79387 X-Ray Knee Complete W/Obliques & Tunnel And/Or Standing Views Completed Medical Devices Description No Information Available Encounters Type Date Location Provider Dx Diagnosis Office Visit 04/21/2021 8:15a Mickie Villarreal MD Z4 7.1 Aftercare following joint replacement surgery Z96.651 Presence of right artificial knee joint Office Visit 04/01/2021 10:[place] PA-C Z01.818 Encounter for other preprocedural examination M17.11 Unilateral primary osteoarth ritis, right knee Office Visit 03/03/2021 4:[place]p [place] Tello, P.A. M17.12 Unilateral primary osteoarthritis, left knee Office Visit 02/13/2021 9:15a Mickie Villarreal MD M1 7.11 Unilateral primary osteoarthritis, right knee R26.9 Unspecified abnormalities of gait and mobility Office Visit 12/22/2020 2:15p Mickie Villarreal MD M1 7.11 Unilateral primary osteoarthritis, right knee R26.9 Unspecified abnormalities of gait and mobility Office Visit 11/12/2020 10:15a [place] Yunior Griffin M17.11 Unilateral primary osteoarthritis, right knee Assessments Date Code Description Provider 04/28/2021 Z47.1 Aftercare following joint replac ement surgery Yris Izquierdo, SYNTHETIC SOIL BLOCKS PULPER 04/28/2021 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 Yris Izquierdo, SYNTHETIC SOIL BLOCKS PULPER 04/23/2021 Z47.1 Aftercare following joint replac ement surgery Carol Lu, SYNTHETIC SOIL BLOCKS PULPER 04/23/2021 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 Carol Lu, SYNTHETIC SOIL BLOCKS PULPER 04/21/2021 Z47.1 Aftercare following joint replac ement surgery Danamarie Ortolano, SYNTHETIC SOIL BLOCKS PULPER 04/21/2021 Z47.1 Aftercare following joint replac ement surgery Zully Villarreal MD 04/21/2021 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 Danamarie Ortolano, SYNTHETIC SOIL BLOCKS PULPER 04/21/2021 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 Zully Villarreal MD 04/17/2021 Z47.1 Aftercare following joint replac ement surgery [facility] Bergman, [facility] 04/17/2021 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 Stella Bergman, [facility] 04/15/2021 Z47.1 Aftercare following joint replac ement surgery Danamarie Ortolano, SYNTHETIC SOIL BLOCKS PULPER 04/15/2021 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 Danamarie Ortolano, SYNTHETIC SOIL BLOCKS PULPER 04/10/2021 Z47.1 Aftercare following joint replac ement surgery Stella Bergman, MSPT 04/10/2021 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 Stella Bergman, [facility] 04/07/2021 M17.11 Unilateral primary [...] [place], passed to pt dept sw. Created [address] [place] [address] [address] [place] [address] [phone] Brandon Villarreal MD SURGERY NO AUTH REQUIRED FOR TOTAL RT KNEE([id number]) TO SURGERY NT Created [facility], [address] [place] [address] [phone]
--- OUTSIDE RECORDS SUMMARY | 2021-05-16 12:08 | CCD | Continuity of Care Document ---
Author Author Yasemin BYRD [facility] Organization Unknown Address [address] [place] [address] Phone [phone] Care Team Providers Care Senior Account Manager Name Role Phone Charlie Culp MD AUTM [phone] Ramandeep Purdy PA-C AUTM [phone] Problems Active Problems Provider Date Essential hypertension [...] Advanced Formula Tablets Unknown Calcium 600/Vitamin D3 [id number]-Ivym Tablets Unknown Fluticasone Propionate Nasal [place] 50mcg/Act Suspension 2 sprays each nostril every [...] H/L Range Note Complete Blood Count 04/08/2021 [facility] [address] [place] [address] WBC 9.90 x10E3/uL Normal 4.0-10.5 RBC 3.15 [...] Abs. Lymph. 0.86 x10E3/uL Low 1.0-3.5 Abs. [place]. 0.93 x10E3/uL Normal 0.1-1.0 Abs. Eosin. 0.00 x10E3/uL Low 0.1-0.7 Abs. Baso. 0.03 x10E3/uL Normal 0.0-0.1 Abs. Imm. Gran. 0.04 x10E3/uL Normal 0.0-0.1 Anrbc% 0 % Normal 0 Comprehensive Metabolic Prof 04/08/[address] [address] Glu 107 mg/dL Normal 70-110 1 BUN [...] Normal 6-38 5 Laboratory test finding 04/02/[address] [address] Bretype A POSITIVE Normal Type&Screen 04/02/2021 [facility] [address] [place] [address] Blood Type A POSITIVE Normal Antibody Screen NEGATIVE Normal Laboratory test finding 04/02/2021 [facility] [address] [place] [address] [id number] Rheonix Negative Normal Negative 6 Prothrombin Time/Inr 03/25/2021 [facility] [address] [place] [address] (315)- - Prothrombin Time 12.5 seconds Normal 12.7-14.5 Inr 0.89 Normal 7 Complete Blood Count 03/25/2021 [facility] C entr [address] [place] [address] (315)- - White Blood Count 4.9 10 [...] % Normal 0-0 Laboratory test finding 03/25/2021 [facility] l Centr [address] [place] [address] (315)- - Erythrocyte Sedimentation Rate 35 mm/hr High 0-30 Comprehensive Metabolic Profil 03/25/2021 [facility] [address] [place] [address] (315)- - Glucose, Fasting 83 mg/dL Normal [...] reference range: 2.9-4.4 g/dL 3 The Dimension [place] Total Bi lirubin is not recommended for [...] initial administration of either drug. 6 The [employer] COVID-19 MDx Ass ay is an endpoint [...] sole basis for patient management decisions. 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 HAND Procedures Date Code Description Status 04/17/2021 95107 Therapeutic Procedure, Each 15 M inutes Completed 04/15/2021 53408 Therapeutic Procedure, Each 15 M inutes Completed 04/10/2021 13567 Physical Therapy Eval - Low Comp lexity Completed 04/07/2021 56580 Arthroplasty "Total Knee" Medial & Lateral W/ Or W/O Patella Resu Completed 03/03/2021 12232 Office/Outpatient Established Lo w MDM 20-29 Min Completed 03/03/202158375 Inject/Drain Joint/Bursa Major C ompleted 02/13/2021 69959 Office/Outpatient Established Mo d MDM 30-39 Min Completed 12/22/2020 72246 Office/Outpatient Established Mo d MDM 30-39 Min Completed 12/22/2020 15044 X-Ray Hip Unilateral With Pelvis 2-3 Views Completed 12/22/202099284 Inject/Drain Joint/Bursa Major C ompleted 11/12/2020 15235 Office/Outpatient Established Lo w MDM 20-29 Min Completed 11/12/2020 27075 X-Ray Knee Complete W/Obliques & Tunnel And/Or Standing Views Completed Medical Devices Description No Information Available Encounters Type Date Location Provider Dx Diagnosis Office Visit 04/21/2021 8:15a Mickie Villarreal MD Z4 7.1 Aftercare following joint replacement surgery Z96.651 Presence of right artificial knee joint Office Visit 04/01/2021 10:00a [place] PA-C Z01.818 Encounter for other preprocedural [...] following joint replac ement surgery Danamarie Ortolano, LEGAL SUPPORT SPECIALIST 04/15/2021 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 Danamarie Ortolano, LEGAL SUPPORT SPECIALIST 04/10/2021 Z47.1 Aftercare following joint replac ement surgery Stella Bergman, [facility] 04/10/2021 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 Stella Bergman, [facility] 04/07/2021 M17.11 Unilateral primary osteoarthriti s, right [...] Future Appointment(s):* 05/01/2021 10:00 am - Karlos Byrd, LEGAL SUPPORT SPECIALIST at Physical Therapy * 04/28/2021 10:00 am - Karlos Byrd, LEGAL SUPPORT SPECIALIST at Physical Therapy * 04/23/2021 1:30 pm - Carol Lu, LEGAL SUPPORT SPECIALIST at Physical Therapy Functional Status Description No Information Available Mental Status Description No Information Available Referrals Refer to Dr Reason for Referral Status Appt Date Violeta Gibbs, SIGRID Physical therapy left knee p er medicare no auth req based on medical necessity, patient is going to [facility] [place], passed to pt dept sw. Created [address] [place], [place] [address] [place] [address] [phone] Brandon Villarreal MD SURGERY NO AUTH REQUIRED FOR TOTAL RT KNEE([id number]) TO SURGERY NT Created [address] [place] [address], [address] [place] [address] [phone]
--- OUTSIDE RECORDS SUMMARY | 2021-05-16 12:09 | CCD | Continuity of Care Document ---
Author Author [facility] er Organization [facility] er Address [address] [place] [address] Phone Support Name Relationship Address Phone MD NATALIYA GARCIA PRS [address] [place] [address] [place] [address] [place] [address] Health Concerns Health concerns may be documented in an alternate section Allergies, Adverse Reactions, Alerts Allergen Type Severity Reaction Last Updated Verified Status SULFA Allergy Unknown April 02, 2021 Yes Ac tive Penicillins Allergy Unkn own ANAPHYLAXIS April 02, 2021 Yes Active losartan Allergy Unknown April 02, 2021 Yes Active alendronate sodium Allergy Unknown April 02, 2021 Yes Active moxifloxacin Allergy Unk nown ANAPHYLAXIS April 02, 2021 Yes Active Social History Smoking Status Status Start Date End Da te Date of Observation Observation Status Observation Response Hussein e of Response Drinks alcohol daily N O ct2020 6:59am Recreational drug use N April 02, 2021 6:59am Additional Data Assigned Sex Female Problems Active Problems Medical Problem Onset Date Status Hypertension Active Dyslipidemia Active Allergic rhinitis Acti ve GERD (gastroesophageal reflux disease) Active Medications Medication Status Dose Units Route Directions Qty Days Start Date End Date Instructions AMLODIPINE BESYLATE (AMLODIPINE5 MG) 5 MG TABLET Active 5 MG PO DA LASHAY for BLOOD PRESSURE ASPIRIN (ERMA EOD835 M1) 325 MG TABLET Active 325 MG PO TWICE DAILY for DVT prophylaxis April 08, 2021 9:00am ATORVASTATIN (UCGSILXFYGJX43 MG) 40 MG TABLET Active 40 MG PO A T BEDTIME for CHOLESTEROL FLUTICASONE PROPIONATE (FLONASE AL50 MCG /ACT) 9.9 ML SPRAY.SUSP Active 2 SPRAY NASAL DAILY for ALLERGIES FOLIC ACID* (FOLVITE1 MG) 1 MG TABLET Active 400 MG PO DAILY for SUPPLEMENT IRBESARTAN/HYDROCHLOROTHIAZIDE (IRBESAR/ HCTZ1 TA1) 300 MG/12.5 MG TAB Active 1 TAB PO DAILY for BLOOD PRESSURE MELOXICAM (GBCKSUVLU16 MG) 15 MG TABLET Active 15 MG PO D AILY as needed for PAIN, ARTHRITIS OMEPRAZOLE (MQTOTANZGK41 MG) 20 MG CAPSULE. Active 20 MG PO D AILY as needed for GERD ASPIRIN (ERMA ASPIRIN E81 MG) 81 MG TABLET. Discontinued 81 MG PO EVERY OTHER DAY for HEART HEALTH April 08, 2021 8:59am Immunizations No immunization information available Medical Equipment Device Date Implanted De vice Details Uncoated knee femur prosthesis, metallic April 07, 2021 SHAHRAM: [id number] Issuing Agency: [facility] Device Id: [id number] Expiration Date: 2030-07-27 Lot Number: [id number] Tibial insert April 07, 2021 SHAHRAM: [id number] Issuing Agency: [facility] Device Id: [id number] Expiration Date: 2025-06-26 Lot Number: [id number] Polyethylene patella prosthesis Octo 2020 SHAHRAM: [id number] Issuing Agency: [facility] Device Id: [id number] Expiration Date: 2025-04-26 Lot Number: [id number] Uncoated knee tibia prosthesis, metallic April 07, 2021 SHAHRAM: [id number] Issuing Agency: [facility] Device Id: [id number] Expiration Date: 2030-12-24 Lot Number: [id number] Procedures Procedure Date Performed Status Total replacement of right knee joint April 07, 2021 completed *Complete Blood Count April 08, 2021 completed Comprehensive Metabolic Profil Octob er 2020 completed KNEE LIMITED April 07, 2021 completed Relevant Diagnostic Tests and/or Laboratory Data Laboratory Results Test Date/Time Result Interpretation Reference Range Result Comment Performing Site Glucose Level April 08, 2021 4:10am 107 70-110 Patients taking Sulfasalazine may have falsely depressedGlucose levels. Patients taking Sulfapyridine may havefalsely elevated Glucose levels. Patients should be drawnfor Glucose before the initial administration of eitherdrug. Main Laboratory Blood Urea Nitrogen April 08 4:10am 20 7-23 Main Laboratory Creatinine April 08, 2021 4:10am 0.992 0.500-1.300 Main Laboratory Estimated GFR/1.73 m2 April 08, 2021 4:10am 58 Main Laboratory Chloride Level April 08, 2021 4:10am 106 99-110 Main Laboratory Sodium Level April 08, 2021 4:10am 139 136-147 Main Laboratory Potassium Level April 08, 2021 4:10am 4.7 3.5-5.1 Main Laboratory Serum Bicarbonate April 08, 2021 4:10a m 24 20-33 Main Laboratory Anion Gap April 08, 2021 4:10am 13.7 10.0-20.0 Main Laboratory Calcium Level April 08, 2021 4:10am 9.1 8.3-10.7 Main Laboratory Alkaline Phosphatase April 08 021 4:10am 65 45-117 Main Laboratory Total Protein April 08, 2021 4:10am 5.8 6.0-7.8 Main Laboratory Albumin April 08, 2021 4:10am 3.3 3.5-5.0 ESRD Dialysis patient Albumin reference range: 2.9-4.4 g/dL Main Laboratory Globulin April 08, 2021 4:10am 2.5 2.3-3.5 Main Laboratory Albumin/Globulin Ratio April 08, 2021 4:10am 1.3 1.0-2.5 Main Laboratory Total Bilirubin April 08, 2021 4:10am 0.4 0.1-1.1 The Dimension [place] Total Bilirubin is not recommended forpatients undergoing treatment with eltrombopag (Promacta)due to the potential for falsely elevated results. Main Laboratory Alanine Aminotransferase (ALT/SGPT) April 08, 2021 4:10am 20 6-54 Patients taking Sulfasalazine and/or Sul fapyridine may havefalsely depressed ALT levels. Patients should be drawn forALT before the initial administration of either drug. Main Laboratory Aspartate Amino Transf (AST/SGOT) Oc banner 2020 4:10am 16 6-38 Patients taking Sulfasalazine and/or Sulfapyridine may havefalsely depressed AST levels. Patients should be drawn forAST before the initial administration of either drug. Main Laboratory White Blood Count April 08, 2021 4:10a m 9.90 4.0-10.5 Main Laboratory Red Blood Count April 08, 2021 4:10am 3.15 4.20-5.40 Main Laboratory Hemoglobin April 08, 2021 4:10am 9.8 12.0-16.0 Main Laboratory Hematocrit April 08, 2021 4:10am 29.2 37.0-47.0 Main Laboratory Mean Corpuscular Volume March 4:10am 92.7 81.0-99.0 Main Laboratory Mean Corpuscular Hemoglobin April 08, 2021 4:10am 31.1 27.0-31.0 Main Laboratory Mean Corpuscular Hemoglobin Concent April 08, 2021 4:10am 33.6 32.7-35.6 Main Laboratory Red Cell Distribution Width April 08, 2021 4:10am 12.9 11.5-14.0 Main Laboratory Platelet Count April 08, 2021 4:10am 300 150-450 Main Laboratory Mean Platelet Volume April 08 4:10am 9.9 6.9-9.5 Main Laboratory Neutrophils (%) (Auto) April 08, 2021 4:10am 81.2 34-64 Main Laboratory Lymphocytes (%) (Auto) April 08, 2021 4:10am 8.7 25-45 Main Laboratory Monocytes (%) (Auto) April 08 4:10am 9.4 1.7-10.6 Main Laboratory Eosinophils (%) (Auto) April 08, 2021 4:10am 0 0.4-7.0 Main Laboratory Basophils (%) (Auto) April 08 4:10am 0.3 0.1-2.0 Main Laboratory Immature Granulocyte % (Auto) Octobe r 2020 4:10am 0.4 0.1-2.0 Main Laboratory Absolute Neutrophils (auto) April 08, 2021 4:10am 8.04 1.2-7.6 Main Laboratory Absolute Lymphocytes (auto) April 08, 2021 4:10am 0.86 1.0-3.5 Main Laboratory Absolute Monocytes (auto) April 082020 4:10am 0.93 0.1-1.0 Main Laboratory Absolute Eosinophils (auto) April 08, 2021 4:10am 0.00 0.1-0.7 Main Laboratory Absolute Basophils (auto) April 082020 4:10am 0.03 0.0-0.1 Main Laboratory Absolute Immature Granulocyte (auto April 08, 2021 4:10am 0.04 0.0-0.1 Main Laboratory Nucleated Red Blood Cells % (auto) O ct2020 4:10am 0 0 Main Laboratory Vital Signs Vital Reading Result Ref erence Range Collection Date/Time BP Systolic 128 mm[Hg] April 08, 2021 8:58am BP Diastolic 59 mm[Hg] April 08, 2021 8:58am Body Temperature 97.8 [degF] April 08, 2021 6:08am Respiratory rate 16 /min April 08, 2021 6:08am Heart Rate 69 /min April 08, 2021 6:08am Oxygen saturation by Pulse oximetry 92 % April 08, 2021 6:08am Height 64 [in_i] April 02, 2021 8:51am Height 162.56 cm April 02, 2021 8:51am Weight 153.31 [lb_av] April 02, 2021 8:51am Weight 69.54 kg April 02, 2021 8:51am BMI (Body Mass Index) 26.3 kg/m2 April 02, 2021 8:51am Advance Directives Advance Directive Response Recorded Date/Time Code Status Full code Oc tober 2020 9:24am Advance Directives Health Care Proxy April 08, 2021 10:03am Insurance Providers Guarantor OSCAR DYSON Address [address] [place] [address] Contact Info. Home Phone: Payer Policy Id Coverage Id Subscriber's Name Subscriber Id Effective Date Expiration Date MEDICARE [id number] OSCAR DYSON Encounters Encounter Location(s) Ar rival/Admit Date Discharge/Depart Date Provider(s) Departed [facility] April 07, 2021 12:45am March 272020 9:23am NATALIYA GARCIA MD Recent Diagnosis Onset Date GERD (gastroesophageal reflux disease) Functional Status No functional status information available Mental Status No mental status information available Assessments Diagnosis Onset Date Res olution Status GERD (gastroesophageal reflux disease) Active Plan of Treatment Plan of treatment may be documented in an alternate section Goals Goals may be documented in an alternate section
--- OUTSIDE RECORDS SUMMARY | 2021-05-16 12:09 | CCD | Continuity of Care Document ---
Author Author Yasemin BERGMAN MSPT Organization Unknown Address [address] [place] [address] Phone [phone] Care Team Providers Care Entry Level Mechanical Engineer Name Role Phone Charlie Culp MD AUTM [phone] Ramandeep Purdy PA-C AUTM [phone] Problems Active Problems Provider Date Essential hypertension [...] Advanced Formula Tablets Unknown Calcium 600/Vitamin D3 125-873pv-Xcam Tablets Unknown Fluticasone Propionate Nasal [place] 50mcg/Act Suspension 2 sprays each nostril every [...] Range Note Complete Blood Count 04/08/2021 [facility] [address] [place] [address] WBC 9.90 x10E3/uL Normal 4.0-10.5 RBC 3.15 [...] Abs. Lymph. 0.86 x10E3/uL Low 1.0-3.5 Abs. [place]. 0.93 x10E3/uL Normal 0.1-1.0 Abs. Eosin. 0.00 x10E3/uL Low 0.1-0.7 Abs. Baso. 0.03 x10E3/uL Normal 0.0-0.1 Abs. Imm. Gran. 0.04 x10E3/uL Normal 0.0-0.1 Anrbc% 0 % Normal 0 Comprehensive Metabolic Prof 04/08/[address] [address] Glu 107 mg/dL Normal 70-110 1 BUN [...] Normal 6-38 5 Laboratory test finding 04/02/2021 [facility] [address] [place] [address] Bretype A POSITIVE Normal Type&Screen 04/02/2021 [facility] [address] [place] [address] Blood Type A POSITIVE Normal Antibody Screen NEGATIVE Normal Laboratory test finding 04/02/[address] [address] Coiggd07 Rheonix Negative Normal Negative 6 Prothrombin Time/Inr 03/25/2021 [facility] entr [address] [place] [address] (315)- - Prothrombin Time 12.5 seconds Normal 12.7-14.5 Inr 0.89 Normal 7 Complete Blood Count 03/25/2021 [facility] entr [address] [place] [address] (315)- - White Blood Count 4.9 10 [...] % Normal 0-0 Laboratory test finding 03/25/2021 [facility] l Centr [address] [place] [address] (315)- - Erythrocyte Sedimentation Rate 35 mm/hr High 0-30 Comprehensive Metabolic Profil 03/25/2021 [place] [address] [place] [address] (315)- - Glucose, Fasting 83 mg/dL Normal [...] reference range: 2.9-4.4 g/dL 3 The Dimension [place] Total Bi lirubin is not recommended for [...] initial administration of either drug. 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 Procedures Date Code Description Status 04/07/2021 42910 Arthroplasty "Total Knee" Medial & Lateral W/ Or W/O Patella Resu Completed 03/03/2021 78832 Office/Outpatient Established Lo w MDM 20-29 Min Completed 03/03/202141769 Inject/Drain Joint/Bursa Major C ompleted 02/13/2021 37735 Office/Outpatient Established Mo d MDM 30-39 Min Completed 12/22/2020 61851 Office/Outpatient Established Mo d MDM 30-39 Min Completed 12/22/2020 77875 X-Ray Hip Unilateral With Pelvis 2-3 Views Completed 12/22/202041888 Inject/Drain Joint/Bursa Major C ompleted 11/12/2020 81836 Office/Outpatient Established Lo w MDM 20-29 Min Completed 11/12/2020 45388 X-Ray Knee Complete W/Obliques & Tunnel And/Or Standing Views Completed Medical Devices Description No Information Available Encounters Type Date Location Provider Dx Diagnosis Office Visit 04/01/2021 10:[place]a [place] PA-C Z01.818 Encounter for other preprocedural [...] gait and mobility Office Visit 11/12/2020 10:15a [place] Tello, P.A. M17.11 Unilateral primary osteoarthritis, right knee Assessments Date Code Description Provider 04/07/2021 M17.11 Unilateral primary osteoarthriti s, right knee Zully Villarreal MD 04/01/2021 Z01.818 Encounter for other preprocedura l lyn Gibbs PA-C 04/01/2021 M17.11 Unilateral primary osteoarthriti s, right knee Violeta Gibbs PA-C 03/03/2021 M17.12 Unilateral primary osteoarthriti s, left knee Santosh Tello, Yunior 02/13/2021 M17.11 Unilateral primary osteoarthriti s, right knee Zully Villarreal MD 02/13/2021 R26.9 Unspecified abnormalities of gai t and mobility Zully Villarreal MD 12/22/2020 M17.11 Unilateral primary osteoarthriti s, right knee Zully Villarreal MD 12/22/2020 R26.9 Unspecified abnormalities of gai t and mobility Zully Villarreal MD 11/12/2020 M17.11 Unilateral primary osteoarthriti s, right knee Santosh Tello, PHolden. Plan of Treatment Future Appointment(s):* 04/17/2021 10:00 am - Stella Bergman MSPT at Physical Therapy * 04/15/2021 11:00 am - Karlos Gates PTA at Physical Therapy * 04/21/2021 8:15 am - Zully Villarreal MD at [place] Functional Status Description No Information Available Mental Status Description No Information Available Referrals Refer to Dr Reason for Referral Status Appt Date Violeta Gibbs PA-C Physical therapy left knee p er medicare no auth req based on medical necessity, patient is going to [facility], passed to pt dept sw. Created [facility] [address] [place] [address] [phone] Brandon Villarreal MD SURGERY NO AUTH REQUIRED FOR TOTAL RT KNEE([id number]) TO SURGERY NT Created [facility], [address] [place] [address] [phone]
--- OUTSIDE RECORDS SUMMARY | 2021-05-16 12:09 | CCD | Continuity of Care Document ---
Author Author Yasemin VILLARREAL MD Organization Unknown Address [address] [place] [address], [facility] [address] [place] [address] Phone [phone] Care Team Providers Care Health Outcomes Liaison Name Role Phone Charlie Culp MD AUTM [phone] Ramandeep Purdy PA-C AUTM [phone] Problems Active Problems Provider Date Essential hypertension [...] Advanced Formula Tablets Unknown Calcium 600/Vitamin D3 383-847op-Deli Tablets Unknown Fluticasone Propionate Nasal [place] 50mcg/Act Suspension 2 sprays each nostril every [...] H/L Range Note Complete Blood Count [facility] [address] [place] [address] WBC 9.90 x10E3/uL Normal 4.0-10.5 RBC 3.15 [...] Abs. Lymph. 0.86 x10E3/uL Low 1.0-3.5 Abs. [place]. 0.93 x10E3/uL Normal 0.1-1.0 Abs. Eosin. 0.00 x10E3/uL Low 0.1-0.7 Abs. Baso. 0.03 x10E3/uL Normal 0.0-0.1 Abs. Imm. Gran. 0.04 x10E3/uL Normal 0.0-0.1 Anrbc% 0 % Normal 0 Comprehensive Metabolic Prof 04/08/[address] [address] Glu 107 mg/dL Normal 70-110 1 BUN [...] Normal 6-38 5 Laboratory test finding 04/02/2021 [facility] [address] [place] [address] Bretype A POSITIVE Normal Type&Screen 04/02/2021 [facility] [address] [place] [address] Blood Type A POSITIVE Normal Antibody Screen NEGATIVE Normal Laboratory test finding 04/02/2021 [facility] [address] [place] [address] [id number] Rheonix Negative Normal Negative 6 Prothrombin Time/Inr 03/25/2021 [facility] entr [address] [place] [address] (315)- - Prothrombin Time 12.5 seconds Normal 12.7-14.5 Inr 0.89 Normal 7 Complete Blood Count 03/25/2021 [facility] entr [address] [place] [address] (315)- - White Blood Count 4.9 10 [...] % Normal 0-0 Laboratory test finding 03/25/2021 [facility] l Centr [address] [place] [address] (315)- - Erythrocyte Sedimentation Rate 35 mm/hr High 0-30 Comprehensive Metabolic Profil 03/25/2021 [place] [address] [place] [address] (315)- - Glucose, Fasting 83 mg/dL Normal [...] reference range: 2.9-4.4 g/dL 3 The Dimension [place] Total Bi lirubin is not recommended for [...] initial administration of either drug. 6 The [employer] COVID-19 MDx Ass ay is an endpoint [...] Little GFR Left ESRD GFR <15 on CANDLE [employer]KER Procedures Date Code Description Status 03/03/2021 29626 Office/Outpatient Established Lo w MDM 20-29 Min Completed 03/03/202109321 Inject/Drain Joint/Bursa Major C ompleted 02/13/2021 15396 Office/Outpatient Established Mo d MDM 30-39 Min Completed 12/22/2020 56364 Office/Outpatient Established Mo d MDM 30-39 Min Completed 12/22/2020 24726 X-Ray Hip Unilateral With Pelvis 2-3 Views Completed 12/22/202038925 Inject/Drain Joint/Bursa Major C ompleted 11/12/2020 81807 Office/Outpatient Established Lo w MDM 20-29 Min Completed 11/12/2020 51333 X-Ray Knee Complete W/Obliques & Tunnel And/Or Standing Views Completed Medical Devices Description No Information Available Encounters Type Date Location Provider Dx Diagnosis Office Visit 04/01/2021 10:00a [place] PA-C Z01.818 Encounter for other preprocedural examination M17.11 Unilateral primary osteoarth ritis, right knee Office Visit 03/03/2021 4:45p [place] Tello, P.A. M17.12 Unilateral primary osteoarthritis, left knee Office Visit 02/13/2021 9:15a Mickie Villarreal MD M1 7.11 Unilateral primary osteoarthritis, right knee R26.9 Unspecified abnormalities of gait and mobility Office Visit 12/22/2020 2:15p [place] Villarreal MD M1 7.11 Unilateral primary osteoarthritis, right knee R26.9 Unspecified abnormalities of gait and mobility Office Visit 11/12/2020 10:15a [place]ello, P.A. M17.11 Unilateral primary osteoarthritis, right knee Assessments Date Code Description Provider 04/01/2021 Z01.818 Encounter for other preprocedura l examination Violeta Gibbs PA-C 04/01/2021 M17.11 Unilateral primary osteoarthriti s, right knee Violeta Gibbs PA-C 03/03/2021 M17.12 Unilateral primary osteoarthriti s, left knee Wellington GriffinA. 02/13/2021 M17.11 Unilateral primary osteoarthriti s, right knee Zully Villarreal MD 02/13/2021 R26.9 Unspecified abnormalities of gai t and mobility Zully Villarreal MD 12/22/2020 M17.11 Unilateral primary osteoarthriti s, right knee Zully Villarreal MD 12/22/2020 R26.9 Unspecified abnormalities of gai t and mobility Zully Villarreal MD 11/12/2020 M17.11 Unilateral primary osteoarthriti s, right knee Santosh Tello, PDeysi Plan of Treatment Future Appointment(s):* 04/10/2021 11:30 am - ADITHYA Cox at Physical Therapy * 04/21/2021 8:15 am - Zully Villarreal MD at [place] 03/03/2021 - Santosh Tello, PShaunAShaun* M17.12 Unilateral primary osteoarthritis, left knee* Follow up:* f/u prn Functional Status Description No Information Available Mental Status Description No Information Available Referrals Refer to Dr Reason for Referral Status Appt Date Violeta Gibbs, SIGRID Physical therapy left knee p er medicare no auth req based on medical necessity, patient is going to [facility], passed to pt dept sw. Created [address] [place], [place] [address] [place] [address] [phone] Brandon Villarreal MD SURGERY NO AUTH REQUIRED FOR TOTAL RT KNEE([id number]) TO SURGERY NT Created [address] [place] [address], [address] [place] [address] [phone]
--- OUTSIDE RECORDS SUMMARY | 2021-05-16 12:09 | CCD | Continuity of Care Document ---
Author Author Yasemin BERGMAN MSPT Organization Unknown Address [address] [place] [address] Phone [phone] Care Team Providers Care Cord Cutter Name Role Phone Charlie Culp MD AUTM [phone] Ramandeep Purdy PA-C AUTM [phone] Problems Active Problems Provider Date Essential hypertension [...] Advanced Formula Tablets Unknown Calcium 600/Vitamin D3 031-714io-Oikz Tablets Unknown Fluticasone Propionate Nasal [place] 50mcg/Act Suspension 2 sprays each nostril every [...] H/L Range Note Complete Blood Count 04/08/2021 [facility] [address] [place] [address] WBC 9.90 x10E3/uL Normal 4.0-10.5 RBC 3.15 [...] Abs. Lymph. 0.86 x10E3/uL Low 1.0-3.5 Abs. [place]. 0.93 x10E3/uL Normal 0.1-1.0 Abs. Eosin. 0.00 x10E3/uL Low 0.1-0.7 Abs. Baso. 0.03 x10E3/uL Normal 0.0-0.1 Abs. Imm. Gran. 0.04 x10E3/uL Normal 0.0-0.1 Anrbc% 0 % Normal 0 Comprehensive Metabolic Prof 04/08/[address] [address] Glu 107 mg/dL Normal 70-110 1 BUN [...] Normal 6-38 5 Laboratory test finding 04/02/2021 [facility] [address] [place] [address] Bretype A POSITIVE Normal Type&Screen 04/02/2021 [facility] [address] [place] [address] Blood Type A POSITIVE Normal Antibody Screen NEGATIVE Normal Laboratory test finding 04/02/[address] [address] Botijp48 Rheonix Negative Normal Negative 6 Prothrombin Time/Inr 03/25/2021 [facility] entr [address] [place] [address] (315)- - Prothrombin Time 12.5 seconds Normal 12.7-14.5 Inr 0.89 Normal 7 Complete Blood Count 03/25/2021 [facility] entr [address] [place] [address] (315)- - White Blood Count 4.9 10 [...] % Normal 0-0 Laboratory test finding 03/25/2021 [facility] l Centr [address] [place] [address] (315)- - Erythrocyte Sedimentation Rate 35 mm/hr High 0-30 Comprehensive Metabolic Profil 03/25/2021 [place] [address] [place] [address] (315)- - Glucose, Fasting 83 mg/dL Normal [...] reference range: 2.9-4.4 g/dL 3 The Dimension [place] Total Bi lirubin is not recommended for [...] initial administration of either drug. 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 Procedures Date Code Description Status 04/07/2021 89304 Arthroplasty "Total Knee" Medial & Lateral W/ Or W/O Patella Resu Completed 03/03/2021 98269 Office/Outpatient Established Lo w MDM 20-29 Min Completed 03/03/202135530 Inject/Drain Joint/Bursa Major C ompleted 02/13/2021 36914 Office/Outpatient Established Mo d MDM 30-39 Min Completed 12/22/2020 15723 Office/Outpatient Established Mo d MDM 30-39 Min Completed 12/22/2020 23063 X-Ray Hip Unilateral With Pelvis 2-3 Views Completed 12/22/202065678 Inject/Drain Joint/Bursa Major C ompleted 11/12/2020 82538 Office/Outpatient Established Lo w MDM 20-29 Min Completed 11/12/2020 61022 X-Ray Knee Complete W/Obliques & Tunnel And/Or Standing Views Completed Medical Devices Description No Information Available Encounters Type Date Location Provider Dx Diagnosis Office Visit 04/01/2021 10:00a [place] Gibbs PA-C Z01.818 Encounter for other preprocedural [...] gait and mobility Office Visit 11/12/2020 10:15a [place] Tello, P.A. M17.11 Unilateral primary osteoarthritis, right [...] 8:15 am - Zully Villarreal MD at [place] Functional Status Description No Information Available Mental Status Description No Information Available Referrals Refer to Dr Reason for Referral Status Appt Date Violeta Gibbs PA-C Physical therapy left knee p er medicare no auth req based on medical necessity, patient is going to [facility], passed to pt dept sw. Created [facility] [address] [place] [address] [phone] Brandon Villarreal MD SURGERY NO AUTH REQUIRED FOR TOTAL RT KNEE([id number]) TO SURGERY NT Created [facility], [address] [place] [address] [phone]
--- OUTSIDE RECORDS SUMMARY | 2021-05-16 12:09 | CCD | Continuity of Care Document ---
Author Author Yasemin VILLARREAL MD Organization Unknown Address [address] [place] [address], [facility] [address] [place] [address] Phone [phone] Care Team Providers Care Liaison Officer Name Role Phone Charlie Culp MD AUTM [phone] Ramandeep Purdy PA-C AUTM [phone] Problems Active Problems Provider Date Essential hypertension [...] Advanced Formula Tablets Unknown Calcium 600/Vitamin D3 [id number]-Gvve Tablets Unknown Fluticasone Propionate Nasal [place] 50mcg/Act Suspension 2 sprays each nostril every [...] H/L Range Note Complete [facility] [address] [place] [address] WBC 9.90 x10E3/uL Normal 4.0-10.5 RBC 3.15 [...] Abs. Lymph. 0.86 x10E3/uL Low 1.0-3.5 Abs. Bryan. 0.93 x10E3/uL Normal 0.1-1.0 Abs. Eosin. 0.00 x10E3/uL Low 0.1-0.7 Abs. Baso. 0.03 x10E3/uL Normal 0.0-0.1 Abs. Imm. Gran. 0.04 x10E3/uL Normal 0.0-0.1 Anrbc% 0 % Normal 0 Comprehensive Metabolic Prof 04/08/[address] [address] Glu 107 mg/dL Normal 70-110 1 BUN [...] Normal 6-38 5 Laboratory test finding 04/02/2021 [facility] [address] [place] [address] Bretype A POSITIVE Normal Type&Screen 04/02/2021 [facility] [address] [place] [address] Blood Type A POSITIVE Normal Antibody Screen NEGATIVE Normal Laboratory test finding 04/02/2021 [facility] [address] [place] [address] [id number] Rheonix Negative Normal Negative 6 Prothrombin Time/Inr 03/25/2021 [facility] entr [address] [place] [address] (315)- - Prothrombin Time 12.5 seconds Normal 12.7-14.5 Inr 0.89 Normal 7 Complete Blood Count 03/25/2021 [facility] entr [address] [place] [address] (315)- - White Blood Count 4.9 10 [...] % Normal 0-0 Laboratory test finding 03/25/2021 [facility] [address] [place] [address] (315)- - Erythrocyte Sedimentation Rate 35 mm/hr High 0-30 Comprehensive Metabolic Profil 03/25/2021 [facility] [place] [id number] [place] [address] (315)- - Glucose, Fasting 83 mg/dL Normal [...] reference range: 2.9-4.4 g/dL 3 The Dimension [employer] Total Bi lirubin is not recommended for [...] initial administration of either drug. 6 The [email or web address] COVID-19 MDx Ass ay is an endpoint [...] Little GFR Left ESRD GFR <15 on PLATE [employer] Procedures Date Code Description Status 04/07/2021 44521 Arthroplasty "Total Knee" Medial & Lateral W/ Or W/O Patella Resu Completed 03/03/2021 26870 Office/Outpatient Established Lo w MDM 20-29 Min Completed 03/03/202171117 Inject/Drain Joint/Bursa Major C ompleted 02/13/2021 38635 Office/Outpatient Established Mo d MDM 30-39 Min Completed 12/22/2020 43478 Office/Outpatient Established Mo d MDM 30-39 Min Completed 12/22/2020 09045 X-Ray Hip Unilateral With Pelvis 2-3 Views Completed 12/22/202047850 Inject/Drain Joint/Bursa Major C ompleted 11/12/2020 48153 Office/Outpatient Established Lo w MDM 20-29 Min Completed 11/12/2020 59164 X-Ray Knee Complete W/Obliques & Tunnel And/Or Standing Views Completed Medical Devices Description No Information Available Encounters Type Date Location Provider Dx Diagnosis Office Visit 04/01/2021 10:00a [facility] PA-C Z01.818 Encounter for other preprocedural examination M17.11 Unilateral primary osteoarth ritis, right knee Office Visit 03/03/2021 4:45p [place] Tello, P.A. M17.12 Unilateral primary osteoarthritis, left knee Office Visit 02/13/2021 9:15a Mickie Villarreal MD M1 7.11 Unilateral primary osteoarthritis, right knee R26.9 Unspecified abnormalities of gait and mobility Office Visit 12/22/2020 2:15p Mickie Villarreal MD M1 7.11 Unilateral primary osteoarthritis, right knee R26.9 Unspecified abnormalities of gait and mobility Office Visit 11/12/2020 10:15a [facility] T[facility], P.A. M17.11 Unilateral primary osteoarthritis, right [...] Tello, PShaunA. Plan of Treatment Future Appointment(s):* 04/10/2021 11:30 am - ADITHYA Cox at [facility] Therapy * 04/21/2021 8:15 am - Zully Villarreal MD at [place] 03/03/2021 - Santosh Tello, P.A.* M17.12 Unilateral primary osteoarthritis, left knee* Follow up:* f/u prn Functional Status Description No Information Available Mental Status Description No Information Available Referrals Refer to Dr Reason for Referral Status Appt Date Violeta Gibbs PA-C Physical therapy left knee p er medicare no auth req based on medical necessity, patient is going to [facility], passed to pt dept sw. Created [address] [place], [place] [id number] [place] [address] [phone] Brandon Villarreal MD SURGERY NO AUTH REQUIRED FOR TOTAL RT KNEE([id number]) TO SURGERY NT Created [address] [place] [address], [address] [place] [address] [phone]
--- OUTSIDE RECORDS SUMMARY | 2021-05-16 12:10 | CCD ---
Author Author [facility] Organization [facility] Address Unknown Phone Unavailable Care Team Providers Care [employer] Producer Name Role Phone NO, PCP Unavailable Unavailable Fish Yumiko [facility], PA-C Unavailable Unavailabl e Fish, [facility], PA-C Unavailable Unavailabl e Fish, [facility], PA-C Unavailable Unavailabl e Fish, [facility], PA-C Unavailable Unavailabl e Fish, [facility], PA-C Unavailable Unavailabl e Fish, [facility], PA-C Unavailable Unavailabl e Fish, [facility], PA-C Unavailable Unavailabl e Fish, [facility], PA-C Unavailable Unavailabl e Fish, [facility], PA-C Unavailable Unavailabl e Fish, [facility], PA-C Unavailable Unavailabl e Fish, [facility], PA-C Unavailable Unavailabl e Fish, [facility], PA-C Unavailable Unavailabl e Fish, [facility], PA-C Unavailable Unavailabl e Fish, [facility], PA-C Unavailable Unavailabl e Fish, [facility], PA-C Unavailable Unavailabl e Fish, [facility], PA-C Unavailable Unavailabl e Fish, [facility], PA-C Unavailable Unavailabl e Fish, [facility], PA-C Unavailable Unavailabl e Fish, [facility], PA-C Unavailable Unavailabl e Fish, [facility], PA-C Unavailable Unavailabl e Fish, [facility], PA-C Unavailable Unavailabl e Fish, [facility], PA-C Unavailable Unavailabl e Fish, [facility], PA-C Unavailable Unavailabl e Fish, [facility], PA-C Unavailable Unavailabl e Fish, [facility], PA-C Unavailable Unavailabl e Fish, [facility], PA-C Unavailable Unavailabl e Fish, [facility], PA-C Unavailable Unavailabl e Fish, [facility], PA-C Unavailable Unavailabl e Fish, [facility], PA-C Unavailable Unavailabl e Fish, [facility], PA-C Unavailable Unavailabl e Fish, [facility], PA-C Unavailable Unavailabl e Fish, [facility], PA-C Unavailable Unavailabl e Fish, [facility], PA-C Unavailable Unavailabl e Fish, [facility], PA-C Unavailable Unavailabl e Fish, [facility], PA-C Unavailable Unavailabl e Fish, [facility], PA-C Unavailable Unavailabl e IAMHERSALENA LAZCANO PA Unavailable Unavailable SALENA CELIS Unavailable Unavailable IAMHERSALENA LAZCANO Unavailable Unavailable SALENA CELIS Unavailable Unavailable SALENA CELIS Unavailable Unavailable SALENA CELIS Unavailable Unavailable SALENA CELIS Unavailable Unavailable SALENA CELIS Unavailable Unavailable SALENA CELIS Unavailable Unavailable SALENA CELIS Unavailable Unavailable SALENA CELIS Unavailable Unavailable SALENA CELIS PA Unavailable Unavailable MCELHERAN, SALENA PA Unavailable Unavailable MCELHERAN, SALENA PA Unavailable Unavailable MCELHERAN, SALENA PA Unavailable Unavailable MCELHERAN, SALENA PA Unavailable Unavailable MCELHERAN, SALENA PA Unavailable Unavailable MCELHERAN, SALENA PA Unavailable Unavailable MCELHERAN, SALENA PA Unavailable Unavailable MCELHERAN, SALENA PA Unavailable Unavailable MCELHERAN, SALENA PA Unavailable Unavailable MCELHERAN, SALENA PA Unavailable Unavailable MCELHERAN, SALENA PA Unavailable Unavailable MCELHERAN, SALENA PA Unavailable Unavailable MCELHERAN, SALENA PA Unavailable Unavailable MCELHERAN, SALENA PA Unavailable Unavailable MCELHERAN, SALENA PA Unavailable Unavailable MCELHERAN, SALENA PA Unavailable Unavailable MCELHERAN, SALENA PA Unavailable Unavailable Denis Choudhury MD Unavailable Unavailable Denis Choudhury MD Unavailable Unavailable Denis Choudhury MD Unavailable Unavailable Denis Choudhury MD Unavailable Unavailable Denis Choudhury MD Unavailable Unavailable Denis Choudhury MD Unavailable Unavailable Denis Choudhury MD Unavailable Unavailable Denis Choudhury MD Unavailable Unavailable Denis Choudhury MD Unavailable Unavailable Denis Choudhury MD Unavailable Unavailable Denis Choudhury MD Unavailable Unavailable Denis Choudhury MD Unavailable Unavailable Denis Choudhury MD Unavailable Unavailable Denis Choudhury MD Unavailable Unavailable Denis Choudhury MD Unavailable Unavailable Denis Choudhury MD Unavailable Unavailable Denis Choudhury MD Unavailable Unavailable Denis Choudhury MD Unavailable Unavailable Denis Choudhury MD Unavailable Unavailable Denis Choudhury MD Unavailable Unavailable Denis Choudhury MD Unavailable Unavailable Denis Choudhury MD Unavailable Unavailable Denis Choudhury MD Unavailable Unavailable Denis Choudhury MD Unavailable Unavailable Denis Choudhury MD Unavailable Unavailable Denis Choudhury MD Unavailable Unavailable Denis Choudhury MD Unavailable Unavailable Denis Choudhury MD Unavailable Unavailable Denis Choudhury MD Unavailable Unavailable Denis Choudhury MD Unavailable Unavailable Denis Choudhury MD Unavailable Unavailable Denis Choudhury MD Unavailable Unavailable Denis Choudhury MD Unavailable Unavailable Denis Choudhury MD Unavailable Unavailable Denis Choudhury MD Unavailable Unavailable Clarence Purdy PA Unavailable Unavailable Clarence Purdy PA Unavailable Unavailable Clarence Purdy PA Unavailable Unavailable Clarence Purdyatt PA Unavailable Unavailable Purdy, M Barratt PA Unavailable Unavailable Clarence Purdyatt PA Unavailable Unavailable Clarence Purdy PA Unavailable Unavailable Purdy, M Barratt PA Unavailable Unavailable Purdy, M Barratt PA Unavailable Unavailable Purdy, M Barratt PA Unavailable Unavailable Purdy, M Barratt PA Unavailable Unavailable Purdy, M Barratt PA Unavailable Unavailable Purdy, M Barratt PA Unavailable Unavailable Purdy, M Barratt PA Unavailable Unavailable Purdy, M Barratt PA Unavailable Unavailable Purdy, M Barratt PA Unavailable Unavailable Purdy, M Barratt PA Unavailable Unavailable Purdy, M Barratt PA Unavailable Unavailable Purdy, M Barratt PA Unavailable Unavailable Purdy, M Barratt PA Unavailable Unavailable Purdy, M Barratt PA Unavailable Unavailable Purdy, M Barratt PA Unavailable Unavailable Purdy, M Barratt PA Unavailable Unavailable Purdy, M Barratt PA Unavailable Unavailable Purdy, M Barratt PA Unavailable Unavailable Purdy, M Barratt PA Unavailable Unavailable Purdy, M Barratt PA Unavailable Unavailable Purdy, M Barratt PA Unavailable Unavailable Purdy, M Barratt PA Unavailable Unavailable Brandon Villarreal MD Unavailable Unavailable Brandon Villarreal MD Unavailable Unavailable Brandon Villarreal MD Unavailable Unavailable Brandon Villarreal MD Unavailable Unavailable Brandon Villarreal MD Unavailable Unavailable Brandon Villarreal MD Unavailable Unavailable Brandon Villarreal MD Unavailable Unavailable Brandon Villarreal MD Unavailable Unavailable Brandon Villarreal MD Unavailable Unavailable Brandon Villarreal MD Unavailable Unavailable Brandon Villarreal MD Unavailable Unavailable Brandon Villarreal MD Unavailable Unavailable Brandon Villarreal MD Unavailable Unavailable Brandon Villarreal MD Unavailable Unavailable Brandon Villarreal MD Unavailable Unavailable Brandon Villarreal MD Unavailable Unavailable Brandon Villarreal MD Unavailable Unavailable Brandon Villarreal MD Unavailable Unavailable Brandon Villarreal MD Unavailable Unavailable Brandon Villarreal MD Unavailable Unavailable Brandon Villarreal MD Unavailable Unavailable Brandon Villarreal MD Unavailable Unavailable Brandon Villarreal MD Unavailable Unavailable Brandon Villarreal MD Unavailable Unavailable Brandon Villarreal MD Unavailable Unavailable Brandon Villarreal MD Unavailable Unavailable Brandon Villarreal MD Unavailable Unavailable Brandon Villarreal MD Unavailable Unavailable Brandon Villarreal MD Unavailable Unavailable Brandon Villarreal MD Unavailable Unavailable Brandon Villarreal MD Unavailable Unavailable VaneenenaamBrandon MD Unavailable Unavailable VaneenenaamBrandon MD Unavailable Unavailable VaneenenaamBrandon MD Unavailable Unavailable VaneenenaamBrandon MD Unavailable Unavailable VaneenenaamBrandon MD Unavailable Unavailable VaneenenaamBrandon MD Unavailable Unavailable VaneenenaamBrandon MD Unavailable Unavailable VaneenenaamBrandon MD Unavailable Unavailable VaneenenaamBrandon MD Unavailable Unavailable VaneenenaamBrandon MD Unavailable Unavailable VaneenenaamBrandon MD Unavailable Unavailable VaneenenaamBrandon MD Unavailable Unavailable VaneenenaamBrandon MD Unavailable Unavailable VaneenenaamBrandon MD Unavailable Unavailable VaneenenaamBrandon MD Unavailable Unavailable Re-disclosure Warning The records that you are about to access may contain information from federally-assisted alcohol or drug abuse programs. If such information is present, then the following federally mandated warning applies: This information has been disclosed to you from records protected by federal confidentiality rules (42 CFR part 2). The federal rules prohibit you from making any further disclosure of this information unless further disclosure is expressly permitted by the written consent of the person to whom it pertains or as otherwise permitted by 42 CFR part 2. A general authorization for the release of medical or other information is NOT sufficient for this purpose. The Federal rules restrict any use of the information to criminally investigate or prosecute any alcohol or drug abuse patient.The records that you are about to access may contain highly sensitive health information, the redisclosure of which is protected by Article 27-F of the [facility] Public Health law. If you continue you may have access to information: Regarding HIV / AIDS; Provided by facilities licensed or operated by the [facility] Office of Mental Health; or Provided by the [facility] Office for People With Developmental Disabilities. If such information is present, then the following [facility] mandated warning applies: This information has been disclosed to you from confidential records which are protected by state law. State law prohibits you from making any further disclosure of this information without the specific written consent of the person to whom it pertains, or as otherwise permitted by law. Any unauthorized further disclosure in violation of state law may result in a fine or correction sentence or both. A general authorization for the release of medical or other information is NOT sufficient authorization for further disc losure. Allergies and Adverse Reactions Type Description Substance Reaction Status Data Source(s ) Drug allergy moxifloxacin moxifloxacin ANAPHYLAXIS [facility] Drug allergy alendronate sodium alendronate sodium [facility] Drug allergy losartan [facility] Drug allergy Penicillins Penicillins ANAPHYLAXIS [facility] Drug [facility]FA [facility] Drug allergy penicillan g penicillan g [facility] Propensity to adverse reactions SULFA (sulfonamide) SULFA (sulfonamid e) [facility] Family History Family Member Name Family Member Gender Family Member Status Date o f Status Description Data Source(s) Unknown Male Problem [facility] ([facility]) Unknown Female Problem MEDENT ([facility]) Unknown Female Problem MEDENT ([facility]) Unknown Unknown Problem [facility] ([facility] Unknown Unknown Problem [facility] ([facility]) Unknown Unknown Problem [facility] ([facility]) Encounters Encounter Providers Location Date Indications Data Source(s ) [place] [address] [facility] [address] 05/14/2021 12:00:00 AM EST eCW1 ([facility]) [place] [address] [facility] [address] 05/11/2021 12:00:00 AM EST eCW1 ([facility]) Office Visit Attender: Brandon Villarreal MD Physical Therap y 04/21/2021 08:15:00 AM EDT MED[facility] ([facility]) Outpatient Attender: Brandon Villarreal MD ER-ASUR 04/07/2021 12:45:00 AM EDT - 04/08/2021 09:23:00 AM EDT [facility] Patient discharged. Preadmit Attender: Brandon Villarreal MD ER-OPS 04/02/2021 08: 30:00 AM EDT [facility] Office Visit Attender: Violeta WALLS PA-C Physical Therapy 04/01/2021 10:00:00 AM EDT MED[facility] ([facility]) [place] [address] [facility] [address] 03/25/2021 12:00:00 AM EDT [facility] OFFICE OUTPATIENT VISIT 15 MINUTES Attender: SALENA MARIE Physical Therapy 03/03/2021 04:45:00 PM EDT MEDENT ([facility]) Outpatient Attender: Brandon Villarreal MD Physical Therap y 02/13/2021 09:15:00 AM EDT [facility] ([facility]) [place] [address] [facility] [address] 02/09/2021 12:00:00 AM EDT [facility] [place] [address] [facility] [address] 12/24/2020 12:00:00 AM EDT eCW1 ([facility]) Outpatient Attender: Brandon Villarreal MD Physical Therap y 12/22/2020 02:15:00 PM EDT MED[facility] ([facility]) OFFICE OUTPATIENT VISIT 15 MINUTES Attender: SALENA MARIE Physical Therapy 11/12/2020 10:15:00 AM EDT [facility] ([facility]) Outpatient Attender: Denis Choudhury MDConsultant: PCP NO 09/03/2020 12:15:00 PM EST - 09/03/2020 03:45:00 PM EST [facility] Patient discharged. Outpatient Attender: Denis Choudhury MDConsultant: PCP NO 08/27/2020 09:28:36 AM EST - 09/02/2020 07:32:00 AM EST [facility] Patient discharged. [place] [address] [facility] [address] 08/11/2020 12:00:00 AM EST [facility] [place] [address] [facility] [address] 08/05/2020 12:00:00 AM EST eCW1 ([facility]) Outpatient Attender: SALENA MARIE Physical Therapy 07/30/2020 10:15:00 AM EST [facility] ([facility]) [place] [address] [facility] [address] 07/30/2020 12:00:00 AM EST eCW1 ([facility]) Unknown [address] [facility] [address] 06/16/2020 12:00:00 AM EST eCW1 ([facility]) Unknown [address] 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 [address] 04/03/2020 12:00:00 AM EDT eCW1 ([facility]) Unknown [address] [facility] [address] 04/03/2020 12:00:00 AM EDT eCW1 ([facility]) Unknown [address] [facility] [address] 04/03/2020 12:00:00 AM EDT eCW1 ([facility]) Immunizations Vaccine Date Status Description Data Source(s) COVID-19 dose #2 given elsewhere Unspecified 08/09/2020 06:2 6:00 AM EST completed eCW1 ([facility]) COVID-19 dose #2 given elsewhere Unspecified 08/09/2020 06:2 6:00 AM EST completed eCW1 ([facility]) COVID-19 dose #2 given elsewhere Unspecified 08/09/2020 06:2 6:00 AM EST completed eCW1 ([facility]) COVID-19 dose #2 given elsewhere Unspecified 08/09/2020 06:2 6:00 AM EST completed eCW1 ([facility]) COVID-19 VACCINE Moderna 08/09/2020 12:00:00 AM EST completed [facility] Vaccine Series Complete: YESThis Data wa s Submitted to [facility] Via [employer]. COVID-19 dose #1 given elsewhere Unspecified 07/12/2020 09:0 7:00 AM EST completed eCW1 ([facility]) COVID-19 dose #1 given elsewhere Unspecified 07/12/2020 09:0 7:00 AM EST completed eCW1 ([facility]) COVID-19 dose #1 given elsewhere Unspecified 07/12/2020 09:0 7:00 AM EST completed eCW1 ([facility]) COVID-19 dose #1 given elsewhere Unspecified 07/12/2020 09:0 7:00 AM EST completed eCW1 ([facility]) COVID-19 VACCINE Moderna 07/12/2020 12:00:00 AM EST completed [facility] Vaccine Series Complete: NOThis Data was Submitted to [facility] Via [employer]. COVID-19 dose #1 given elsewhere Unspecified 07/11/2020 09:0 7:00 AM EST completed eCW1 ([facility]) COVID-19 dose #1 (given elsewhere) Unspecified 07/11/2020 09 :07:00 AM EST completed eCW1 ([facility]) COVID-19 dose #1 (given elsewhere) Unspecified 07/11/2020 09 :07:00 AM EST completed eCW1 ([facility]) IIV3. This is one of two codes replacing CVX 15, which is being retired. 04/02/2020 09:07:00 AM EDT completed eCW1 ([facility]) IIV3. This is one of two codes replacing CVX 15, which is being retired. 04/02/2020 09:07:00 AM EDT completed eCW1 ([facility]) IIV3. This is one of two codes replacing CVX 15, which is being retired. 04/02/2020 09:07:00 AM EDT completed eCW1 ([facility]) IIV3. This is one of two codes replacing CVX 15, which is being retired. 04/02/2020 09:07:00 AM EDT completed eCW1 ([facility]) IIV3. This is one of two codes replacing CVX 15, which is being retired. 04/02/2020 09:07:00 AM EDT completed eCW1 ([facility]) IIV3. This is one of two codes replacing CVX 15, which is being retired. 04/02/2020 09:07:00 AM EDT completed eCW1 ([facility]) IIV3. This is one of two codes replacing CVX 15, which is being retired. 04/02/2020 09:07:00 AM EDT completed eCW1 ([facility]) Medications Medication Brand Name Start Date Product Form Dose Route Admi nistrative Instructions Pharmacy Instructions Status Indications Reaction Description Data Source(s) Mupirocin 0.02 MG/MG Topical Ointment Mupirocin 02/25/2021 12:00:00 AM EDT [facility] 240 mcg/0.7 mL 02/25/2021 12:00:00 AM EDT syringe 0 DIRECTED DIRECTED SOLD: 02/25/2021 [facility] Acetaminophen 325 MG / Hydrocodone Bitartrate 5 MG Ora l Tablet Hydrocodone Bitartrate/Acetaminophen 02/25/2021 12:00:00 AM EDT ORAL active MEDENT ([facility] ) chlorhexidine gluconate 40 MG/ML Medicated Liquid Soap [Hibi clens] Hibiclens 02/25/2021 12:00:00 AM EDT active MEDENT ([facility] ) 24 HR Bupropion Hydrochloride 150 MG Ext ended Release Oral Tablet [Wellbutrin] Wellbutrin XL 150 MG Wellbutrin XL 150 MG 12/24/2020 12:00:00 AM EDT 1.0 {tablet_in_the_morning} active Wellbutr in XL 150 MG eCW1 ([facility]) 0.3-0.1 % 09/03/2020 12:00:00 AM EST ointment 3 APPLY THIN LAYER TO EYELID ONCE DAILY AT BEDTIME DAYS 8-14 APPLY THIN LAYER TO EYELID ONCE DAILY AT BEDTIME DAYS 8-14 SOLD: 09/03/2020 [facility] 0.3 % 09/03/2020 12:00:00 AM EST ointment 3 APPLY THIN LAYER ON EYELID ONCE DAILY AT BEDTIME ON DAYS 1-7 APPLY THIN LAYER ON EYELID ONCE DAILY AT BEDTIME ON DAYS 1-7 SOLD: 09/03/2020 [facility] Insurance Providers Payer name Policy type / Coverage type Policy ID Covered constitution party ID Covered constitution party's relationship to morales Policy Morales Plan Information [facility]) Workers Compensation [id number] Self [employer] () Workers Compensation [id number] Self MEDICARE [id number] S [id number] U00 MEDICARE [id number] S [id number] MEDICARE [id number] S [id number] MEDICARE PART A -O/P [id number] [facility] C[facility] OPTIONS [id number] SP [id number] AAR O [id number] S [id number] MEDICARE C [id number] S [id number] U00 ANS-Medicare Part B [id number] ANSI-Commercial [id number] ANSI-Medicare Part B [id number] ANSI-Commercial [id number] ANSI-Commercial [id number] ANSI-Medicare Part B [id number] ANSI-Medicare Part B [id number] ANSI-Commercial [id number] [facility] OPTIONS [id number] SP [id number] ANSI-Medicare Part B [id number] ANSI-Commercial [id number] ANSI-Commercial [id number] ANSI-Medicare Part B [id number] [facility] Health Care Options [facility] Part B [id number] Self [id number] Medicare [place] Primary [id number] Self [id number] ANSI-Commercial [id number] ANSI-Medicare Part B [id number] ANSI-Medicare Part B [id number] ANSI-Commercial [id number] ANSI-Medicare Part B [id number] ANSI-Commercial [id number] MEDICARE [id number] A ANSI-Medicare Part B [id number] ANSI-Commercial [id number] [facility] OPTIONS [id number] SP [id number] TRAVELERS NO FAULT [id number] SP [id number] Medicare [place] Medicare Primary [id number] Self MEDICARE C [id number] S [id number] A OTHER NO FAULT [id number] [place] [id number] Medicare Natl Gov't Servi Medicare Primary [id number] Self MEDICARE [id number] SP [id number] U00 [id number] A [facility] OPTIONS [id number] SP [id number] Problems, Conditions, and Diagnoses Code Display Name Description Problem Type Effective Dates Data Source(s) Z87.891 Personal history of nicotine dependence PERSONAL HISTORY OF NICOTINE DEPENDENCE Diagnosis 04/07/2021 12:45:00 AM EDT [facility] E78.00 PURE HYPERCHOLESTEROLEMIA, UNSPECIFIED P URE HYPERCHOLESTEROLEMIA, UNSPECIFIED Diagnosis 04/07/2021 12:45:00 AM T [facility] I10 Essential (primary) hypertension ESSENTIAL (PRIMARY) H YPERTENSION Diagnosis 04/07/2021 12:45:00 AM [facility] M17.11 Unilateral primary osteoarthritis, right knee UNILATERAL PRIMARY OSTEOARTHRITIS, RIGHT KNEE Diagnosis 04/07/2021 12:45:00 AM [facility] Z880 Allergy status to penicillin Allergy status to penicil yesika Diagnosis 09/03/2020 12:15:00 PM [facility] [facility] Z882 Allergy status to sulfonamides Allergy status to sulfo namides Diagnosis 09/03/2020 12:15:00 PM [facility] [id number] Family history of glaucoma Family history of glaucoma Diagnosis 09/03/2020 12:15:00 PM [facility] K219 Gastro-esophageal reflux disease without esophagitis Gastro-esophageal reflux disease without esophagitis Diagnosis 09/03/2020 12:15:00 PM [facility] I10 Essential (primary) hypertension Essential (primary) h ypertension Diagnosis 09/03/2020 12:15:00 PM [facility] E7800 Pure hypercholesterolemia, unspecified P ure hypercholesterolemia, unspecified Diagnosis 09/03/2020 12:15:00 PM [facility] 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, unspecified, bilateral Preglaucoma, unspecified, bilateral Diagnosis 09/03/2020 12:15:00 PM [facility] [id number] Keratoconjunctivitis sicca, not specifie d as Sjogren's, bilateral Keratoconjunctivitis sicca, not specified as Sjogren's, bilateral Diagnosis 09/03/2020 12:15:00 PM [facility] [id number] Dermatochalasis of left upper eyelid Jose matochalasis of left upper eyelid Diagnosis 09/03/2020 12:15:00 PM [facility] [id number] Dermatochalasis of right upper eyelid De rmatochalasis of right upper eyelid Diagnosis 09/03/2020 12:15:00 PM [facility] 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 M echanical ptosis of bilateral eyelids Diagnosis 09/03/2020 12:15:00 PM [facility] R99 Ill-defined and unknown cause of mortali ty Ill-defined and unknown cause of mortality Diagnosis 09/02/2020 07:32:00 AM [facility] M17.11 [id number] Primary osteoarthritis of right knee P roblem 02/09/2021 12:00:00 AM EDT eCW1 ([facility]) Surgeries/Procedures Procedure Description Date Indications Data Source(s) THERAPEUTIC PX 1/> AREAS EACH 15 MIN EXERCISES 12:00:00 AM EST [facility] ([facility] ) THERAPEUTIC PX 1/> AREAS EACH 15 MIN EXERCISES 12:00:00 AM EST [facility] ([facility] ) THERAPEUTIC PX 1/> AREAS EACH 15 MIN EXERCISES 12:00:00 AM EDT [facility] ([facility] ) THERAPEUTIC PX 1/> AREAS EACH 15 MIN EXERCISES 12:00:00 AM EDT [facility] ([facility] ) THERAPEUTIC PX 1/> AREAS EACH 15 MIN EXERCISES 12:00:00 AM EDT [facility] ([facility] ) THERAPEUTIC PX 1/> AREAS EACH 15 MIN EXERCISES 12:00:00 AM EDT [facility] ([facility]) THERAPEUTIC PX 1/> AREAS EACH 15 MIN EXERCISES 12:00:00 AM EDT [facility] ([facility]) THERAPEUTIC PX 1/> AREAS EACH 15 MIN EXERCISES 12:00:00 AM EDT [facility] ([facility]) Physical Therapy Eval - Low Complexity 04/10/2021 12:0 0:00 AM EDT [facility] ([facility]) ARTHRP KNE CONDYLE&PLATU MEDIAL&LAT CMPRTS 04/07/2021 12:00:00 AM EDT [facility] ([facility]) ECG ROUTINE ECG W/LEAST 12 LDS W/I&R 03/25/2021 12:00: 00 AM EDT eCW1 ([facility]) ARTHROCENTESIS ASPIR&/INJECTION MAJOR JT/BURSA 12:00:00 AM EDT [facility] ([facility]) OFFICE OUTPATIENT VISIT 15 MINUTES 03/03/2021 12:00:00 AM EDT [facility] ([facility]) OFFICE OUTPATIENT VISIT 25 MINUTES 02/13/2021 12:00:00 AM EDT [facility] ([facility]) ARTHROCENTESIS ASPIR&/INJECTION MAJOR JT/BURSA 12:00:00 AM EDT [facility] ([facility]) X-Ray Hip Unilateral With Pelvis 2-3 Views 12/22/2020 12:00:00 AM EDT [facility] ([facility]) OFFICE OUTPATIENT VISIT 25 MINUTES 12/22/2020 12:00:00 AM EDT [facility] ([facility]) RADIOLOGIC EXAM KNEE COMPLETE 4/MORE VIEWS 11/12/2020 12:00:00 AM EDT [facility] ([facility]) OFFICE OUTPATIENT VISIT 15 MINUTES 11/12/2020 12:00:00 AM EDT [facility] ([facility]) OFFICE OUTPATIENT VISIT 10 MINUTES 07/30/2020 12:00:00 AM EST [facility] ([facility]) ARTHROCENTESIS ASPIR&/INJECTION MAJOR JT/BURSA 12:00:00 AM EST [facility] ([facility]) ARTHROCENTESIS ASPIR&/INJECTION MAJOR JT/BURSA 020 12:00:00 AM EDT [facility] ([facility]) Results ID Date Data Source [id number] 04/08/2021 09:03:00 AM EDT [facility] [place], [place] [id number] SUMMARYPATIENT NAME: OSCAR BERRY MR#: [id number] PHYSICIAN: NATALIYA VILLARREAL, MDAUTHOR: Shen Greenberg MD DATE: #: ASURDISCHARGE DATE: 04/08/21 : 45Summary of HospitalizationReason for AdmissionRight knee pain chronicHospital Tfcrvy47 yo F who presented to the hospital for definitive management of her R kneepain. Pt underwent a R total knee replacement arthroplasty. She tolerated theprocedure well. Pain was controlled with tylenol, morphine, percocet. Pt didreceive her blood pressure medications. Pt was seen and cleared by PT/OT forsafe discharge home on 04/08/2021. Per the direction of the orthopedic surgeonthe pt will use aspirin 325 mg PO bid for DVT prophylaxis (I sent aprescription for that to the pt's pharmacy). The orthopedic surgeon has sentthe pt's pain medicine to the pharmacy already.Procedures & Relevant StudiesStudiesLAFAYETTE, [place] [address]PZXPSDPVCM CONSULTATIONDate of : 1945 Name: OSCAR BERRY LMedrec Number: [id number] Phys: NATALIYA VILLARREAL MDExraul Date: 04/07/2021 Location: 2EASTProcedure: KNEEL, KNEE LIMITED Rad Numb: [id number] \\EXAM# TYPE/EXAM [id number] DX/KNEE LIMITEDDATE OF EXAMINATION: 04/07/2021 9:24 EDTHISTORY: Knee prosthesisTECHNIQUE: 2 views right knee were obtained.FINDINGS:Total knee prosthesis is in excellent alignment. Postoperative softtissue emphysema and dorsal skin silvia are noted.IMPRESSION:Total knee prosthesis.Electronically signed in PS360 by: Keith Dietrich M.D. :35 EDT Reported By: Gabbi DIETRICH M.D.OUR RADIOLOGY DEPARTMENT IS ACCREDITED BY THE [employer] IN THE FOLLOWING MODALITIES:CT, MRI, NUCLEAR MEDICINE, PET/CT,MAMMOGRAPHY/STEREOTACTIC BIOPSY, & ULTRASOUNDCC: Zully VILLARREAL M.D.Procedure Start: 04/07/21 (925) Procedure Complete: 04/07/21 (925)Technologist: Toyin ONEILL(Katia)(CT)Transcribed Date/Time: 04/07/2021 (946)Sr. Merchandise Planner: XPrinted Date/Time: 04/08/2021 (906)PAGE 1 Signed Report Printed From PCIPatient's Discharge ConditionVital SignsVital Signs-LastResult Date TimeB/P 128/59 04/08 0858Pulse Ox 92 04/08 0608Temp 97.8 04/08 0608Pulse 69 04/08 0608Resp 16 04/08 0608P atient's Discharge ConditionDischarge Date 04/08/21Discharge Conditon fairDischarge DispositionHOMEPhysical ExaminationGeneral Appearance no acute distress, afebrile, alert, awake, conversantHead atraumatic, normocephalicNeck suppleCardiovascular regular rateRespiratory clear to auscultation, no distress, aerating wellAbdomen soft, non-tenderUrinary no flank painExtremities no edema, right knee cooler on. PP + 2 B/LMuscoskeletal full range of motion, normal inspectionNeurological alert, oriented x 3Psych/Mental Status normal affectPatient/Family InstructionsPrescriptionsStop taking the following med ications:ASPIRIN (Low Dose Aspirin EC) 81 MG TABLET.DR81 MILLIGRAM Orally EVERY OTHER DAYContinue taking these medications:OMEPRAZOLE (OMEPRAZOLE) 20 MG CAPSULE.DR20 MILLIGRAM Orally DAILY as needed for GERDFLUTICASONE PROPIONATE (Flonase Allergy Relief) 9.9 ML SPRAY.SUSP2 SPRAY Nasally DAILYATORVASTATIN (Lipitor*) 40 MG GJCMEM21 MILLIGRAM Orally AT BEDTIMEAMLODIPINE BESYLATE (NORVASC*) 5 MG TABLET5 MILLIGRAM Orally DAILYIRBESARTAN/HYDROCHLOROTHIAZIDE (Irbesartan-Hctz 300-12.5 MG Tb) 300 MG/12.5 MGTAB1 TABLET Orally DAILYMELOXICAM (MELOXICAM) 15 MG ORYTHB33 MILLIGRAM Orally DAILY as needed for PAIN, ARTHRITISFOLIC ACID* (Folvite*) 1 MG [id number] MILLIGRAM Orally DAILYStart taking the following new medications:ASPIRIN (Aspirin) 325 MG [id number] MILLIGRAM Orally TWICE DAILYDays = 14 Qty = 28No RefillsDischarge Activity: As toleratedDischarge diet: RegularFollow-upFollow up with your Primary care physician and with your orthopedic surgeonTime spent by provider to complete discharge > 30 minutesDATE SIGNED: 04/08/21 Electronically SignedTIME SIGNED: 1935 SHEN GREENBERG MD Name Value Range Interpretation Code Description Data Rachel rce(s) Supporting Document(s) ID Date Data Source [id number] 04/08/2021 09:00:00 AM EDT [place], [place] [address]PATIENT NAME: OSCAR BERRY#: [id number] PHYSICIAN: NATALIYA VILLARREAL [facility] #: [id number] ADM. DATE:PATIENT : 45 DISCH. DATE: [50}DISCHARGE SUMMARYMedical Discharge PlanNicotine Replacement TherapyPrescribed at discharge Rx for med [facility] Care InstructionsDischarge Activity: As toleratedDischarge diet: RegularProblem ListMedical ProblemsAllergic rhinitisDyslipidemiaGERD (gastroesophageal reflux disease)HypertensionFollow Up CareFollow Up:Follow up with your Primary care physician and with your orthopedic surgeonPriority ItemsUrgent/Important items that need to be addressed at primary care follow-upappointmentPlease take the aspirin 325 mg PO bid as requested by the orthopedic surgeonDischarge InformationDISCHARGE INFORMATION* Thank you for choosing [facility] and allowing us toserve you* Our Goal is to provide the highest quality of care.* This discharge information is to help you better understand your diagnosisand medication* Avoid taking pict-zoq-npohokj medicines unless approved by your physician.* Take your medications as prescribed. DO NOT stop any medications unlessapproved first* Weigh yourself daily. Report any gain of 5 lbs in a week* 24 Hour Crisis HOTLINE available: Call [employer] at [phone] SMOKING CESSATION* Smoking is dangerous to your health. It delays the healing process, andworks against your medications. Not smoking will improve your health* Our hospital participates with the Opt-to-Quit program. You will be contactedafter discharge by the [facility] Smoker's Quitline for support with tosha lares. You have the option once contacted to refuse this service.* You can also go online to www.[employer]. Free nicotine replacementsare available Attention* You should contact your follow up Physician as it is important that you lethim or her check you and report any new or remaining problems. If yourcondition worsens, follow up with your provider or visit our EmergencyDepartment. If you received pain medication, anxiety medications, musclerelaxants, or any medication that causes drowsiness, you cannot operatemachinery, power tools, or drive.END ENDDICT: 04/08/21899 Electronically SignedTRANS:04/08/21899 SHEN GREENBERG MDTRANS BY:DATE SIGNED:04/08/21TIME SIGNED: 901REPORT COPY TO: Name Value Range Interpretation Code Description Data Rachel rce(s) Supporting Document(s) ID Date Data Source [id number] 04/08/2021 06:51:00 AM EDT [address] [address]RBCME PROGRESS NOTEPATIENT NAME: OSCAR BERRY PHYSICIAN: NATALIYA VILLARREAL MDAUTHOR: Luke Villarreal. DATE: MR#: [id number] NOTE DATE: 04/08/21 RM#: [id number] TIME: 06 : 45SubjectiveEvents Since Last EntryShe is postoperative day #1 from right knee replacement. She is doing verywell. She has been up and ambulating to the bathroom on her own and voiding.Her pain has been well controlled. She is not complaining of any numbness ortingling in her lower extremities.Vital Signs- LastResult Date TimePulse Ox 92 04/08 0608B/P 128/59 04/08 06Temp 97.8 04/08 06Pulse 69 04/08 0608Resp 16 04/08 06On exam her knee dressing is clean and dry and her ice wrap and teds andsequential compression stockings are in place. She can dorsiflex and plant arflex her foot without difficulty and she has normal sensation.Postoperative radiographs are satisfactory.This morning's laboratory studies are pending.Plan is for therapy to visit with her once again this morning work on range ofmotion strengthening and gait training and if felt safe for discharge we willplan on discharging her this afternoon. She will be using 1 adult aspirintwice a day for 14 days for DVT prophylaxis. Pain pill prescription has beensent to her pharmacy and plan is for follow-[facility] 2 weeks.Assessment/PlanResuscitation status Full codeDATE SIGNED: 04/08/21 Electronically SignedTIME SIGNED: 06 NATALIYA VILLARREAL MD Name Value Range Interpretation Code Description Data Rachel rce(s) Supporting Document(s) ID Date Data Source [id number] 04/08/2021 04:10:00 AM EDT [facility]Y ([facility] ) Name Value Range Interpretation Code Description Data Rachel rce(s) Supporting Document(s) Urea nitrogen [Mass/volume] in Serum or Plasma 20 mg/dL 7-23 [facility] ([facility] ) Glucose [Mass/volume] in Serum or Plasma 107 mg/dL 70-110 [facility] ([facility]) Patients taking Sulfasalazine may have f alsely depressed Glucose levels. Patients taking Sulfapyridine may have falsely elevated Glucose levels. Patients should be drawn for Glucose before the initial administration of either drug. Creatinine [Mass/volume] in Serum or Plasma 0.992 mg/dL 0.500-1.300 [facility] ([facility]) Glomerular filtration rate/1.73 sq M.pre dicted [Volume Rate/Area] in Serum or Plasma by Creatinine-based formula (MDRD) 58 mL/min [facility] ([facility] ) Chloride [Moles/volume] in Serum or Plasma 106 mmol/L 99-110 [facility] ([facility] ) Sodium [Moles/volume] in Serum or Plasma 139 mmol/L 136-147 [facility] ([facility] ) Potassium [Moles/volume] in Serum or Plasma 4.7 mmol/L 3.5-5.1 [facility] ([facility] ) Bicarbonate [Moles/volume] in Blood 24 mmol/L 20-33 [facility] ([facility] ) CA 9.1 mg/dL 8.3-10.7 [facility] ([facility] ) Anion gap in Serum or Plasma 13.7 10.0-20.0 [facility] ([facility] ) Alkaline phosphatase [Enzymatic activity/volume] in Serum or Plasma 65 U/L 45-117 [facility] ([facility] ) Protein [Mass/volume] in Serum or Plasma 5.8 g/dL 6.0-7.8 [facility] ([facility] ) Globulin [Mass/volume] in Serum by calculation 2.5 g/dL 2.3-3.5 [facility] ([facility] ) Albumin [Mass/volume] in Serum or Plasma 3.3 g/dL 3.5-5.0 [facility] ([facility] ) ESRD Dialysis patient Albumin reference range: 2.9-4.4 g/dL Bilirubin.total [Mass/volume] in Serum or Plasma 0.4 mg/dL 0.1-1.1 [facility] ([facility] ) The [employer] [place] Total Bilirubin is n ot recommended for patients undergoing treatment with eltrombopag (Promacta) due to the potential for falsely elevated results. Albumin/Globulin [Mass Ratio] in Serum or Plasma 1.3 1.0-2.5 [facility] ([facility] ) Aspartate aminotransferase [Enzymatic activity/volume] in Serum or Plasma 16 U/L 6-38 [facility] ([facility] ) Patients taking Sulfasalazine and/or Sul fapyridine may have falsely depressed AST levels. Patients should be drawn for AST before the initial administration of either drug. Alanine aminotransferase [Enzymatic activity/volume] in Seru m or Plasma 20 U/L 6-54 [facility] ([facility] ) Patients taking Sulfasalazine and/or Sul fapyridine may have falsely depressed ALT levels. Patients should be drawn for ALT before the initial administration of either drug. ID Date Data Source [id number] 04/08/2021 04:10:00 AM EDT [facility] ([facility] ) Name Value Range Interpretation Code Description Data Rachel rce(s) Supporting Document(s) Leukocytes [#/volume] in Blood by Automated count 9.90 x10E3/uL 4.0-1 0.5 [facility] ([facility] ) Erythrocytes [#/volume] in Blood by Automated count 3.15 x10E6/uL 4.2 0-5.40 [facility] ([facility]) Hemoglobin [Mass/volume] in Blood 9.8 g/dL 12.0-16.0 [facility] ([facility] ) Hematocrit [Volume Fraction] of Blood by Automated count 29.2 % 3 7.0-47.0 [facility] ([facility] ) MCV 92.7 fL 81.0-99.0 [facility] ([facility] ) MCHC 33.6 g/dL 32.7-35.6 [facility] ([facility] ) MCH 31.1 pg 27.0-31.0 [facility] ([facility] ) Platelets [#/volume] in Blood by Automated count 300 x10E3/uL 150-450 [facility] ([facility] ) RDW 12.9 % 11.5-14.0 [facility] MPV 9.9 fl 6.9-9.5 [facility] ([facility]) Neutrophils 81.2 % 34-64 [facility]) Lymphocytes 8.7 % 25-45 [facility] ([facility]) Monocytes 9.4 % 1.7-10.6 [facility] ([facility]) Eosinophils 0 % 0.4-7.0 [facility]) Basophils 0.3 % 0.1-2.0 [facility] ([facility]) Abs. Neutro. 8.04 x10E3/uL 1.2-7.6 [facility]) Imm. Gran. 0.4 % 0.1-2.0 [facility]) Abs. Phillips. 0.93 x10E3/uL 0.1-1.0 [facility] ([facility]) Abs. Lymph. 0.86 x10E3/uL 1.0-3.5 [facility] ([facility]) Abs. Eosin. 0.00 x10E3/uL 0.1-0.7 [facility] ([facility]) Abs. Baso. 0.03 x10E3/uL 0.0-0.1 [facility] ([facility]) Abs. Imm. Gran. 0.04 x10E3/uL 0.0-0.1 [facility] Laboratory test finding (navigational concept) 0 % [facility] ([facility]) ID Date Data Source [id number] 04/08/2021 06:39:00 AM EDT [facility] Name Value Range Interpretation Code Description Data Rachel rce(s) Supporting Document(s) GLU 107 mg/dL 70-110 [facility] Patients taking Sulfasalazine may have f alsely depressedGlucose levels. Patients taking Sulfapyridine may havefalsely elevated Glucose levels. Patients should be drawnfor Glucose before the initial administration of eitherdrug. BUN 20 mg/dL 7-23 [facility] CRE 0.992 mg/dL 0.500-1.300 [facility] GFR 58 mL/min [facility] CHLORIDE 106 mmol/L 99-110 [facility] NA 139 mmol/L 136-147 [facility] POTASSIUM 4.7 mmol/L 3.5-5.1 [facility] TCO2 24 mmol/L 20-33 [facility] ANION GAP 13.7 10.0-20.0 [facility] CA 9.1 mg/dL 8.3-10.7 [facility] ALKALINE PHOS 65 U/L 45-117 [facility] TP 5.8 g/dL 6.0-7.8 [facility] ALB 3.3 g/dL 3.5-5.0 [facility] ESRD Dialysis patient Albumin reference range: 2.9-4.4 g/dL GL 2.5 g/dL 2.3-3.5 [facility] A/G 1.3 1.0-2.5 [facility] T. BILIRUBIN 0.4 mg/dL 0.1-1.1 [facility] The [employer] [place] Total Bilirubin is n ot recommended forpatients undergoing treatment with eltrombopag (Promacta)due to the potential for falsely elevated results. ALTI 20 U/L 6-54 [facility] Patients taking Sulfasalazine and/or Sul fapyridine may havefalsely depressed ALT levels. Patients should be drawn forALT before the initial administration of either drug. AST 16 U/L 6-38 [facility] Patients taking Sulfasalazine and/or Sul fapyridine may havefalsely depressed AST levels. Patients should be drawn forAST before the initial administration of either drug. ID Date Data Source [id number] 04/08/2021 06:21:00 AM EDT [facility] Name Value Range Interpretation Code Description Data Rachel rce(s) Supporting Document(s) WBC 9.90 x10E3/uL 4.0-10.5 [facility] RBC 3.15 x10E6/uL 4.20-5.40 [facility] Hemoglobin 9.8 g/dL 12.0-16.0 [facility] Hematocrit 29.2 % 37.0-47.0 [facility] MCV 92.7 fL 81.0-99.0 [facility] MCH 31.1 pg 27.0-31.0 [facility] MCHC 33.6 g/dL 32.7-35.6 [facility] RDW 12.9 % 11.5-14.0 [facility] Platelet count 300 x10E3/uL 150-450 [facility] MPV 9.9 fl 6.9-9.5 [facility] Neutrophils 81.2 % 34-64 [facility] Lymphocytes 8.7 % 25-45 [facility] Monocytes 9.4 % 1.7-10.6 [facility] Eosinophils 0 % 0.4-7.0 L [facility] Basophils 0.3 % 0.1-2.0 [facility] Imm. Gran. 0.4 % 0.1-2.0 [facility] Abs. Neutro. 8.04 x10E3/uL 1.2-7.6 [facility] Abs. Lymph. 0.86 x10E3/uL 1.0-3.5 [facility] Abs. Phillips. 0.93 x10E3/uL 0.1-1.0 [facility] Abs. Eosin. 0.00 x10E3/uL 0.1-0.7 [facility] Abs. Baso. 0.03 x10E3/uL 0.0-0.1 [facility] Abs. Imm. Gran. 0.04 x10E3/uL 0.0-0.1 [facility] ANRBC% 0 % 0 [facility] ID Date Data Source [id number] 04/07/2021 04:09:00 PM EDT [facility] [address]BAUCTLG AND PHYSICALPATIENT NAME: OSCAR BERRY MR#: [id number] PHYSICIAN: NATALIYA VILLARREAL MDAUTHOR: Jaguar Soliz DATE: 04/07/21 RM#: [id number] & PHYSICAL DATE: 04/07/21 : 45EVALUATION TIME: 1614HistoryChief Complaint/Admit ReasonRight knee pain chronicHistory of Presenting IllnessPatient is a 75-year-old white female status post right total knee replacement.Patient has a longstanding history of osteoarthritis. Her pain in her rightknee was worsening. She reports no significant relief from injections and painmedications. Her pain was quite severe. Patient has a history of hypertension, dyslipidemia, GERD and allergic rhinitis. She has no acute complaints. Sheis already been up and ambulating. She is feeling well. Sensation is intactbilaterally. No significant pain. She is a likely discharge for tomorrow.Past Medical/Surgical HistoryPast Medical/Surgical HistoryMedical ProblemsAllergic rhinitisDyslipidemiaGERD (gastroesophageal reflux disease)HypertensionReconciled Home Med ListSee Reconciled Home Medication ListAllergiesCoded Allergies:Penicillins (ANAPHYLAXIS 04/02/21)SULFA (04/02/21)alendronate sodium (From FOSAMAX) (04/02/21)losartan (From COZAAR) (04/02/21)moxifloxacin (From AVELOX) (ANAPHYLAXIS 04/02/21)Family history Mother father both multiple medical problems 70sSocial History no tobacco use, no alcohol use, no recreational drug useReview of SystemsSystems reviewed and negative Constitutional, Integumentary, Eyes, ENT,Respiratory, Cardiovascular, GI, , Wero, Endocrine, Neurology, Psych, Allergy/ImmunologyMusculoskeletalReports: other (Minimal right knee pain).ExamVital SignsVital Signs-24 HRS10/12 10/686055 1400Temp 97.7 97.9Pulse 71 67Resp 16 18B/P 136/80 132/63B/P MeanPulse Ox 94 95O2 DeliveryO2 Flow OtcdYeU3Dtoftoxu ExaminationGeneral Appearance no acute distress, afebrile, alertHead atraumatic, normocephalicNeck no JVD, no lymphadenopathyCardiovascular regular rate, no murmurRespiratory clear to auscultation, no distressAbdomen soft, non-tenderUrinary no bladder distention, no flank painExtremities no clubbing, no cyanosis, no edema, normal pulses, no tenderness/swelling, right knee cooler on., PP + 2 B/LMuscoskeletal full range of motion, normal inspectionNeurological alert, oriented x 3, normal cerebellar functio, normal speech, nomotor deficits, no sensory deficitsSkin AssessmentSkin dry, warm, R knee dsg dry and intact.Psych/Mental Status normal affectData ReviewLaboratory DataNone on fileImagingEXAM# TYPE/EXAM [id number] DX/KNEE LIMITEDDATE OF EXAMINATION: 04/07/2021 9:24 EDTHISTORY: Knee prosthesisTECHNIQUE: 2 views right knee were obtained.FINDINGS:Total knee prosthesis is in excellent alignment. Postoperative softtissue emphysema and dorsal skin silvia are noted.IMPRESSION:Total knee prosthesis.Electronically signed in PS360 by: Keith Dietrich M.D. :35 EDT Reported By: Gabbi DIETRICH M.D.Assessment/PlanDiagnosis/Problem1. HypertensionA&PNorvasc, hydrochlorothiazide allergic to our formulary ARB losartan.2. DyslipidemiaA&PContinue statin3. Allergic rhinitisA&PFlonase not on formulary. Continue on discharge4. GERD (gastroesophageal reflux disease)A&PContinue PPIAdditional NotesThank you for the kind consult. We will follow along until discharge.She is on aspirin 325 twice daily for DVT prophylaxis per orthopedic team. Herpain is well controlled.Total time spent 30 minutesLikely discharge tomorrow as she is doing very well after surgery.Resuscitation status Full codePlan discussed with patientCase discussed with case hardener, nursing staffCopies ToCopies to Family Provider: PCP on fileCQM VTE HISTORYVTE HISTORYPrior VTE? NoDATE SIGNED: 04/07/21 Electronically SignedTIME SIGNED: 1614 JAGUAR SIMON MAURER Name Value Range Interpretation Code Description Data Rachel rce(s) Supporting Document(s) ID Date Data Source [id number] 04/07/2021 09:47:00 AM EDT [facility] Exam Number: [id number] OF EXAMINATIO N: 04/07/2021 9:24 EDTHISTORY: Knee prosthesisTECHNIQUE: 2 views right knee were obtained.FINDINGS:Total knee prosthesis is in excellent alignment. Postoperative softtissue emphysema and dorsal skin silvia are noted.IMPRESSION:Total knee prosthesis.Electronically signed in PS360 by: Keith Dietrich M.D. :35 EDT Reported By: Roger DIETRICH M.D. Signed By: Gabbi DIETRICH M.D. Name Value Range Interpretation Code Description Data Rachel rce(s) Supporting Document(s) ID Date Data Source [id number] 04/07/2021 09:24:00 AM EDT [address] [id number] OPERATIVE REPORTPATIENT NAME: OSCAR BERRY MR#: [id number] PHYSICIAN: TODD MUNOZURGEON: Jennifer Villarreal DATE: RM#: [id number] DATE: PATIENT : 45Operative ReportOperative ReportDate of Procedure: April 07, 2021OPERATION: Right total knee replacement arthroplasty.PREOPERATIVE DIAGNOSIS: Right knee osteoarthritisPOSTOPERATIVE DIAGNOSIS: Same.Surgeon: Dr. CarterFir Box Worker: Boo PateloAnesthesia: Right adductor canal block with spinalEBL: 20ccSpecimen: Joint surfacePROCEDURE: Right total knee arthroplasty using size 4 attune cruciate re tainingfemoral component size 4 tibial tray 6 mm rotating platform polyethylene insertand a 32 mm polyethylene button all components were cemented.Antibiotics were given preoperatively and a successful spinal anesthetic wasinduced. Tourniquet was placed right upper thigh not inflated right lowerextremity is carefully prepped and draped in usual sterile fashion thenelevated and after appropriate timeout the tourniquet was inflated 250 mmHg for51 minutes.Longitudinal incision was made for a medial parapatellar approach to the knee.Bovie cautery was used to coagulate crossing vessels. Medial parapate llararthrotomy performed. Subperiosteal dissection on the proximal medial tibialplateau and proximal lateral tibial plateau was performed. The patella waseverted and the knee flexed and the ACL debrided. Drill placed down the centerof the femoral canal followed by the intramedullary soumya in the distal femoralcutting jig. The jig was set at 9 mm resection level at 5 degrees valgus for [facility] knee. The block was pinned into position then the distal femoral cutperformed taking care to protect the surrounding soft tissues. AP sizing jigwas applied and set for a size 4 femoral component. 3 degrees of externalrotation were dialed in then the 4-in-1 block applied. Anterior posterior andchamfer cuts were then performed taking care to protect the surrounding softtissues. The notch osteotomy jig was applied and the notch osteotomy performedand checked with the file. Next we exposed the proximal tibia use the extramedullary alignment jig to estimate being parallel to the mechanical axis ofthe tibia. We referenced off the medial tibial condyle and set the jig at 4 mmresection level. Secondary check with extra medullary soumya was performed and weappeared to be parallel to the mechanical axis. The proximal tibial osteotomywas performed. Lamina budget record clerk was then placed medially and we performed acompletion lateral meniscectomy and debridement of the posterior lateralosteophytes. Then we placed the lamina budget record clerk laterally and performed acompletion medial meniscectomy and debridement of the posterior medialosteophytes. The sizing spacer was placed and 6 mm fit symmetrically to varusvalgus stress testing both in flexion and in extension. We then exposed theproximal tibia and sized for a #4 tibial tray. We reamed and broached andapplied the trial polyethylene. The trial femoral component was then appliedand the knee brought into extension. The patella was everted and the patellarosteotomy performed and sized for a 32 mm button. The lug holes were drilledthe trial was placed and the patellar tracking was anatomic.We drilled the lug holes for the femur then removed all the trial components.Exparel was then injected into the periosteal tissues on the distal femur andthe proximal tibia. We then prepared the bony surfaces for cementing with acopious amount of pulsatile lavage irrigant solution while my carpenter assistant installer mixedthe cement on the back table. Once all the bony surfaces were thoroughly driedwe cemented the tibial tray remove excess cement placed the polyethylene andcemented the femoral component removed excess cement then brought the knee intoextension and cemented the patellar button and held it with a clamp afterremoving the excess cement. We held this position while the cement hardenedand applied copious amount of pulsatile lavage irrigant solution once again.Tranxemic acid was then applied into the knee and then we began closing thecapsulotomy with two #1 PDS sutures proximally and one at the medialparapatellar junction. A double-armed #1 strata fix suture was used to closethe capsule then the tourniquet was released. We copiously irrigated onceagain and then closed the deep subdermal tissues with interrupted 2-0 PDSsuture and the skin was closed with silvia cove red by an Optifoam and a drysterile bulky dressing she was then transferred to the recovery room stablecondition there are no intraoperative complications.CYNTHIA Alvarado was critical to the success of the difficult procedure byhelping with appropriate soft tissue management, flexing and extending the kneeas needed, helping to prepare the patient for surgery, helping to close thewound, help to mixed the cement amongst many other tasks to allow me to performthe operation smoothly efficiently and safely.Copy to Dr. CarterVermont State Hospitalvivian to Family ProviderDATE SIGNED: 04/07/21 Electronically SignedTIME SIGNED: 925 NATALIYA VILLARREAL MD Name Value Range Interpretation Code Description Data Rachel rce(s) Supporting Document(s) ID Date Data Source [id number] 04/02/2021 10:02:00 AM EDT [place] [facility]) Name Value Range Interpretation Code Description Data Rachel rce(s) Supporting Document(s) Laboratory test finding (navigational concept) Laboratory test result [facility]) ID Date Data Source [id number] 04/02/2021 01:00:00 PM EDT [facility] Name Value Range Interpretation Code Description Data Rachel rce(s) Supporting Document(s) BLOOD TYPE A POSITIVE N [facility] ID Date Data Source [id number] 04/02/2021 10:00:00 AM EDT [place] ([facility]) Name Value Range Interpretation Code Description Data Rachel rce(s) Supporting Document(s) Blood Type Laboratory test result [facility]) Antibody Screen Laboratory test result [facility]) ID Date Data Source [id number] 04/02/2021 12:04:00 PM EDT [facility] Is patient going to surgery? Y: NHave you ever had a blood transfusion? NHave you had a blood transfusion within the last 3 months? NWhen is the date of your surgery? 04/07/21 Name Value Range Interpretation Code Description Data Rachel rce(s) Supporting Document(s) BLOOD TYPE A POSITIVE N [facility] ANTIBODY SCREEN NEGATIVE N [facility] ID Date Data Source [id number] 04/02/2021 08:30:00 AM EDT [facility] ([facility]) Name Value Range Interpretation Code Description Data Rachel rce(s) Supporting Document(s) [id number] Rheonix Laboratory test result [place] ([facility]) The Rheonix COVID-19 MDx Assay is an end point RT-PCR assay intended for the qualitative detection [...] Food and Drug Administration's Emergency Use Authorization. ID Date Data Source [id number] 04/02/2021 08:30:00 AM EDT [facility] Name Value Range Interpretation Code Description Data Rachel rce(s) Supporting Document(s) LCOVID-19 RHEONIX ASSAY Negative [facility] This lab was ordered by [facility] and reported by [facility]. ID Date Data Source [id number] 04/03/2021 09:08:00 PM EDT [facility] COMMENTS TO LAB: PREOP TESTINGLAB Con't: 45Is patient suspicious of Covid NShould patient be placed on Covid precautions N Name Value Range Interpretation Code Description Data Rachel rce(s) Supporting Document(s) COVID19 RHEONIX Negative NEGATIVE N [facility] The Rheonix COVID-19 MDx Assay is an end point RT-PCR assayintended for the qualitative detection of nucleic acid mcbsEXEM-MhC-8 virus. Positive results are indicative of thepresence of SARS-CoV-2 RNA; clinical correlation withpatient history and other diagnostic information isnecessary to determine patient infection status. Negativeresults do not preclude SARS-CoV-2 infection and should notbe used as the sole basis for patient management decisions. The Rheonix MDx Assay is only for use under the Food andDrug Administration's Emergency Use Authorization. ID Date Data Source [id number] 03/25/2021 08:52:00 AM EDT [facility] ([facility]) Name Value Range Interpretation Code Description Data Rachel rce(s) Supporting Document(s) Blood Urea Nitrogen 23 mg/dL 7-18 [facility] ([facility]) Glucose, Fasting 83 mg/dL 70-100 [facility] ([facility] ) Glomerular Filtration Rate 51.5 [facility] ([facility] ) <content>Units are mL/min/1.73 m2</content>
<content></content>
<content>Chronic Kidney Disease Staging per NKF:</content>
<content></content>
<content>Stage I & II GFR >=60 Normal to Mildly Decreased</content>
<content>Stage III GFR 30- 59 Moderately Decreased</content>
<content>Stage IV GFR 15-29 Severely Decreased</content>
<content>Stage V GFR <15 Very Little GFR Left</content>
<content>ESRD GFR <15 on [employer]IFF</content>
<content></content> Creatinine For GFR 1.10 mg/dL 0.55-1.30 [facility] ([facility] ) Potassium Serum 4.6 meq/L 3.5-5.1 [facility] ([facility] ) Sodium Level 140 meq/L 136-145 [facility] ([facility]) Carbon Dioxide Level 26 meq/L 21-32 [facility] ([facility]) Chloride Level 110 meq/L 98-107 [facility] ([facility]) Anion Gap 4 meq/L 8-16 [facility] ([facility]) Calcium Level 8.9 mg/dL 8.8-10.2 [facility] ([facility]) Alt/SGPT 20 U/L 12-78 [facility] ([facility]) Ast/Sgot 14 U/L 7-37 [facility] Alkaline Phosphatase 71 U/L 45-117 [facility] ([facility]) Bilirubin,Total 0.4 mg/dL 0.2-1.0 [facility] ([facility]) Albumin 3.7 GM/DL 3.2-5.2 [facility]) Total Protein 6.7 GM/DL 6.4-8.2 [facility] ([facility]) Albumin/Globulin Ratio 1.2 1.2-2.2 [facility] ([facility]) ID Date Data Source [id number] 03/25/2021 08:52:00 AM EDT [facility] ([facility]) Name Value Range Interpretation Code Description Data Rachel rce(s) Supporting Document(s) Erythrocyte sedimentation rate by Westergren method 35 mm/hr 0-30 [facility] ([facility]) ID Date Data Source [id number] 03/25/2021 08:52:00 AM EDT [facility] ([facility]) Name Value Range Interpretation Code Description Data Rachel rce(s) Supporting Document(s) White Blood Count 4.9 10 4.0-10.0 [facility] ([facility]) Red Blood Count 3.71 10 4.00-5.40 [facility] ([facility]) Hemoglobin 11.2 g/dL 12.0-15.5 [facility] ([facility]) Hematocrit 36.1 % 36.0-47.0 [facility] ([facility]) Mean Corpuscular Hemoglobin 30.2 pg 27.0-33.0 [facility] ([facility]) Mean Corpuscular Volume 97.3 fl 80.0-96.0 M [facility] ([facility]) Red Cell Distribution Width 13.1 % 11.5-14.5 [facility] ([facility]) Mean Corpuscular HGB Conc 31.0 g/dL 32.0-36.5 [facility] ([facility]) Platelet Count, Automated 347 10 150-450 [facility] ([facility]) Nucleated Red Blood Cell % 0.0 % 0-0 [facility] ([facility]) ID Date Data Source [id number] 03/25/2021 08:52:00 AM EDT [facility] ([facility]) Name Value Range Interpretation Code Description Data Rachel rce(s) Supporting Document(s) Prothrombin Time 12.5 s 12.7-14.5 [facility] ([facility]) Inr 0.89 [facility] THERAPUTIC HUMAN INR VALUES INDICATIONS NORMAL RANGES PROPHYLAXIS/TREATMENT OF: VENOUS THROMBOSIS 2.0-3.0 PULMONARY EMBOLISM 2.0-3.0 PREVENTION OF SYSTEMIC EMBOLISM FROM: TISSUE HEART VALVES 2.0-3.0 ACUTE MYOCARDIAL INFARCTION 2.0-3.0 VALVULAR HEART DISEASE 2.0-3.0 ATRIAL FIBRILLATION 2.0-3.0 MECHANICAL VALVES(HIGH RISK) 2.5-3.5 RECURRENT MYOCARDIAL INFARCTION 2.5-3.5 ID Date Data Source [id number] 09/10/2020 03:09:00 [place] [address] OPERATIVE SUMMARYNAME: KARIS MOORE DATE OF : 1945TTENDING PHYS: Denis Choudhury MD DATE: 09/03/20 MR#: [id number] PROCEDURE: 09/03/20PREOPERATIVE DIAGNOSIS: Ptosis both upper lids.POSTOPERATIVE DIAGNOSIS: Repair ptosis bilateral upper lids with reattachment of leva toraponeurosis.SURGEON: Denis Choudhury MD.NAIL TECHNICIAN: None.COMPLICATIONS: None.DETAIL OF PROCEDURE:Patient was brought to the operating room and laid in supine position. Upper face was prepped anddraped in a sterile fashion for upper lid surgeries. Both upper lids were marked with a sterilemarker along the lines of proposed skin excision with the help of the electrocautery. Both upperlids were infiltrated with 2% lidocaine with 1:100,000 epinephrine followed by gentle massage.Attention was then diverted to the right upper lid, where the pre- marked skin was excised using theelectrocautery. Hemostasis was obtained as necessary. After the excision of the skin, deeperdissection was carried out to isolate the medial and lateral fat pads, which were then cauterized atthe base. Deeper dissection revealed dehiscence of the levator aponeurosis, which was reattachedusing 6-0 nylon sutures. The wound was closed in two layers, the deeper layer was closed using 6-0Vicryl and the superficial skin was closed usi ng 6-0 nylon suture. Exactly the same procedure wasrepeated for the right upper lid. After the surgery ice packs were applied, Ciloxan ointment wasapplied to the wound. Patient was returned to the recovery room, where detailed instructions weregiven.DD: Denis Choudhury MD 09/09/20 18:19DT: JARRETT 09/10/20 15:04DS: Denis Choudhury MD 10/08/20 15:20 1 Name Value Range Interpretation Code Description Data Rachel rce(s) Supporting Document(s) ID Date Data Source [id number] 08/29/2020 03:03:00 PM EST [facility] Name Value Range Interpretation Code Description Data Rachel rce(s) Supporting Document(s) SARS-CoV-2 (COVID-19) Negative [facility] This lab was ordered by [place] for [facility] and reported by [facility]. ID Date Data Source HEPATITIS C VIRUS AB SCRN MEDICARE 08/05/2020 12:00:00 AM ES T eCW1 ([facility]) Name Value Range Interpretation Code Description Data Rachel rce(s) Supporting Document(s) 0.1 <0.8 HEP C VIRUS AB SCREEN MED ICARE eCW1 ([facility]) ID Date Data Source LIPID PANEL (CARDIAC RISK) 08/05/2020 12:00:00 AM EST eCW1 ( [facility]) Name Value Range Interpretation Code Description Data Rachel rce(s) Supporting Document(s) Triglyceride [Mass/volume] in Serum or Plasma by calculation 138 <150 TRIGLYCERIDES LEVEL eCW1 ([facility]) Cholesterol [Moles/volume] in Serum or Plasma 268 <200 CHOLESTEROL LEVEL eCW1 ([facility]) Cholesterol in HDL [Moles/volume] in Serum or Plasma 80 >40 HDL CHOLESTEROL eCW1 ([facility]) Cholesterol in LDL [Mass/volume] in Serum or Plasma by calculation 160 <100 LDL CHOLESTEROL eC1 ([facility]) 188 NON-HDL-C eCW1 ([facility]) 3.350 <5 CHOLESTEROL RISK RATIO eCW1 ([facility]) ID Date Data Source MAGNESIUM LEVEL 08/05/2020 12:00:00 AM EST eCW1 ([facility]) Name Value Range Interpretation Code Description Data Rachel rce(s) Supporting Document(s) 1.7 1.8-2.4 MAGNESIUM LEVEL eCW1 ([facility]) ID Date Data Source Comprehensive Metabolic Profile (CMP) 08/05/2020 12:00:00 AM EST eCW1 ([facility]) Name Value Range Interpretation Code Description Data Rachel rce(s) Supporting Document(s) 23 7-18 BLOOD UREA NITROGEN eCW1 ([facility]) 78 70-100 GLUCOSE, FASTING eCW1 ([facility]) 53.4 >39 GLOMERULAR FILTRATION RATE eCW 1 ([facility]) 1.07 0.55-1.30 CREATININE FOR GFR eCW1 ([facility]) 4.3 3.5-5.1 POTASSIUM SERUM eCW1 ([facility]) 141 136-145 SODIUM LEVEL eCW1 ([facility]) 103 98-107 CHLORIDE LEVEL eCW1 ([facility]) 30 21-32 CARBON DIOXIDE LEVEL eCW1 ([facility]) 13 7-37 AST/SGOT eCW1 ([facility]) 10.0 8.8-10.2 CALCIUM LEVEL eCW1 ([facility]) 68 45-117 ALKALINE PHOSPHATASE eCW1 ([facility]) 20 12-78 ALT/SGPT eCW1 ([facility]) 0.4 0.2-1.0 BILIRUBIN,TOTAL eCW1 ([facility]) 6.9 6.4-8.2 TOTAL PROTEIN eCW1 ([facility]) 4.0 3.2-5.2 ALBUMIN eCW1 ([facility]) 1.4 1.2-2.2 ALBUMIN/GLOBULIN RATIO eCW1 ([facility]) ID Date Data Source CBC with Differential 08/05/2020 12:00:00 AM EST eCW1 ([facility]) Name Value Range Interpretation Code Description Data Rachel rce(s) Supporting Document(s) 5.1 4.0-10.0 WHITE BLOOD COUNT eCW1 ([facility]) 35.5 36.0-47.0 HEMATOCRIT eCW1 ([facility]) 11.5 12.0-15.5 HEMOGLOBIN eCW1 ([facility]) 3.66 4.00-5.40 RED BLOOD COUNT eCW1 ([facility]) 97.0 80.0-96.0 MEAN CORPUSCULAR VOLUME e CW1 ([facility]) 32.4 32.0-36.5 MEAN CORPUSCULAR HGB CONC eCW1 ([facility]) 31.4 27.0-33.0 MEAN CORPUSCULAR HEMOGLOB IN eCW1 ([facility]) 327 150-450 PLATELET COUNT, AUTOMATED eCW1 ([facility]) 12.7 11.5-14.5 RED CELL DISTRIBUTION WID TH eCW1 ([facility]) 55.1 36.0-66.0 NEUTROPHILS % eCW1 ([facility]) 30.6 24.0-44.0 LYMPH % eCW1 ([facility]) 2.6 0.0-3.0 EOS % eCW1 ([facility]) 10.3 0.0-5.0 MONO % eCW1 ([facility]) 1.2 0.0-1.0 BASO % eCW1 ([facility]) 1.6 1.5-5.0 LYMPH # eCW1 ([facility]) 2.8 1.5-8.5 NEUTROPHILS # eCW1 ([facility]) 0.1 0.0-0.5 EOS # eCW1 ([facility]) 0.5 0.0-0.8 MONO # eCW1 ([facility]) 0.1 0.0-0.2 BASO # eCW1 ([facility]) ID Date Data Source Basic Metabolic Profile (BMP) 04/14/2020 08:32:21 AM EDT eCW 1 ([facility]) Name Value Range Interpretation Code Description Data Rachel rce(s) Supporting Document(s) 1.15 CREATININE FOR GFR eCW1 ([facility]) 76 GLUCOSE, FASTING eCW1 ([facility]) 22 BLOOD UREA NITROGEN eCW1 ([facility]) 4.4 POTASSIUM SERUM eCW1 ([facility]) 49.1 GLOMERULAR FILTRATION RATE eCW 1 ([facility]) 140 SODIUM LEVEL eCW1 ([facility]) 106 CHLORIDE LEVEL eCW1 ([facility]) 28 CARBON DIOXIDE LEVEL eCW1 ([facility]) 9.4 CALCIUM LEVEL eCW1 ([facility]) ID Date Data Source FERRITIN 04/14/2020 08:30:45 AM EDT eCW1 ([facility]) Name Value Range Interpretation Code Description Data Rachel rce(s) Supporting Document(s) 49 FERRITIN eCW1 ([facility]) ID Date Data Source TOTAL IRON BINDING CAPACIT 04/14/2020 08:30:22 AM EDT eCW1 ( [facility]) Name Value Range Interpretation Code Description Data Rachel rce(s) Supporting Document(s) 68 IRON (FE) eCW1 ([facility]) 282 TOTAL IRON BINDING CAPACITY eC W1 ([facility]) 24.1 PERCENT SATURATION eCW1 ([facility]) Procedure Social History No Information Vital Signs ID Date Data Source UNK Name Value Range Interpretation Code Description Data Source(s) Body temperature 97.5 [degF] 97.5 [degF] [facility] ([facility] Body height 63.5 [in_i] 63.5 [in_i] [facility] ([facility] 5'3.50" Systolic blood pressure 120 mm[Hg] 120 mm[Hg] M EDENT ([facility] ) Body weight 153.00 [lb_av] 153.00 [lb_av] MEDEN T ([facility] ) Body mass index (BMI) [Ratio] 26.7 kg/m2 26.7 k g/m2 [facility] ([facility]) Respiratory rate 16 /min 16 /min [facility] ( [facility]) Diastolic blood pressure 70 mm[Hg] 70 mm[Hg] [facility] ([facility]) Heart rate 80 /min 80 /min [facility] ([facility]) Body temperature 96.6 [degF] 96.6 [degF] [facility] ([facility]) Body weight 153.0 [lb_av] 153.0 [lb_av] eCW1 ([facility]) Body height 65 [in_i] 65 [in_i] eCW1 ([facility]) Body mass index (BMI) [Ratio] 25.46 kg/m2 25.46 kg/m2 eCW1 ([facility]) Heart rate 87 /min 87 /min eCW1 ([facility]) Respiratory rate 18 /min 18 /min eCW1 ([facility]) Body temperature 97.3 [degF] 97.3 [degF] eCW1 ( [facility]) Systolic blood pressure 116 mm[Hg] 116 mm[Hg] e CW1 ([facility]) Diastolic blood pressure 72 mm[Hg] 72 mm[Hg] eCW1 ([facility]) Body temperature 97.1 [degF] 97.1 [degF] [facility] ([facility]) Body height 63 [in_i] 63 [in_i] [facility] ([facility]) 5'3" Body weight 150.12 [lb_av] 150.12 [lb_av] MEDEN T ([facility]) Body mass index (BMI) [Ratio] 26.6 kg/m2 26.6 k g/m2 [facility] ([facility]) Body weight 152 [lb_av] 152 [lb_av] eCW1 ([facility]) Body weight 68.95 kg 68.95 kg eCW1 ([facility]) Body height 65 [in_i] 65 [in_i] eCW1 ([facility]) Body mass index (BMI) [Ratio] 25.29 kg/m2 25.29 kg/m2 eCW1 ([facility]) Heart rate 74 /min 74 /min eCW1 ([facility]) Respiratory rate 18 /min 18 /min eCW1 ([facility]) Body temperature 97.7 [degF] 97.7 [degF] eCW1 ( [facility]) Systolic blood pressure 132 mm[Hg] 132 mm[Hg] e CW1 ([facility]) Diastolic blood pressure 62 mm[Hg] 62 mm[Hg] eCW1 ([facility]) Body weight 150.0 [lb_av] 150.0 [lb_av] [facility] ([facility] [facility]) Body mass index (BMI) [Ratio] 24.96 kg/m2 24.96 kg/m2 eCW1 ([facility]) Heart rate 97 /min 97 /min eCW1 ([facility], [facility]) Respiratory rate 18 /min 18 /min eCW1 ([facility]) Body temperature 97.0 [degF] 97.0 [degF] eCW1 ( [facility]) Body height 65 [in_i] 65 [in_i] eCW1 ([facility]) Systolic blood pressure 122 mm[Hg] 122 mm[Hg] e CW1 ([facility]) Diastolic blood pressure 58 mm[Hg] 58 mm[Hg] eCW1 ([facility]) Body weight 152 [lb_av] 152 [lb_av] eCW1 ([facility]) Body weight 68.95 kg 68.95 kg eCW1 ([facility]) Body height 65 [in_i] 65 [in_i] eCW1 ([facility]) Body mass index (BMI) [Ratio] 25.29 kg/m2 25.29 kg/m2 eCW1 ([facility]) Systolic blood pressure 117 mm[Hg] 117 mm[Hg] e CW1 ([facility]) Diastolic blood pressure 78 mm[Hg] 78 mm[Hg] eCW1 ([facility]) Body weight 150.6 [lb_av] 150.6 [lb_av] eCW1 ([facility]) Body height 65 [in_i] 65 [in_i] eCW1 ([facility]) Body mass index (BMI) [Ratio] 25.06 kg/m2 25.06 kg/m2 eCW1 ([facility]) Heart rate 92 /min 92 /min eCW1 ([facility]) Respiratory rate 18 /min 18 /min eCW1 ([facility]) Body temperature 97.7 [degF] 97.7 [degF] eCW1 ( [facility]) Systolic blood pressure 128 mm[Hg] 128 mm[Hg] e CW1 ([facility]) Diastolic blood pressure 70 mm[Hg] 70 mm[Hg] eCW1 ([facility]) Body temperature 97.5 [degF] 97.5 [degF] MEDENT ([facility]) Body mass index (BMI) [Ratio] 25.7 kg/m2 25.7 k g/m2 MEDENT ([facility]) Body weight 150.00 [lb_av] 150.00 [lb_av] MEDEN T ([facility]) Body height 64 [in_i] 64 [in_i] MEDENT ([facility]) 5'4" ID Date Data Source [id number] 04/12/2021 02:10:00 AM EDT [facility] Name Value Range Interpretation Code Description Data Source(s) WEIGHT 69.54 kilos 69.54 kilos [facility] HEIGHT 162.56 centimeters 162.56 centimeter [facility] ID Date Data Source [id number] 10/08/2020 03:22:06 PM EDT [facility] Name Value Range Interpretation Code Description Data Source(s) WEIGHT RECORDED 154.00 pounds 154.00 pounds [facility] Height 60 Inches 060 Inches [facility] Patient Treatment Plan of Care Planned Activity Planned Date Details Description Data Source (s) 24 HR Bupropion Hydrochloride 150 MG Extended Release Oral Tablet [Wellbutrin] 12/24/2020 12:00:00 AM EDT eCW1 ([facility])
[2021-05-16] MEDS ORDERED: GI COCKTAIL 50ML BTL(HYOSCYAMINE/MAALOX/LIDOCAINE VISCOUS)(1:3:1) PO ONE (12:30)
[2021-05-16] MEDS ORDERED: PANTOPRAZOLE 40MG VIAL (C9113 PER 1) IV ONE (12:30)
[2021-05-16 13:08] LABS: BASO # 0.1 10^3/uL (0.0-0.2); BASO % 0.7 % (0.0-1.0); EOS # 0.1 10^3/uL (0.0-0.5); EOS % 1.2 % (0.0-3.0); HEMATOCRIT 31.2 % (36.0-47.0); HEMOGLOBIN 10.4 g/dl (12.0-15.5); LYMPH # 0.9 10^3/uL (1.5-5.0); LYMPH % 11.6 % (24.0-44.0); MEAN CORPUSCULAR HGB CONC 33.3 g/dl (32.0-36.5); MEAN CORPUSCULAR VOLUME 93.1 fl (80.0-96.0); MONO # 0.6 10^3/uL (0.0-0.8); MONO % 7.7 % (2.0-8.0); NEUTROPHILS # 5.8 10^3/uL (1.5-8.5); NEUTROPHILS % 78.4 % (36.0-66.0); PLATELET COUNT, AUTOMATED 365 10^3/uL (150-450); RED BLOOD COUNT 3.35 10^6/uL (4.00-5.40); WHITE BLOOD COUNT 7.4 10^3/uL (4.0-10.0)
[2021-05-16 13:34] LABS: ALBUMIN 3.6 GM/DL (3.2-5.2); BILIRUBIN,DIRECT 0.2 MG/DL (0.0-0.2); BILIRUBIN,TOTAL 0.4 MG/DL (0.2-1.0); CALCIUM LEVEL 9.2 MG/DL (8.8-10.2); CREATININE FOR GFR 1.17 MG/DL (0.55-1.30); POTASSIUM SERUM 3.8 MEQ/L (3.5-5.1); TOTAL PROTEIN 6.6 GM/DL (6.4-8.2)
[2021-05-16 13:35] LABS: CK-MB VALUE MASS < 1.0 NG/ML (<3.6); CPK CREATINE PHOSPHOKINASE 91 U/L (26-192); TROPONIN I < 0.02 NG/ML (< 0.10)
[2021-05-16] MEDS: GASTROGRAFIN SOLUTION 30ML PO SCH ×2 (13:48→14:16)
[2021-05-16] MEDS ORDERED: ISOVUE-370 76% 100ML VIAL As Ordered ONE (14:18)
--- OUTSIDE RECORDS SUMMARY | 2021-05-16 14:30 | CCD ---
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 [employer] Name Role Phone NO, PCP Unavailable Unavailable Fish Yumiko [facility], PA-C Unavailable Unavailabl e Fish, [facility], PA-C Unavailable Unavailabl e Fish, [facility], PA-C Unavailable Unavailabl e Fish, [facility], PA-C Un[facility] Unavailable Unavailabl e Fish, [facility], PA-C Unavailable Unavailabl e Fish, [facility], PA-C Unavailable Unavailabl e Fish, [facility], PA-C Unavailable Unavailabl e Fish, [facility], PA-C Unavailable Unavailabl e Fish, [facility], PA-C Unavailable Unavailabl e Fish, [facility], PA-C Unavailable Unavailabl e Fish, [facility], PA-C Unavailable Unavailabl e Fish, [facility], PA-C Unavailable Unavailabl e Fish, [facility], PA-C Unavailable Unavailabl e Fish, [facility], PA-C Unavailable Unavailabl e Fish, [facility], PA-C Unavailable Unavailabl e Fish, [facility], PA-C Unavailable Unavailabl e Fish, [facility], PA-C Unavailable Unavailabl e Fish, [facility], PA-C Unavailable Unavailabl e Fish, [facility], PA-C Unavailable Unavailabl e Fish, [facility], PA-C Unavailable Unavailabl e Fish, [facility], PA-C Unavailable Unavailabl e Fish, [facility], PA-C Unavailable Unavailabl e Fish, [facility], PA-C Unavailable Unavailabl e Fish, [facility], PA-C Unavailable Unavailabl e Fish, [facility], PA-C Unavailable Unavailabl e Fish, [facility], PA-C Unavailable Unavailabl e Fish, [facility], PA-C Unavailable Unavailabl e Fish, [facility], PA-C Unavailable Unavailabl e Fish, [facility], PA-C Unavailable Unavailabl e Fish, [facility], PA-C Unavailable Unavailabl e Fish, [facility], PA-C Unavailable Unavailabl e Fish, [facility], PA-C Unavailable Unavailabl e Fish, [facility], PA-C Unavailable Unavailabl e Fish, [facility], PA-C Unavailable Unavailabl e Fish, [facility], PA-C Unavailable Unavailabl e IAMHERSALENA LAZCANO PA [...] Unavailable MCELHERAN, SALENA PA Unavailable Unavailable MCELHERAN, SALNEA PA Unavailable Unavailable MCELHERAN, SALENA PA Unavailable [...] Unavailable Purdy, M Barratt PA Unavailable Unavailable Calrence Purdyatt PA Unavailable Unavailable Clarence Purdy PA [...] is protected by Article 27-F of the [facility] Public Health law. If you continue you may have access to information: Regarding HIV / AIDS; Provided by facilities licensed or operated by the [facility] Office of Mental Health; or Provided by the [facility] Office for People With Developmental Disabilities. If such information is present, then the following [facility] mandated warning applies: This information has been [...] law may result in a fine or care home sentence or both. A general authorization for [...] [facility] Drug allergy SULFA SULFA [facility] allergy penicillan g penicillan g [facility] Propensity to adverse reactions SULFA (sulfonamide) SULFA (sulfonamid e) [facility] Family History Family Member Name Family Member Gender Family Member Status Date o f Status Description Data Source(s) Unknown Male Problem [facility] ([facility]) Unknown Female Problem MEDENT ([facility]) Unknown Female Problem MEDENT ([facility]) Unknown Unknown Problem [facility] ([facility]) Unknown Unknown Problem MED[facility] ([facility]) Unknown Unknown Problem MED[facility] ([facility]) Encounters Encounter Providers Location Date Indications Data Source(s ) [place] [address] [facility] [address] [address] 05/14/2021 12:00:00 AM EST eCW1 (Critical access hospital) [place] [address] [address] 05/11/2021 12:00:00 AM EST eCW1 (Critical access hospital) Office Visit Attender: Brandon Villarreal MD Physical Therap y 04/21/2021 08:15:00 AM EDT MEDENT ([facility]) Outpatient Attender: Brandon Villarreal MD ER-ASUR 04/07/2021 12:45:00 AM EDT - 04/08/2021 09:23:00 AM EDT [facility] Patient discharged. Preadmit Attender: Brandon Villarreal MD ER-OPS 04/02/2021 08: 30:00 AM EDT [facility] Office Visit Attender: Violeta WALLS PA-C Physical Therapy 04/01/2021 10:00:00 AM EDT MED[facility] ([facility]) [place] [address] [facility] [address] 03/25/2021 12:00:00 AM EDT [facility] OFFICE OUTPATIENT VISIT 15 MINUTES Attender: SALENA MARIE Physical Therapy 03/03/2021 04:45:00 PM EDT MEDENT ([facility]) Outpatient Attender: Brandon Villarreal MD Physical Therap y 02/13/2021 09:15:00 AM EDT MED[facility] ([facility]) [place] [address] [facility] [address] 02/09/2021 12:00:00 AM EDT [facility]CW[facility] [place] [address] [facility] [address] 12/24/2020 12:00:00 AM EDT eCW1 (Critical access hospital) Outpatient Attender: Brandon Villarreal MD Physical Therap y 12/22/2020 02:15:00 PM EDT MEDENT ([facility]) OFFICE OUTPATIENT VISIT 15 MINUTES Attender: SALENA MARIE Physical Therapy 11/12/2020 10:15:00 AM EDT MEDENT ([facility]) Outpatient Attender: Denis Choudhury MDConsultant: PCP NO 09/03/2020 12:15:00 PM EST - 09/03/2020 03:45:00 PM EST [facility] Patient discharged. Outpatient Attender: Denis Choudhury MDConsultant: PCP NO 08/27/2020 09:28:36 AM EST - 09/02/2020 07:32:00 AM EST [facility] Patient discharged. [place] [address] [facility] [address] 08/11/2020 12:00:00 AM EST [facility] [place] [address] [facility] [address] 08/05/2020 12:00:00 AM EST eCW1 (Critical access hospital) Outpatient Attender: SALENA MARIE Physical Therapy 07/30/2020 10:15:00 AM EST MED[facility] ([facility]) Unknown [address] [facility] [address] 07/30/2020 12:00:00 AM EST eCW1 (Critical access hospital) Unknown [address] [facility] [address] 06/16/2020 12:00:00 AM EST eCW1 (Critical access hospital) Unknown [address] [facility] [address] 06/13/2020 12:00:00 AM EST eCW1 (Critical access hospital) Office Visit Attender: SALENA MARIE Physical Therapy 06/06/2020 12:45:00 PM EST MEDENT ([facility]) ( GYNANN) [facility] 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 [address] [place] [address] 05/20/2020 12:00:00 AM EST eCW1 ([facility]) Office Visit Attender: SALENA MARIE Physical Therapy 04/23/2020 03:15:00 PM EDT MEDENT ([facility]) Office Visit, Est Pt., Level 2 FC [address] [place] [address] 04/08/2020 12:00:00 AM EDT eCW1 ([facility]) OFFICE OUTPATIENT VISIT 15 MINUTES Attender: Ramandeep MARIE Physical Therapy 04/04/2020 09:30:00 AM EDT MEDENT ([facility]) Unknown [address] [facility] [address] 04/03/2020 12:00:00 AM EDT eCW1 (Critical access hospital) Unknown [address] [facility] [address] 04/03/2020 12:00:00 AM EDT eCW1 (Critical access hospital) Unknown [address] [facility] [address] 04/03/2020 12:00:00 AM EDT eCW1 (Critical access hospital) Immunizations Vaccine Date Status Description Data Source(s) COVID-19 dose #2 given elsewhere Unspecified 08/09/2020 06:2 6:00 AM EST completed eCW1 (Critical access hospital) COVID-19 dose #2 given elsewhere Unspecified 08/09/2020 06:2 6:00 AM EST completed eCW1 (Critical access hospital) COVID-19 dose #2 given elsewhere Unspecified 08/09/2020 06:2 6:00 AM EST completed eCW1 (Critical access hospital) COVID-19 dose #2 given elsewhere Unspecified 08/09/2020 06:2 6:00 AM EST completed eCW1 (Critical access hospital) COVID-19 VACCINE Moderna 08/09/2020 12:00:00 AM EST completed [facility] Vaccine Series Complete: YESThis Data wa s Submitted to [facility] Via [employer]. COVID-19 dose #1 given elsewhere Unspecified 07/12/2020 09:0 7:00 AM EST completed eCW1 (Critical access hospital) COVID-19 dose #1 given elsewhere Unspecified 07/12/2020 09:0 7:00 AM EST completed eCW1 (Critical access hospital) COVID-19 dose #1 given elsewhere Unspecified 07/12/2020 09:0 7:00 AM EST completed eCW1 (Critical access hospital) COVID-19 dose #1 given elsewhere Unspecified 07/12/2020 09:0 7:00 AM EST completed eCW1 (Critical access hospital) COVID-19 VACCINE Moderna 07/12/2020 12:00:00 AM EST completed [facility] Vaccine Series Complete: NOThis Data was Submitted to [facility] Via [employer]. COVID-19 dose #1 given elsewhere Unspecified 07/11/2020 09:0 7:00 AM EST completed eCW1 (Critical access hospital) COVID-19 dose #1 (given elsewhere) Unspecified 07/11/2020 09 :07:00 AM EST completed eCW1 (Critical access hospital) COVID-19 dose #1 (given elsewhere) Unspecified 07/11/2020 09 :07:00 AM EST completed eCW1 (Critical access hospital) IIV3. This is one of two codes replacing CVX 15, which is being retired. 04/02/2020 09:07:00 AM EDT completed eCW1 ([facility]) IIV3. This is one of two codes replacing CVX 15, which is being retired. 04/02/2020 09:07:00 AM EDT completed eCW1 ([facility]) IIV3. This is one of two codes replacing CVX 15, which is being retired. 04/02/2020 09:07:00 AM EDT completed eCW1 ([facility]) IIV3. This is one of two codes replacing CVX 15, which is being retired. 04/02/2020 09:07:00 AM EDT completed eCW1 ([facility]) IIV3. This is one of two codes replacing CVX 15, which is being retired. 04/02/2020 09:07:00 AM EDT completed eCW1 ([facility]) IIV3. This is one of two codes replacing CVX 15, which is being retired. 04/02/2020 09:07:00 AM EDT completed eCW1 ([facility]) IIV3. This is one of two codes replacing CVX 15, which is being retired. 04/02/2020 09:07:00 AM EDT completed eCW1 ([facility]) Medications Medication Brand Name Start Date Product Form Dose Route Admi nistrative Instructions Pharmacy Instructions Status Indications Reaction Description Data Source(s) Mupirocin 0.02 MG/MG Topical Ointment Mupirocin 02/25/2021 12:00:00 AM EDT active [facility] 240 mcg/0.7 mL 02/25/2021 12:00:00 AM EDT syringe 0 DIRECTED DIRECTED SOLD: 02/25/2021 [facility] Acetaminophen 325 MG / Hydrocodone Bitartrate 5 MG Ora l Tablet Hydrocodone Bitartrate/Acetaminophen 02/25/2021 12:00:00 AM EDT ORAL active MEDENT ([facility] ) chlorhexidine gluconate 40 MG/ML Medicated Liquid Soap [Hibi clens] Hibiclens 02/25/2021 12:00:00 AM EDT active MED[facility] ([facility] ) 24 HR Bupropion Hydrochloride 150 MG Ext ended Release Oral Tablet [Wellbutrin] Wellbutrin XL 150 MG Wellbutrin XL 150 MG 12/24/2020 12:00:00 AM EDT 1.0 {tablet_in_the_morning} active Wellbutr in XL 150 MG eCW1 ([facility]) 0.3-0.1 % 09/03/2020 12:00:00 AM EST ointment [...] type / Coverage type Policy ID Covered green party ID Covered green party's relationship to morales Policy Morales Plan Information [facility] [employer]) Workers Compensation [id number] Self [employer] () Workers Compensation [id number] Self MEDICARE [id number] S [id number] U00 MEDICARE [id number] S [id number] MEDICARE [id number] S [id number] MEDICARE PART A -O/P [id number] 18 [id number] [facility] OPTIONS [id number] SP [id number] AAR O [id number] S [id number] MEDICARE C [id number] S [id number] U00 ANS-Medicare Part B [id number] ANSI-Commercial [id number] ANSI-Medicare Part B [id number] ANSI-Commercial [id number] ANSI-Commercial [id number] ANSI-Medicare Part B [id number] ANSI-Medicare Part B [id number] ANSI-Commercial [id number] [facility] OPTIONS [id number] SP [id number] ANSI-Medicare Part B [id number] ANSI-Commercial [id number] ANSI-Commercial [id number] ANSI-Medicare Part B [id number] [facility] Health Care Options [facility] Part B [id number] Self [id number] Medicare [place] Primary [id number] Self [id number] ANSI-Commercial [id number] ANSI-Medicare Part B [id number] ANSI-Medicare Part B [id number] ANSI-Commercial [id number] ANSI-Medicare Part B [id number] ANSI-Commercial [id number] MEDICARE [id number] A ANSI-Medicare Part B [id number] ANSI-Commercial [id number] [facility] OPTIONS [id number] SP [id number] [employer]VELERS NO FAULT [id number] SP [id number] Medicare [place] Medicare Primary [id number] Self MEDICARE C [id number] S [id number] A OTHER NO FAULT [id number] SP [id number] Medicare Nat[place] Gov't Servi Medicare Primary [id number] Self MEDICARE [id number] SP [id number] U00 [id number] A [facility] OPTIONS [id number] SP [id number] Problems, Conditions, and Diagnoses Code Display Name Description Problem Type Effective Dates Data Source(s) Z87.891 Personal history of nicotine dependence PERSONAL HISTORY OF NICOTINE DEPENDENCE Diagnosis 04/07/2021 12:45:00 AM EDT [facility] E78.00 PURE HYPERCHOLESTEROLEMIA, UNSPECIFIED P URE HYPERCHOLESTEROLEMIA, UNSPECIFIED Diagnosis 04/07/2021 12:45:00 AM T [facility] I10 Essential (primary) hypertension ESSENTIAL (PRIMARY) H YPERTENSION Diagnosis 04/07/2021 12:45:00 AM [facility] M17.11 Unilateral primary osteoarthritis, right knee UNILATERAL PRIMARY OSTEOARTHRITIS, RIGHT KNEE Diagnosis 04/07/2021 12:45:00 AM [facility] Z880 Allergy status to penicillin Allergy status to penicil yesika Diagnosis 09/03/2020 12:15:00 PM [facility] Z882 Allergy status to sulfonamides Allergy status to sulfo namides Diagnosis 09/03/2020 12:15:00 PM [facility] J14273 Family history of glaucoma Family history of glaucoma Diagnosis 09/03/2020 12:15:00 PM [facility] K219 Gastro-esophageal reflux disease without esophagitis Gastro-esophageal reflux disease without esophagitis Diagnosis 09/03/2020 12:15:00 PM [facility] I10 Essential (primary) hypertension Essential (primary) h ypertension Diagnosis 09/03/2020 12:15:00 PM [facility] E7800 Pure hypercholesterolemia, unspecified P ure hypercholesterolemia, unspecified Diagnosis 09/03/2020 12:15:00 PM [facility] 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, unspecified, bilateral Preglaucoma, unspecified, bilateral Diagnosis 09/03/2020 12:15:00 PM [facility] H58746 Keratoconjunctivitis sicca, not specifie d as Sjogren's, bilateral Keratoconjunctivitis sicca, not specified as Sjogren's, bilateral Diagnosis 09/03/2020 12:15:00 PM [facility] G17836 Dermatochalasis of left upper eyelid Jose matochalasis of left upper eyelid Diagnosis 09/03/2020 12:15:00 PM [facility] R85341 Dermatochalasis of right upper eyelid De rmatochalasis of right upper eyelid Diagnosis 09/03/2020 12:15:00 PM [facility] E93586 Mechanical ptosis of bilateral eyelids M echanical ptosis of bilateral eyelids Diagnosis 09/03/2020 12:15:00 PM [facility] R99 Ill-defined and unknown cause of mortali ty Ill-defined and unknown cause of mortality Diagnosis 09/02/2020 07:32:00 AM [facility] M17.11 [id number] Primary osteoarthritis of right knee P roblem 02/09/2021 12:00:00 AM EDT eCW1 ([facility]) Surgeries/Procedures Procedure Description Date Indications Data Source(s) THERAPEUTIC PX 1/> AREAS EACH 15 MIN EXERCISES 12:00:00 AM EST MEDENT ([facility] ) THERAPEUTIC PX 1/> AREAS EACH 15 MIN EXERCISES 12:00:00 AM EST MED[facility] ([facility] ) THERAPEUTIC PX 1/> AREAS EACH 15 MIN EXERCISES 12:00:00 AM EDT [facility] ([facility] ) THERAPEUTIC PX 1/> AREAS EACH 15 MIN EXERCISES 12:00:00 AM EDT MED[facility] ([facility] ) THERAPEUTIC PX 1/> AREAS EACH 15 MIN EXERCISES 12:00:00 AM EDT MED[facility] ([facility] ) THERAPEUTIC PX 1/> AREAS EACH 15 MIN EXERCISES 12:00:00 AM EDT MEDENT ([facility]) THERAPEUTIC PX 1/> AREAS EACH 15 MIN EXERCISES 12:00:00 AM EDT MEDENT ([facility]) THERAPEUTIC PX 1/> AREAS EACH 15 MIN EXERCISES 12:00:00 AM EDT MEDENT ([facility]) Physical Therapy Eval - Low Complexity 04/10/2021 12:0 0:00 AM EDT MEDENT ([facility]) ARTHRP KNE CONDYLE&PLATU MEDIAL&LAT CMPRTS 04/07/2021 12:00:00 AM EDT MEDENT ([facility]) ECG ROUTINE ECG W/LEAST 12 LDS W/I&R 03/25/2021 12:00: 00 AM EDT eCW1 ([facility]) ARTHROCENTESIS ASPIR&/INJECTION MAJOR JT/BURSA 12:00:00 AM EDT MEDENT ([facility]) OFFICE OUTPATIENT VISIT 15 MINUTES 03/03/2021 12:00:00 AM EDT MEDENT ([facility]) OFFICE OUTPATIENT VISIT 25 MINUTES 02/13/2021 12:00:00 AM EDT MEDENT ([facility]) ARTHROCENTESIS ASPIR&/INJECTION MAJOR JT/BURSA 12:00:00 AM EDT MEDENT ([facility]) X-Ray Hip Unilateral With Pelvis 2-3 Views 12/22/2020 12:00:00 AM EDT MEDENT ([facility]) OFFICE OUTPATIENT VISIT 25 MINUTES 12/22/2020 12:00:00 AM EDT MED[facility] ([facility]) RADIOLOGIC EXAM KNEE COMPLETE 4/MORE VIEWS 11/12/2020 12:00:00 AM EDT MED[facility] ([facility]) OFFICE OUTPATIENT VISIT 15 MINUTES 11/12/2020 12:00:00 AM EDT MED[facility] ([facility]) OFFICE OUTPATIENT VISIT 10 MINUTES 07/30/2020 12:00:00 AM EST MED[facility] ([facility]) ARTHROCENTESIS ASPIR&/INJECTION MAJOR JT/BURSA 12:00:00 AM EST MED[facility] ([facility]) ARTHROCENTESIS ASPIR&/INJECTION MAJOR JT/BURSA 020 12:00:00 AM EDT MED[facility] ([facility]) Results ID Date Data Source [id number] 04/08/2021 09:03:00 AM EDT [facility] [place], [place] [id number] SUMMARYPATIENT NAME: OSCAR BERRY MR#: [id number] PHYSICIAN: NATALIYA VILLARREAL, MDAUTHOR: Shen Greenberg MD DATE: #: ASURDISCHARGE DATE: 04/08/21 : 45Summary of HospitalizationReason for AdmissionRight knee pain chronicHospital Rpnnbb65 yo F who presented to the hospital [...] medicine to the pharmacy already.Procedures & Relevant StudiesStudiesALEXANDRIA, [place] [id number] CONSULTATIONDate of : 1945 Name: OSCAR BERRY LMedrec Number: [id number] Phys: NATALIYA VILLARREAL MDExraul Date: 04/07/2021 Location: 2EASTProcedure: KNEEL, KNEE LIMITED Rad Numb: [id number] \\EXAM# TYPE/EXAM [id number] DX/KNEE LIMITEDDATE OF EXAMINATION: 04/07/2021 9:24 EDTHISTORY: Knee prosthesisTECHNIQUE: 2 views right knee were obtained.FINDINGS:Total knee prosthesis is in excellent alignment. Postoperative softtissue emphysema and dorsal skin silvia are noted.IMPRESSION:Total knee prosthesis.Electronically signed in PS360 by: Keith Dietrich M.D. :35 EDT Reported By: Gabbi DIETRICH M.D.OUR RADIOLOGY DEPARTMENT IS ACCREDITED BY THE [employer] IN THE FOLLOWING MODALITIES:CT, MRI, NUCLEAR MEDICINE, PET/CT,MAMMOGRAPHY/STEREOTACTIC BIOPSY, & ULTRASOUNDCC: Zully VILLARREAL M.D.Procedure Start: 04/07/21 (925) Procedure Complete: 04/07/21 (925)Technologist: Toyin ONEILL(Katia)(CT)Transcribed Date/Time: 04/07/2021 (946)Director Of Counseling: XPrinted Date/Time: 04/08/2021 (906)PAGE 1 Signed Report [...] SPRAY.SUSP2 SPRAY Nasally DAILYATORVASTATIN (Lipitor*) 40 MG [id number] MILLIGRAM Orally AT BEDTIMEAMLODIPINE BESYLATE (NORVASC*) 5 MG TABLET5 MILLIGRAM Orally DAILYIRBESARTAN/HYDROCHLOROTHIAZIDE (Irbesartan-Hctz 300-12.5 MG Tb) 300 MG/12.5 MGTAB1 TABLET Orally DAILYMELOXICAM (MELOXICAM) 15 MG [id number] MILLIGRAM Orally DAILY as needed for PAIN, ARTHRITISFOLIC ACID* (Folvite*) 1 MG [id number] MILLIGRAM Orally DAILYStart taking the following new medications:ASPIRIN (Aspirin) 325 MG [id number] MILLIGRAM Orally TWICE DAILYDays = 14 Qty = 28No RefillsDischarge Activity: As toleratedDischarge diet: RegularFollow-upFollow up with your Primary care physician and with your orthopedic surgeonTime spent by provider to complete discharge > 30 minutesDATE SIGNED: 04/08/21 Electronically SignedTIME SIGNED: 1935 SHEN GREENBERG MD Name Value Range Interpretation Code Description Data Rachel rce(s) Supporting Document(s) ID Date Data Source [id number] 04/08/2021 09:00:00 AM EDT [place], [place] [address]PATIENT NAME: OSCAR BERRY#: [id number] PHYSICIAN: NATALIYA VILLARREAL [facility] #: [id number] ADM. DATE:PATIENT : 45 DISCH. DATE: [50}DISCHARGE SUMMARYMedical Discharge PlanNicotine Replacement TherapyPrescribed at discharge Rx [facility] Care InstructionsDischarge Activity: As toleratedDischarge diet: RegularProblem ListMedical ProblemsAllergic rhinitisDyslipidemiaGERD (gastroesophageal reflux disease)HypertensionFollow Up CareFollow Up:Follow up with your Primary care physician and with your orthopedic surgeonPriority ItemsUrgent/Important items that need to be addressed at primary care follow-upappointmentPlease take the aspirin 325 mg PO bid as requested by the orthopedic surgeonDischarge InformationDISCHARGE INFORMATION* [facility] and allowing us toserve you* Our Goal is to provide the highest quality of care.* This discharge information is to help you better understand your diagnosisand medication* Avoid taking rjav-nzq-wzhvomd medicines unless approved by your physician.* Take your medications as prescribed. DO NOT stop any medications unlessapproved first* Weigh yourself daily. Report any gain of 5 lbs in a week* 24 Hour Crisis HOTLINE available: Call [facility] at [phone] SMOKING CESSATION* Smoking is dangerous to your health. It delays the healing process, andworks against your medications. Not smoking will improve your health* Our hospital participates with the Opt-to-Quit program. You will be contactedafter discharge by the [facility] Smoker's Quitline for support with tosha lares. You have the option once contacted to refuse this service.* You can also go online to www.avandeo. Free nicotine replacementsare available Attention* You should [...] rce(s) Supporting Document(s) ID Date Data Source [id number] 04/08/2021 06:51:00 AM EDT [address] [id number] PROGRESS NOTEPATIENT NAME: OSCAR BERRY PHYSICIAN: NATALIYA VILLARREAL MDAUTHOR: Luke Villarreal. DATE: MR#: [id number] NOTE DATE: 04/08/21 RM#: [id number] TIME: 06 [...] plan is for follow-up with me at [facility] in 2 weeks.Assessment/PlanResuscitation status Full codeDATE SIGNED: 04/08/21 Electronically SignedTIME SIGNED: 06 NATALIYA VILLARREAL MD Name Value Range Interpretation Code Description Data Rachel rce(s) Supporting Document(s) ID Date Data Source [id number] 04/08/2021 04:10:00 AM EDT [facility] ([facility] ) Name Value Range Interpretation Code Description Data Rachel rce(s) Supporting Document(s) Urea nitrogen [Mass/volume] in Serum or Plasma 20 mg/dL 7-23 [facility] ([facility] ) Glucose [Mass/volume] in Serum or Plasma 107 mg/dL 70-110 [facility] ([facility]) Patients taking Sulfasalazine may have f alsely depressed Glucose levels. Patients taking Sulfapyridine may have falsely elevated Glucose levels. Patients should be drawn for Glucose before the initial administration of either drug. Creatinine [Mass/volume] in Serum or Plasma 0.992 mg/dL 0.500-1.300 [facility] ([facility]) Glomerular filtration rate/1.73 sq M.pre dicted [Volume Rate/Area] in Serum or Plasma by Creatinine-based formula (MDRD) 58 mL/min [facility] ([facility] ) Chloride [Moles/volume] in Serum or Plasma 106 mmol/L 99-110 [facility] ([facility] ) Sodium [Moles/volume] in Serum or Plasma 139 mmol/L 136-147 [facility] ([facility] ) Potassium [Moles/volume] in Serum or Plasma 4.7 mmol/L 3.5-5.1 [facility] ([facility] ) Bicarbonate [Moles/volume] in Blood 24 mmol/L 20-33 [facility] ([facility] ) CA 9.1 mg/dL 8.3-10.7 [facility] ([facility] ) Anion gap in Serum or Plasma 13.7 10.0-20.0 [facility] ([facility] ) Alkaline phosphatase [Enzymatic activity/volume] in Serum or Plasma 65 U/L 45-117 [facility] ([facility] ) Protein [Mass/volume] in Serum or Plasma 5.8 g/dL 6.0-7.8 [facility] ([facility] ) Globulin [Mass/volume] in Serum by calculation 2.5 g/dL 2.3-3.5 [facility] ([facility] ) Albumin [Mass/volume] in Serum or Plasma 3.3 g/dL 3.5-5.0 [facility] ([facility] ) ESRD Dialysis patient Albumin reference range: 2.9-4.4 g/dL Bilirubin.total [Mass/volume] in Serum or Plasma 0.4 mg/dL 0.1-1.1 [facility] ([facility] ) The [employer] [place] Total Bilirubin is n ot recommended for patients undergoing treatment with eltrombopag (Promacta) due to the potential for falsely elevated results. Albumin/Globulin [Mass Ratio] in Serum or Plasma 1.3 1.0-2.5 [facility] ([facility] ) Aspartate aminotransferase [Enzymatic activity/volume] in Serum or Plasma 16 U/L 6-38 [facility] ([facility] ) Patients taking Sulfasalazine and/or Sul fapyridine may have falsely depressed AST levels. Patients should be drawn for AST before the initial administration of either drug. Alanine aminotransferase [Enzymatic activity/volume] in Seru m or Plasma 20 U/L 6-54 [facility] ([facility] ) Patients taking Sulfasalazine and/or Sul fapyridine may have falsely depressed ALT levels. Patients should be drawn for ALT before the initial administration of either drug. ID Date Data Source [id number] 04/08/2021 04:10:00 AM EDT [facility] ([facility] ) Name Value Range Interpretation Code Description Data Rachel rce(s) Supporting Document(s) Leukocytes [#/volume] in Blood by Automated count 9.90 x10E3/uL 4.0-1 0.5 [facility] ([facility] ) Erythrocytes [#/volume] in Blood by Automated count 3.15 x10E6/uL 4.2 0-5.40 [facility] ([facility]) Hemoglobin [Mass/volume] in Blood 9.8 g/dL 12.0-16.0 [facility] ([facility] ) Hematocrit [Volume Fraction] of Blood by Automated count 29.2 % 3 7.0-47.0 [facility] ([facility] ) MCV 92.7 fL 81.0-99.0 [facility] ([facility] ) MCHC 33.6 g/dL 32.7-35.6 [facility] ([facility] ) MCH 31.1 pg 27.0-31.0 [facility] ([facility] ) Platelets [#/volume] in Blood by Automated count 300 x10E3/uL 150-450 [facility] ([facility] ) RDW 12.9 % 11.5-14.0 [facility] MPV 9.9 fl 6.9-9.5 [facility] ([facility]) Neutrophils 81.2 % 34-64 [facility] ([facility]) Lymphocytes 8.7 % 25-45 [facility] ([facility]) Monocytes 9.4 % 1.7-10.6 [facility] ([facility]) Eosinophils 0 % 0.4-7.0 [facility] ([facility]) Basophils 0.3 % 0.1-2.0 [facility] ([facility]) Abs. Neutro. 8.04 x10E3/uL 1.2-7.6 [facility] ([facility]) Imm. Gran. 0.4 % 0.1-2.0 [facility] ([facility] Abs. [place]. 0.93 x10E3/uL 0.1-1.0 [facility] ([facility]) Abs. Lymph. 0.86 x10E3/uL 1.0-3.5 [facility] ([facility]) Abs. Eosin. 0.00 x10E3/uL 0.1-0.7 [facility] ([facility]) Abs. Baso. 0.03 x10E3/uL 0.0-0.1 [facility] ([facility]) Abs. Imm. Gran. 0.04 x10E3/uL 0.0-0.1 [facility]) Laboratory test finding (navigational concept) 0 % [facility] ([facility]) ID Date Data Source [id number] 04/08/2021 06:39:00 AM EDT [facility] Name Value Range Interpretation Code Description Data Rachel rce(s) Supporting Document(s) GLU 107 mg/dL 70-110 [facility] Patients taking Sulfasalazine may have f alsely depressedGlucose levels. Patients taking Sulfapyridine may havefalsely elevated Glucose levels. Patients should be drawnfor Glucose before the initial administration of eitherdrug. BUN 20 mg/dL 7-23 [facility] CRE 0.992 mg/dL 0.500-1.300 [facility] GFR 58 mL/min [facility] CHLORIDE 106 mmol/L 99-110 [facility] NA 139 mmol/L 136-147 [facility] POTASSIUM 4.7 mmol/L 3.5-5.1 [facility] TCO2 24 mmol/L 20-33 [facility] ANION GAP 13.7 10.0-20.0 [facility] CA 9.1 mg/dL 8.3-10.7 [facility] ALKALINE PHOS 65 U/L 45-117 [facility] TP 5.8 g/dL 6.0-7.8 [facility] ALB 3.3 g/dL 3.5-5.0 [facility] ESRD Dialysis patient Albumin reference range: 2.9-4.4 g/dL GL 2.5 g/dL 2.3-3.5 [facility] A/G 1.3 1.0-2.5 [facility] T. BILIRUBIN 0.4 mg/dL 0.1-1.1 [facility] [employer] [place] Total Bilirubin is n ot recommended forpatients undergoing treatment with eltrombopag (Promacta)due to the potential for falsely elevated results. ALTI 20 U/L 6-54 [facility] Patients taking Sulfasalazine and/or Sul fapyridine may havefalsely depressed ALT levels. Patients should be drawn forALT before the initial administration of either drug. AST 16 U/L 6-38 [facility] Patients taking Sulfasalazine and/or Sul fapyridine may havefalsely depressed AST levels. Patients should be drawn forAST before the initial administration of either drug. ID Date Data Source [id number] 04/08/2021 06:21:00 AM EDT [facility] Name Value Range Interpretation Code Description Data Rachel rce(s) Supporting Document(s) WBC 9.90 x10E3/uL 4.0-10.5 [facility] RBC 3.15 x10E6/uL 4.20-5.40 [facility] Hemoglobin 9.8 g/dL 12.0-16.0 [facility] Hematocrit 29.2 % 37.0-47.0 [facility] MCV 92.7 fL 81.0-99.0 [facility] MCH 31.1 pg 27.0-31.0 [facility] MCHC 33.6 g/dL 32.7-35.6 [facility] RDW 12.9 % 11.5-14.0 [facility] Platelet count 300 x10E3/uL 150-450 [facility] MPV 9.9 fl 6.9-9.5 [facility] Neutrophils 81.2 % 34-64 [facility] Lymphocytes 8.7 % 25-45 [facility] Monocytes 9.4 % 1.7-10.6 [facility] Eosinophils 0 % 0.4-7.0 [facility] Basophils 0.3 % 0.1-2.0 [facility] Imm. Gran. 0.4 % 0.1-2.0 [facility] Abs. Neutro. 8.04 x10E3/uL 1.2-7.6 [facility] Abs. Lymph. 0.86 x10E3/uL 1.0-3.5 [facility] Abs. [place]. 0.93 x10E3/uL 0.1-1.0 [facility] Abs. Eosin. 0.00 x10E3/uL 0.1-0.7 [facility] Abs. Baso. 0.03 x10E3/uL 0.0-0.1 [facility] Abs. Imm. Gran. 0.04 x10E3/uL 0.0-0.1 [facility] ANRBC% 0 % 0 [facility] ID Date Data Source [id number] 04/07/2021 04:09:00 PM EDT [facility] [address]YWAIKEF AND PHYSICALPATIENT NAME: OSCAR BERRY MR#: [id number] PHYSICIAN: NATALIYA VILLARREAL MDAUTHOR: Jaguar Soliz DATE: [...] (Minimal right knee pain).ExamVital SignsVital Signs-24 HRS10/12 10/926290 1400Temp 97.7 97.9Pulse 71 67Resp 16 18B/P 136/80 132/63B/P MeanPulse Ox 94 95O2 DeliveryO2 Flow OdryMpD0Dmwgzknk ExaminationGeneral Appearance no acute distress, afebrile, alertHead [...] normal affectData ReviewLaboratory DataNone on fileImagingEXAM# TYPE/EXAM [id number] DX/KNEE LIMITEDDATE OF EXAMINATION: 04/07/2021 9:24 EDTHISTORY: [...] Full codePlan discussed with patientCase discussed with pillowcase turner, nursing staffCopies ToCopies to Family Provider: PCP on fileCQM VTE HISTORYVTE HISTORYPrior VTE? NoDATE SIGNED: 04/07/21 Electronically SignedTIME SIGNED: 1614 JAGUAR SIMON MAURER Name Value Range Interpretation Code Description Data Rachel rce(s) Supporting Document(s) ID Date Data Source [id number] 04/07/2021 09:47:00 AM EDT [facility] Exam Number: [id number] OF EXAMINATIO N: 04/07/2021 9:24 EDTHISTORY: Knee [...] rce(s) Supporting Document(s) ID Date Data Source [id number] 04/07/2021 09:24:00 AM EDT [address] [id number] OPERATIVE REPORTPATIENT NAME: OSCAR BERRY MR#: [id number] PHYSICIAN: TODD MUNOZURGEON: Jennifer Villarreal DATE: RM#: [id number] DATE: PATIENT : 45Operative ReportOperative ReportDate of Procedure: April 07, 2021OPERATION: Right total knee replacement arthroplasty.PREOPERATIVE DIAGNOSIS: Right knee osteoarthritisPOSTOPERATIVE DIAGNOSIS: Same.Surgeon: Dr. CarterFir Hand Flesher: Boo PateloAnesthesia: Right adductor canal block with [...] resection level at 5 degrees valgus for [facility]. The block was pinned into position [...] axis. The proximal tibial osteotomywas performed. Lamina toe puncher was then placed medially and we performed acompletion lateral meniscectomy and debridement of the posterior lateralosteophytes. Then we placed the lamina toe puncher laterally and performed acompletion medial meniscectomy and [...] of pulsatile lavage irrigant solution while my human resources assistant manager mixedthe cement on the back table. Once [...] operation smoothly efficiently and safely.Copy to Dr. CarterWashington County Tuberculosis Hospitalvivian to Family ProviderDATE SIGNED: 04/07/21 Electronically SignedTIME SIGNED: 925 NATALIYA VILLARREAL MD Name Value Range Interpretation Code Description Data Rachel rce(s) Supporting Document(s) ID Date Data Source [id number] 04/02/2021 10:02:00 AM EDT [facility] ([facility]) Name Value Range Interpretation Code Description Data Rachel rce(s) Supporting Document(s) Laboratory test finding (navigational concept) Laboratory test result [facility]) ID Date Data Source [id number] 04/02/2021 01:00:00 PM EDT [facility] Name Value Range Interpretation Code Description Data Rachel rce(s) Supporting Document(s) BLOOD TYPE A POSITIVE N [facility] ID Date Data Source [id number] 04/02/2021 10:00:00 AM EDT [facility] ([facility]) Name Value Range Interpretation Code Description Data Rachel rce(s) Supporting Document(s) Blood Type Laboratory test result [facility]) Antibody Screen Laboratory test result [facility]) ID Date Data Source [id number] 04/02/2021 12:04:00 PM EDT [facility] Is patient going to surgery? Y: NHave you ever had a blood transfusion? NHave you had a blood transfusion within the last 3 months? NWhen is the date of your surgery? 04/07/21 Name Value Range Interpretation Code Description Data Rachel rce(s) Supporting Document(s) BLOOD TYPE A POSITIVE N [facility] ANTIBODY SCREEN NEGATIVE [facility] ID Date Data Source [id number] 04/02/2021 08:30:00 AM EDT [facility] ([facility]) Name Value Range Interpretation Code Description Data Rachel rce(s) Supporting Document(s) [id number] Rheonix Laboratory test result [facility] ([facility]) The Rheonix COVID-19 MDx Assay [...] Emergency Use Authorization. ID Date Data Source [id number] 04/02/2021 08:30:00 AM EDT [facility] Name Value Range Interpretation Code Description Data Rachel rce(s) Supporting Document(s) LCOVID-19 RHEONIX ASSAY Negative [facility] This lab was ordered by [facility] and reported by [facility]. ID Date Data Source [id number] 04/03/2021 09:08:00 PM EDT [facility] COMMENTS TO LAB: PREOP TESTINGLAB Con't: 45Is patient suspicious of Covid NShould patient be placed on Covid precautions N Name Value Range Interpretation Code Description Data Rachel rce(s) Supporting Document(s) COVID19 [facility]IX Negative NEGATIVE [facility] The [facility] COVID-19 MDx Assay is an end point RT-PCR assayintended for the qualitative detection of nucleic acid ruqhZHCG-MgE-4 virus. Positive results are indicative of thepresence of SARS-CoV-2 RNA; clinical correlation withpatient history and other diagnostic information isnecessary to determine patient infection status. Negativeresults do not preclude SARS-CoV-2 infection and should notbe used as the sole basis for patient management decisions. The Rheonix MDx Assay is only for use under the Food andDrug Administration's Emergency Use Authorization. ID Date Data Source [id number] 03/25/2021 08:52:00 AM EDT [facility] ([facility]) Name Value Range Interpretation Code Description Data Rachel rce(s) Supporting Document(s) Blood Urea Nitrogen 23 mg/dL 7-18 [facility] ([facility]) Glucose, Fasting 83 mg/dL 70-100 [facility] ([facility] ) Glomerular Filtration Rate 51.5 [facility] ([facility] ) <content>Units are mL/min/1.73 m2</content>
<content></content>
<content>Chronic Kidney Disease Staging per NKF:</content>
<content></content>
<content>Stage I & II GFR >=60 Normal to Mildly Decreased</content>
<content>Stage III GFR 30- 59 Moderately Decreased</content>
<content>Stage IV GFR 15-29 Severely Decreased</content>
<content>Stage V GFR <15 Very Little GFR Left</content>
<content>ESRD GFR <15 on ROPE TIER</content>
<content></content> Creatinine For GFR 1.10 mg/dL 0.55-1.30 [facility] ([facility] ) Potassium Serum 4.6 meq/L 3.5-5.1 [facility] ([facility] ) Sodium Level 140 meq/L 136-145 [facility] ([facility]) Carbon Dioxide Level 26 meq/L 21-32 [facility] ([facility]) Chloride Level 110 meq/L 98-107 [facility] ([facility]) Anion Gap 4 meq/L 8-16 [facility] ([facility]) Calcium Level 8.9 mg/dL 8.8-10.2 [facility] ([facility]) Alt/SGPT 20 U/L 12-78 [facility] ([facility]) Ast/Sgot 14 U/L 7-37 [facility] Alkaline Phosphatase 71 U/L 45-117 [facility] ([facility]) Bilirubin,Total 0.4 mg/dL 0.2-1.0 [facility] ([facility]) Albumin 3.7 GM/DL 3.2-5.2 [facility] ([facility]) Total Protein 6.7 GM/DL 6.4-8.2 [facility] ([facility]) Albumin/Globulin Ratio 1.2 1.2-2.2 [facility] ([facility]) ID Date Data Source [id number] 03/25/2021 08:52:00 AM EDT [facility] ([facility]) Name Value Range Interpretation Code Description Data Rachel rce(s) Supporting Document(s) Erythrocyte sedimentation rate by Westergren method 35 mm/hr 0-30 [facility] ([facility]) ID Date Data Source [id number] 03/25/2021 08:52:00 AM EDT [facility] ([facility]) Name Value Range Interpretation Code Description Data Rachel rce(s) Supporting Document(s) White Blood Count 4.9 10 4.0-10.0 [facility] ([facility]) Red Blood Count 3.71 10 4.00-5.40 [facility] ([facility]) Hemoglobin 11.2 g/dL 12.0-15.5 [facility] ([facility]) Hematocrit 36.1 % 36.0-47.0 [facility] ([facility]) Mean Corpuscular Hemoglobin 30.2 pg 27.0-33.0 [facility] ([facility]) Mean Corpuscular Volume 97.3 fl 80.0-96.0 M [facility]ENT ([facility]) Red Cell Distribution Width 13.1 % 11.5-14.5 [facility] ([facility]) Mean Corpuscular HGB Conc 31.0 g/dL 32.0-36.5 [facility] ([facility]) Platelet Count, Automated 347 10 150-450 [facility] ([facility]) Nucleated Red Blood Cell % 0.0 % 0-0 [facility] ([facility]) ID Date Data Source [id number] 03/25/2021 08:52:00 AM EDT [facility] ([facility]) Name Value Range Interpretation Code [...] MYOCARDIAL INFARCTION 2.5-3.5 ID Date Data Source [id number] 09/10/2020 03:09:[place] [address] OPERATIVE SUMMARYNAME: KARIS MOORE DATE OF : 1945TTENDING PHYS: Denis Choudhury MD DATE: 09/03/20 MR#: [id number] OF PROCEDURE: 09/03/20PREOPERATIVE DIAGNOSIS: Ptosis both upper lids.POSTOPERATIVE DIAGNOSIS: 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 ID Date Data Source HEPATITIS C VIRUS AB SCRN MEDICARE 08/05/2020 12:00:00 AM ES T eCW1 ([facility]) Name Value Range Interpretation Code Description Data Rachel rce(s) Supporting Document(s) 0.1 <0.8 HEP C VIRUS AB SCREEN MED ICARE eCW1 ([facility]) ID Date Data Source LIPID PANEL (CARDIAC RISK) 08/05/2020 12:00:00 AM EST eCW1 ( [facility]) Name Value Range Interpretation Code Description Data Rachel rce(s) Supporting Document(s) Triglyceride [Mass/volume] in Serum or Plasma by calculation 138 <150 TRIGLYCERIDES LEVEL eCW1 ([facility]) Cholesterol [Moles/volume] in Serum or Plasma 268 <200 CHOLESTEROL LEVEL eCW1 ([facility]) Cholesterol in HDL [Moles/volume] in Serum or Plasma 80 >40 HDL CHOLESTEROL eCW1 ([facility]) Cholesterol in LDL [Mass/volume] in Serum or Plasma by calculation 160 <100 LDL CHOLESTEROL eC1 ([facility]) 188 NON-HDL-C eCW1 ([facility]) 3.350 <5 CHOLESTEROL RISK RATIO eCW1 ([facility]) ID Date Data Source MAGNESIUM LEVEL 08/05/2020 12:00:00 AM EST eCW1 ([facility]) Name Value Range Interpretation Code Description Data Rachel rce(s) Supporting Document(s) 1.7 1.8-2.4 MAGNESIUM LEVEL eCW1 ([facility]) ID Date Data Source Comprehensive Metabolic Profile (CMP) 08/05/2020 12:00:00 AM EST eCW1 ([facility]) Name Value Range Interpretation Code Description Data Rachel rce(s) Supporting Document(s) 23 7-18 BLOOD UREA NITROGEN eCW1 (Pending sale to [facility]) 78 70-100 GLUCOSE, FASTING eCW1 ([facility]) 53.4 >39 GLOMERULAR FILTRATION RATE eCW 1 ([facility]) 1.07 0.55-1.30 CREATININE FOR GFR eCW1 (Critical access hospital) 4.3 3.5-5.1 POTASSIUM SERUM eCW1 ([facility]) 141 136-145 SODIUM LEVEL eCW1 (Critical access hospital) 103 98-107 CHLORIDE LEVEL eCW1 ([facility]) 30 21-32 CARBON DIOXIDE LEVEL eCW1 ([facility]) 13 7-37 AST/SGOT eCW1 ([facility]) 10.0 8.8-10.2 CALCIUM LEVEL eCW1 ([facility]) 68 45-117 ALKALINE PHOSPHATASE eCW1 ([facility]) 20 12-78 ALT/SGPT eCW1 ([facility]) 0.4 0.2-1.0 BILIRUBIN,TOTAL eCW1 ([facility]) 6.9 6.4-8.2 TOTAL PROTEIN eCW1 ([facility]) 4.0 3.2-5.2 ALBUMIN eCW1 ([facility]) 1.4 1.2-2.2 ALBUMIN/GLOBULIN RATIO eCW1 ([facility]) ID Date Data Source CBC with Differential 08/05/2020 12:00:00 AM EST eCW1 (Critical access hospital) Name Value Range Interpretation Code Description Data Rachel rce(s) Supporting Document(s) 5.1 4.0-10.0 WHITE BLOOD COUNT eCW1 ([facility]) 35.5 36.0-47.0 HEMATOCRIT eCW1 ([facility]) 11.5 12.0-15.5 HEMOGLOBIN eCW1 ([facility]) 3.66 4.00-5.40 RED BLOOD COUNT eCW1 ([facility]) 97.0 80.0-96.0 MEAN CORPUSCULAR VOLUME e CW1 ([facility]) 32.4 32.0-36.5 MEAN CORPUSCULAR HGB CONC eCW1 ([facility]) 31.4 27.0-33.0 MEAN CORPUSCULAR HEMOGLOB IN eCW1 ([facility]) 327 150-450 PLATELET COUNT, AUTOMATED eCW1 ([facility]) 12.7 11.5-14.5 RED CELL DISTRIBUTION WID TH eCW1 ([facility]) 55.1 36.0-66.0 NEUTROPHILS % eCW1 ([facility] [facility] 30.6 24.0-44.0 LYMPH % eCW1 ([facility]) 2.6 0.0-3.0 EOS % eCW1 ([facility]) 10.3 0.0-5.0 MONO % eCW1 ([facility]) 1.2 0.0-1.0 BASO % eCW1 ([facility]) 1.6 1.5-5.0 LYMPH # eCW1 ([facility]) 2.8 1.5-8.5 NEUTROPHILS # eCW1 ([facility]) 0.1 0.0-0.5 EOS # eCW1 ([facility]) 0.5 0.0-0.8 MONO # eCW1 ([facility]) 0.1 0.0-0.2 BASO # eCW1 ([facility]) ID Date Data Source Basic Metabolic Profile (BMP) 04/14/2020 08:32:21 AM EDT eCW 1 ([facility]) Name Value Range Interpretation Code Description Data Rachel rce(s) Supporting Document(s) 1.15 CREATININE FOR GFR eCW1 ([facility]) 76 GLUCOSE, FASTING eCW1 ([facility]) 22 BLOOD UREA NITROGEN eCW1 (Pending sale to [facility]) 4.4 POTASSIUM SERUM eCW1 ([facility]) 49.1 GLOMERULAR FILTRATION RATE eCW 1 ([facility]) 140 SODIUM LEVEL eCW1 ([facility]) 106 CHLORIDE LEVEL eCW1 ([facility]) 28 CARBON DIOXIDE LEVEL eCW1 ([facility]) 9.4 CALCIUM LEVEL eCW1 ([facility]) ID Date Data Source FERRITIN 04/14/2020 08:30:45 AM EDT eCW1 ([facility]) Name Value Range Interpretation Code Description Data Rachel rce(s) Supporting Document(s) 49 FERRITIN eCW1 ([facility]) ID Date Data Source TOTAL IRON BINDING CAPACIT 04/14/2020 08:30:22 AM EDT eCW1 ( [facility]) Name Value Range Interpretation Code Description Data Rachel rce(s) Supporting Document(s) 68 IRON (FE) eCW1 ([facility]) 282 TOTAL IRON BINDING CAPACITY eC W1 ([facility]) 24.1 PERCENT SATURATION eCW1 ([facility]) Procedure Social History No Information Vital Signs ID Date Data Source UNK Name Value Range Interpretation Code Description Data Source(s) Body temperature 97.5 [degF] 97.5 [degF] MEDENT ([facility] ) Body height 63.5 [in_i] 63.5 [in_i] MEDENT ([facility] ) 5'3.50" Systolic blood pressure 120 mm[Hg] 120 mm[Hg] M EDENT ([facility] ) Body weight 153.00 [lb_av] 153.00 [lb_av] MEDEN T ([facility] ) Body mass index (BMI) [Ratio] 26.7 kg/m2 26.7 k g/m2 MEDENT ([facility]) Respiratory rate 16 /min 16 /min MEDENT ( [facility]) Diastolic blood pressure 70 mm[Hg] 70 mm[Hg] MEDENT ([facility]) Heart rate 80 /min 80 /min MEDENT ([facility]) Body temperature 96.6 [degF] 96.6 [degF] MEDENT ([facility]) Body weight 153.0 [lb_av] 153.0 [lb_av] eCW1 ([facility]) Body height 65 [in_i] 65 [in_i] eCW1 ([facility]) Body mass index (BMI) [Ratio] 25.46 kg/m2 25.46 kg/m2 eCW1 ([facility]) Heart rate 87 /min 87 /min eCW1 ([facility]) Respiratory rate 18 /min 18 /min eCW1 ([facility]) Body temperature 97.3 [degF] 97.3 [degF] eCW1 ( [facility]) Systolic blood pressure 116 mm[Hg] 116 mm[Hg] e CW1 ([facility]) Diastolic blood pressure 72 mm[Hg] 72 mm[Hg] eCW1 ([facility]) Body temperature 97.1 [degF] 97.1 [degF] MEDENT ([facility]) Body height 63 [in_i] 63 [in_i] MEDENT ([facility]) 5'3" Body weight 150.12 [lb_av] 150.12 [lb_av] MEDEN T ([facility]) Body mass index (BMI) [Ratio] 26.6 kg/m2 26.6 k g/m2 MEDENT ([facility]) Body weight 152 [lb_av] 152 [lb_av] eCW1 ([facility]) Body weight 68.95 kg 68.95 kg eCW1 ([facility]) Body height 65 [in_i] 65 [in_i] eCW1 ([facility]) Body mass index (BMI) [Ratio] 25.29 kg/m2 25.29 kg/m2 eCW1 ([facility]) Heart rate 74 /min 74 /min eCW1 ([facility]) Respiratory rate 18 /min 18 /min eCW1 ([facility]) Body temperature 97.7 [degF] 97.7 [degF] eCW1 ( [facility]) Systolic blood pressure 132 mm[Hg] 132 mm[Hg] e CW1 ([facility]) Diastolic blood pressure 62 mm[Hg] 62 mm[Hg] eCW1 ([facility]) Body height 65 [in_i] 65 [in_i] eCW1 ([facility]) Body weight 150.0 [lb_av] 150.0 [lb_av] eCW1 ([facility]) Heart rate 97 /min 97 /min eCW1 ([facility]) Respiratory rate 18 /min 18 /min eCW1 ([facility]) Body mass index (BMI) [Ratio] 24.96 kg/m2 24.96 kg/m2 eCW1 ([facility]) Body temperature 97.0 [degF] 97.0 [degF] eCW1 ( [facility]) Systolic blood pressure 122 mm[Hg] 122 mm[Hg] e CW1 ([facility]) Diastolic blood pressure 58 mm[Hg] 58 mm[Hg] eCW1 ([facility]) Body weight 152 [lb_av] 152 [lb_av] eCW1 ([facility]) Body weight 68.95 kg 68.95 kg eCW1 ([facility]) Body height 65 [in_i] 65 [in_i] eCW1 ([facility]) Body mass index (BMI) [Ratio] 25.29 kg/m2 25.29 kg/m2 eCW1 ([facility]) Systolic blood pressure 117 mm[Hg] 117 mm[Hg] e CW1 ([facility]) Diastolic blood pressure 78 mm[Hg] 78 mm[Hg] eCW1 ([facility]) Body weight 150.6 [lb_av] 150.6 [lb_av] eCW1 ([facility]) Body height 65 [in_i] 65 [in_i] eCW1 ([facility]) Body mass index (BMI) [Ratio] 25.06 kg/m2 25.06 kg/m2 eCW1 ([facility]) Heart rate 92 /min 92 /min eCW1 ([facility]) Respiratory rate 18 /min 18 /min eCW1 ([facility]) Body temperature 97.7 [degF] 97.7 [degF] eCW1 ( [facility]) Systolic blood pressure 128 mm[Hg] 128 mm[Hg] e CW1 ([facility]) Diastolic blood pressure 70 mm[Hg] 70 mm[Hg] eCW1 ([facility]) Body height 64 [in_i] 64 [in_i] MEDENT ([facility]) 5'4" Body temperature 97.5 [degF] 97.5 [degF] MEDENT ([facility]) Body weight 150.00 [lb_av] 150.00 [lb_av] MEDEN T ([facility]) Body mass index (BMI) [Ratio] 25.7 kg/m2 25.7 k g/m2 MEDENT ([facility]) ID Date Data Source [id number] 04/12/2021 02:10:00 AM EDT [facility] Name Value Range Interpretation Code Description Data Source(s) WEIGHT 69.54 kilos 69.54 kilos [facility] HEIGHT 162.56 centimeters 162.56 centimeter [facility] ID Date Data Source [id number] 10/08/2020 03:22:06 PM EDT [facility] Name Value Range Interpretation Code Description Data Source(s) WEIGHT RECORDED 154.00 pounds 154.00 pounds [facility] Height 60 Inches 060 Inches [facility] Patient Treatment Plan of Care Planned Activity Planned Date Details Description Data Source (s) 24 HR Bupropion Hydrochloride 150 MG Extended Release Oral Tablet [Wellbutrin] 12/24/2020 12:00:00 AM EDT eCW1 ([facility])
--- NOTE | 2021-05-16 15:53 | REP ---
INDICATION: gen abd pain. COMPARISON: None TECHNIQUE: Axial contrast-enhanced images from the lung bases to the pubic symphysis using oral and 100 cc Isovue 370 intravenous contrast material. Coronal and sagittal reformations obtained. This CT examination was performed using the following dose reduction techniques: Automated exposure control, adjustment of mA and/or kv according to the patient's size, and the use of iterative reconstruction technique. FINDINGS: Lung bases are clear. Liver, spleen, pancreas, gallbladder, bilateral adrenal glands and left kidney are normal. Right kidney includes 7 cm and 8 cm simple appearing cysts. The enteric system including stomach, small, and large bowel appears normal. No evidence for obstruction or acute inflammatory process. Normal terminal ileum and cecum are identified in the right lower quadrant. Colonic and sigmoid diverticula noted without acute diverticulitis. Pelvis demonstrates normal bladder and evidence for prior hysterectomy. No ascites. No free air. No intraperitoneal or retroperitoneal adenopathy. Abdominal aorta and vasculature appear normal. Musculoskeletal structures are intact and without acute osseous abnormality. IMPRESSION: No acute abdominopelvic pathology appreciated. Large simple right renal cysts. Diverticulosis without acute diverticulitis. <Electronically signed by Curry Quezada > 05/16/21 [id number]
[2021-05-16 17:20] VITALS: BP 185/79
[2021-05-16] MEDS ORDERED: HYDR-4571 (17:53)
--- NOTE | 2021-05-16 20:39 | ECGEPIP ---
[facility] - ED Test Date: 2021-05-16 Pat Name: OSCAR DYSON Department: Room: - Gender: Female [employer]: CHUY : 1945 Requested By: HARSHAD Andrea Order Number: [id number] Reading MD: Brittany Ryan Measurements Intervals [place] Rate: 65 P: 55 [place]: 176 QRS: 14 QRSD: 80 T: 33 QT: 410 QTc: 426 Interpretive Statements Normal sinus rhythm NSTTW abnormalities decreased rate 04/01/20 Electronically Signed on 05-16-2021 20:39:05 EST by Brittany Ryan
== END 2021-05-16 17:18 | disposition home or self-care (01) ==
LOC: M ED 12:02
DX: R10.9 Unspecified abdominal pain (principal); K57.30 Diverticulosis of large intestine without perforation or abscess without bleeding; N28.1 Cyst of kidney, acquired; I10 Essential (primary) hypertension; K21.9 Gastro-esophageal reflux disease without esophagitis; E78.5 Hyperlipidemia, unspecified; M85.80 Other specified disorders of bone density and structure, unspecified site; Z88.0 Allergy status to penicillin; Z88.2 Allergy status to sulfonamides; Z87.891 Personal history of nicotine dependence; Z90.722 Acquired absence of ovaries, bilateral; Z90.710 Acquired absence of both cervix and uterus; Z79.82 Long term (current) use of aspirin; Z79.899 Other long term (current) drug therapy
CPT/HCPCS: 74177; 80048; 80076; 81001; 82550; 82553; 83690; 84484; 85025; 93005; 93041; 96374; 99285; C9113; Q9963; Q9967

== ENCOUNTER → 2021-06-18 | Outpatient (CLI) | payer MEDICARE ==
[~2021-06-18] MED LIST changes: +HYDR-4571; +OMEP-173 PO; -OMEP-218 PO
== END ==
LOC: M WHC 14:33
PROVIDERS: ATTEND Internal Medicine
DX: Z12.31 Encounter for screening mammogram for malignant neoplasm of breast (principal)

== ENCOUNTER → 2021-08-11 | Outpatient (CLI) | payer MEDICARE ==
[2021-08-11 15:23] LABS: BASO # 0.1 10^3/uL (0.0-0.2); BASO % 1.1 % (0.0-1.0); EOS # 0.2 10^3/uL (0.0-0.5); EOS % 2.8 % (0.0-3.0); HEMATOCRIT 33.6 % (36.0-47.0); HEMOGLOBIN 10.4 g/dl (12.0-15.5); LYMPH # 1.7 10^3/uL (1.5-5.0); LYMPH % 25.3 % (24.0-44.0); MEAN CORPUSCULAR HEMOGLOBIN 30.6 pg (27.0-33.0); MEAN CORPUSCULAR VOLUME 98.8 fl (80.0-96.0); MONO # 0.8 10^3/uL (0.0-0.8); MONO % 12.4 % (2.0-8.0); NEUTROPHILS # 3.8 10^3/uL (1.5-8.5); NEUTROPHILS % 57.9 % (36.0-66.0); PLATELET COUNT, AUTOMATED 342 10^3/uL (150-450); WHITE BLOOD COUNT 6.5 10^3/uL (4.0-10.0)
[2021-08-11 15:45] LABS: ALBUMIN 3.8 GM/DL (3.2-5.2); ALT/SGPT 19 U/L (12-78); BILIRUBIN,TOTAL 0.5 MG/DL (0.2-1.0); BLOOD UREA NITROGEN 20 MG/DL (7-18); CALCIUM LEVEL 9.3 MG/DL (8.8-10.2); CARBON DIOXIDE LEVEL 27 MEQ/L (21-32); CHLORIDE LEVEL 106 MEQ/L (98-107); CHOLESTEROL LEVEL 190 MG/DL (<200); CHOLESTEROL RISK RATIO 2.533 (<5); CREATININE FOR GFR 1.03 MG/DL (0.55-1.30); GLOMERULAR FILTRATION RATE 55.6 (>39); GLUCOSE, FASTING 74 MG/DL (70-100); HDL CHOLESTEROL 75 MG/DL (>40); LDL CHOLESTEROL 92 MG/DL (<100); NON-HDL-C 115 MG/DL; POTASSIUM SERUM 4.6 MEQ/L (3.5-5.1); SODIUM LEVEL 138 MEQ/L (136-145); TOTAL PROTEIN 6.6 GM/DL (6.4-8.2); TRIGLYCERIDES LEVEL 116 MG/DL (<150)
[2021-08-13 14:48] LABS: FOLATE > 24.0 NG/ML; VITAMIN B12 LEVEL 361 PG/ML
[2021-08-13 15:43] LABS: FERRITIN 64 NG/ML (8-252); IRON (FE) 58 UG/DL (50-170); PERCENT SATURATION 20.6 % (13.2-45.0); TOTAL IRON BINDING CAPACITY 281 UG/DL (250-450)
== END ==
LOC: M PLALAB 11:25
PROVIDERS: ATTEND Internal Medicine
DX: E78.00 Pure hypercholesterolemia, unspecified (principal); I10 Essential (primary) hypertension; K21.9 Gastro-esophageal reflux disease without esophagitis

== ENCOUNTER → 2021-08-11 | Outpatient (REF) | payer MEDICARE | LOC: M SFHCPLAZ 10:38 | PROVIDERS: ATTEND Internal Medicine | DX: E78.00 Pure hypercholesterolemia, unspecified (principal); I10 Essential (primary) hypertension; K21.9 Gastro-esophageal reflux disease without esophagitis ==

== ENCOUNTER → 2021-09-07 | Outpatient (CLI) | payer MEDICARE ==
[2021-09-07 13:20] LABS: BASO # 0.1 10^3/uL (0.0-0.2); BASO % 1.4 % (0.0-1.0); EOS # 0.2 10^3/uL (0.0-0.5); EOS % 3.8 % (0.0-3.0); HEMATOCRIT 33.8 % (36.0-47.0); HEMOGLOBIN 10.7 g/dl (12.0-15.5); LYMPH # 1.4 10^3/uL (1.5-5.0); LYMPH % 27.4 % (24.0-44.0); MEAN CORPUSCULAR HEMOGLOBIN 30.5 pg (27.0-33.0); MEAN CORPUSCULAR HGB CONC 31.7 g/dl (32.0-36.5); MEAN CORPUSCULAR VOLUME 96.3 fl (80.0-96.0); MONO # 0.4 10^3/uL (0.0-0.8); MONO % 8.2 % (2.0-8.0); NEUTROPHILS # 2.9 10^3/uL (1.5-8.5); PLATELET COUNT, AUTOMATED 361 10^3/uL (150-450); RED BLOOD COUNT 3.51 10^6/uL (4.00-5.40)
== END ==
LOC: M PLALAB 09:49
PROVIDERS: ATTEND Internal Medicine
DX: D64.9 Anemia, unspecified (principal)

== ENCOUNTER → 2021-11-03 | Outpatient (REF) | payer MEDICARE ==
[2021-11-03 17:33] LABS: PERCENT SATURATION 21.2 % (13.2-45.0)
== END ==
LOC: M LAB REF 16:07
PROVIDERS: ATTEND Internal Medicine
DX: D64.9 Anemia, unspecified (principal)

== ENCOUNTER → 2022-03-03 | Outpatient (REF) | payer MEDICARE | LOC: M LAB REF 12:14 | PROVIDERS: ATTEND Internal Medicine | DX: N39.0 Urinary tract infection, site not specified (principal); N32.9 Bladder disorder, unspecified ==

== ENCOUNTER → 2022-05-10 | Outpatient (REF) | payer MEDICARE ==
[2022-05-10 18:25] LABS: URIC ACID 5.7 MG/DL (2.6-6.0)
[2022-05-10 19:27] LABS: PTH INTACT 109.8 PG/ML (18.5-88.0)
== END ==
LOC: M LAB REF 16:11
PROVIDERS: ATTEND Internal Medicine
DX: N18.31 Chronic kidney disease, stage 3a (principal)

== ENCOUNTER → 2022-05-26 | Outpatient (CLI) | payer MEDICARE | LOC: M PLAIMG 11:09 | PROVIDERS: ATTEND Physician Assistant | DX: M17.12 Unilateral primary osteoarthritis, left knee (principal); S83.92XA Sprain of unspecified site of left knee, initial encounter; M25.462 Effusion, left knee ==

== ENCOUNTER → 2022-06-25 | Outpatient (CLI) | payer MEDICARE | LOC: M WHC 09:54 | PROVIDERS: ATTEND Internal Medicine | DX: Z12.31 Encounter for screening mammogram for malignant neoplasm of breast (principal) ==

== ENCOUNTER → 2022-08-10 | Outpatient (REF) | payer MEDICARE | LOC: M LAB REF 16:13 | PROVIDERS: ATTEND Internal Medicine | DX: M15.9 Polyosteoarthritis, unspecified (principal); Z79.899 Other long term (current) drug therapy ==

== ENCOUNTER → 2023-07-20 | Outpatient (REF) | payer MEDICARE ==
[2023-07-20 19:24] LABS: PERCENT SATURATION 31.7 % (13.2-45.0)
[2023-07-20 19:28] LABS: FERRITIN 88.1 NG/ML (7.3-270.7)
== END ==
LOC: M LAB REF 16:31
PROVIDERS: ATTEND Internal Medicine
DX: D64.9 Anemia, unspecified (principal)

== ENCOUNTER 2023-09-06 09:14 | Day surgery (SDC) | payer MEDICARE ==
[2023-08-09] MEDS: PROPARACAINE 0.5% OPHTH SOL 15ML OS ONE (10:15)
[~2023-09-06] VITALS: Ht 160 cm; Wt 67.3 kg
[~2023-09-06 09:14] MED LIST changes: +ACET650T15 PO; +ATOR40TA75 PO; +BAYE81TA10 PO; +CYCLOPENTOLATE 1% OPHTH SOLN 2ML BTL OS SCH; +D 1010002 PO; +FAMO20TA5 PO; +FOLI400T5 PO; +OFLOXACIN 0.3 % (OCUFLOX) OPTH SOL 5ML OS SCH; +PHENYLEPHRINE 2.5% OPHTH SOL 2ML OS SCH; +PROPARACAINE 0.5% OPHTH SOL 15ML OS ONE; +TROPICAMIDE 1% OPHTH SOLN 15ML OS SCH
[2023-09-06] MEDS ORDERED: fentaNYL 100 MCG/2 ML INJECTION As Ordered ONE (11:05)
[2023-09-06] MEDS ORDERED: MIDAZOLAM INJ 2MG/2ML VIAL As Ordered ONE (11:05)
[2023-09-06] MEDS: TROPICAMIDE 1% OPHTH SOLN 15ML OS SCH (11:12)
[2023-09-06] MEDS: PHENYLEPHRINE 2.5% OPHTH SOL 2ML OS SCH (11:12)
[2023-09-06] MEDS: ATROPINE SULFATE 1% OPHTH SOLN 2ML BTL OS SCH (11:12)
[2023-09-06] MEDS: OFLOXACIN 0.3 % (OCUFLOX) OPTH SOL 5ML OS SCH (11:12)
[2023-09-06] MEDS: LIDOCAINE 1% SDV 5ML VIAL As Ordered ONE (11:14)
[2023-09-06] MEDS: BSS IRR 500ML/OMIDRIA 4ML IRR BAG (OR ONLY) As Ordered ONE (11:14)
[2023-09-06] MEDS: MOXIFLOXACIN 0.6MG/0.4ML INTRAOCULAR SYRINGE As Ordered ONE (11:14)
[2023-09-06 11:15] VITALS: BP 147/67; TEMP 97.6; O2SAT 95
== END 2023-09-06 11:42 | disposition home or self-care (01) ==
LOC: M SDC 09:14
PROVIDERS: ATTEND Ophthalmology
DX: H25.12 Age-related nuclear cataract, left eye (principal); I10 Essential (primary) hypertension; E78.00 Pure hypercholesterolemia, unspecified; Z79.899 Other long term (current) drug therapy; Z79.82 Long term (current) use of aspirin; Z90.710 Acquired absence of both cervix and uterus; Z87.19 Personal history of other diseases of the digestive system; Z90.49 Acquired absence of other specified parts of digestive tract; Z87.891 Personal history of nicotine dependence; Z88.0 Allergy status to penicillin; Z88.2 Allergy status to sulfonamides
CPT/HCPCS: 66984; J1097; J2250; J3010; V2632

== ENCOUNTER → 2023-09-23 | Outpatient (CLI) | payer MEDICARE ==
[~2023-09-23] MED LIST changes: -CYCLOPENTOLATE 1% OPHTH SOLN 2ML BTL OS SCH; -OFLOXACIN 0.3 % (OCUFLOX) OPTH SOL 5ML OS SCH; -PHENYLEPHRINE 2.5% OPHTH SOL 2ML OS SCH; -PROPARACAINE 0.5% OPHTH SOL 15ML OS ONE; -TROPICAMIDE 1% OPHTH SOLN 15ML OS SCH
== END ==
LOC: M WHC 13:28
PROVIDERS: ATTEND Internal Medicine
DX: Z12.31 Encounter for screening mammogram for malignant neoplasm of breast (principal)

== ENCOUNTER → 2023-10-04 | Outpatient (REF) | payer MEDICARE | LOC: M LAB REF 16:29 | PROVIDERS: ATTEND Internal Medicine | DX: N39.0 Urinary tract infection, site not specified (principal) ==

== ENCOUNTER → 2023-11-30 | Outpatient (CLI) | payer MEDICARE ==
[2023-11-30 18:07] LABS: BASO # 0.1 10^3/uL (0.0-0.2); BASO % 0.8 % (0.0-1.0); EOS # 0.2 10^3/uL (0.0-0.5); EOS % 2.8 % (0.0-3.0); HEMOGLOBIN 10.2 g/dl (12.0-15.5); LYMPH # 1.5 10^3/uL (1.5-5.0); LYMPH % 25.1 % (24.0-44.0); MEAN CORPUSCULAR HEMOGLOBIN 32.7 pg (27.0-33.0); MEAN CORPUSCULAR HGB CONC 32.9 g/dl (32.0-36.5); MEAN CORPUSCULAR VOLUME 99.4 fl (80.0-96.0); MONO # 0.5 10^3/uL (0.0-0.8); MONO % 8.7 % (2.0-8.0); NEUTROPHILS # 3.7 10^3/uL (1.5-8.5); NEUTROPHILS % 62.4 % (36.0-66.0); PLATELET COUNT, AUTOMATED 324 10^3/uL (150-450); RED BLOOD COUNT 3.12 10^6/uL (4.00-5.40)
== END ==
LOC: M WUC 14:44
PROVIDERS: ATTEND Nurse Practitioner Family
DX: M79.674 Pain in right toe(s) (principal); M19.071 Primary osteoarthritis, right ankle and foot

== ENCOUNTER → 2024-01-03 | Outpatient (CLI) | payer MEDICARE | LOC: M PLAIMG 10:27 | PROVIDERS: ATTEND Nurse Practitioner Adult Health | DX: R05.9 Cough, unspecified (principal) ==

== ENCOUNTER 2024-01-26 06:20 | Day surgery (SDC) | payer MEDICARE ==
[~2024-01-26] VITALS: Ht 160 cm; Wt 65.6 kg
[2024-01-26] MEDS: OFLOXACIN 0.3 % (OCUFLOX) OPTH SOL 5ML OD ONE ×2 (06:00→07:20)
[2024-01-26] MEDS: LIDOCAINE 3.5 % 1ML OPHTH TOPICAL GEL OU ONE ×2 (06:00→07:19)
[~2024-01-26 06:20] MED LIST changes: +ATROPINE SULFATE 1% OPHTH SOLN 2ML BTL OD SCH; +PHENYLEPHRINE 10% OPHTH SOL 5ML OD PRN; +PHENYLEPHRINE 2.5% OPHTH SOL 2ML OD SCH; +TROPICAMIDE 1% OPHTH SOLN 15ML OD SCH
[2024-01-26] MEDS: CEFUROXIME 1MG/0.1ML INTRACAMERAL INJ As Ordered ONE (06:45)
[2024-01-26] MEDS: BSS IRRIG/VANCO(10MG)/TOBRA(5MG)/EPINEPH(1:1000-0.5CC)500ML BAG-ORONLY As Ordered ONE (06:59)
[2024-01-26] MEDS: PHENYLEPHRINE 2.5% OPHTH SOL 2ML OD SCH (07:19)
[2024-01-26] MEDS: TROPICAMIDE 1% OPHTH SOLN 15ML OD SCH (07:19)
[2024-01-26] MEDS: ATROPINE SULFATE 1% OPHTH SOLN 2ML BTL OD SCH (07:21)
[2024-01-26] MEDS ORDERED: MIDAZOLAM INJ 2MG/2ML VIAL As Ordered ONE (07:52)
[2024-01-26] MEDS ORDERED: fentaNYL 100 MCG/2 ML INJECTION As Ordered ONE (07:52)
[2024-01-26] MEDS: LIDOCAINE 1% SDV 5ML VIAL As Ordered ONE (08:07)
[2024-01-26] MEDS: MOXIFLOXACIN 0.6MG/0.4ML INTRAOCULAR SYRINGE As Ordered ONE (08:13)
[2024-01-26 08:18] VITALS: BP 137/79; TEMP 97; O2SAT 97
== END 2024-01-26 08:35 | disposition home or self-care (01) ==
LOC: M SDC 06:20
PROVIDERS: ATTEND Ophthalmology
DX: H25.11 Age-related nuclear cataract, right eye (principal); I10 Essential (primary) hypertension; E78.5 Hyperlipidemia, unspecified; K57.92 Diverticulitis of intestine, part unspecified, without perforation or abscess without bleeding; K21.9 Gastro-esophageal reflux disease without esophagitis; Z88.0 Allergy status to penicillin; Z88.2 Allergy status to sulfonamides; Z87.891 Personal history of nicotine dependence; Z79.899 Other long term (current) drug therapy; F41.9 Anxiety disorder, unspecified
CPT/HCPCS: 66984; J0697; J2250; J3010; V2632

== ENCOUNTER → 2024-01-31 | Outpatient (CLI) | payer MEDICARE ==
[~2024-01-31] MED LIST changes: -ATROPINE SULFATE 1% OPHTH SOLN 2ML BTL OD SCH; -PHENYLEPHRINE 10% OPHTH SOL 5ML OD PRN; -PHENYLEPHRINE 2.5% OPHTH SOL 2ML OD SCH; -TROPICAMIDE 1% OPHTH SOLN 15ML OD SCH
== END ==
LOC: M WHC 13:23
PROVIDERS: ATTEND Internal Medicine
DX: Z13.820 Encounter for screening for osteoporosis (principal); M81.0 Age-related osteoporosis without current pathological fracture

== ENCOUNTER → 2024-04-02 | Outpatient (REF) | payer MEDICARE | LOC: M LAB REF 13:36 | PROVIDERS: ATTEND Internal Medicine | DX: N39.0 Urinary tract infection, site not specified (principal) ==

== ENCOUNTER → 2024-07-02 | Outpatient (REF) | payer MEDICARE ==
[2024-07-02 18:42] LABS: PTH INTACT 142.1 PG/ML (18.5-88.0)
[2024-07-02 18:43] LABS: PERCENT SATURATION 20.1 % (13.2-45.0)
[2024-07-02 18:47] LABS: FERRITIN 69.3 NG/ML (7.3-270.7)
== END ==
LOC: M LAB REF 16:23
PROVIDERS: ATTEND Internal Medicine
DX: N39.0 Urinary tract infection, site not specified (principal); N18.31 Chronic kidney disease, stage 3a; D64.9 Anemia, unspecified

== ENCOUNTER → 2024-10-30 | Outpatient (CLI) | payer MEDICARE | LOC: M WHC 13:04 | PROVIDERS: ATTEND Internal Medicine | DX: Z12.31 Encounter for screening mammogram for malignant neoplasm of breast (principal) ==

== ENCOUNTER → 2024-11-05 | Outpatient (CLI) | payer MEDICARE ==
[2024-11-05 08:37] LABS: HEMATOCRIT 33.5 % (36.0-47.0); HEMOGLOBIN 10.8 g/dl (12.0-15.5); MEAN CORPUSCULAR HGB CONC 32.2 g/dl (32.0-36.5); MEAN CORPUSCULAR VOLUME 96.3 fl (80.0-96.0); PLATELET COUNT, AUTOMATED 370 10^3/uL (150-450); RED BLOOD COUNT 3.48 10^6/uL (4.00-5.40); WHITE BLOOD COUNT 5.3 10^3/uL (4.0-10.0)
[2024-11-05 08:49] LABS: ERYTHROCYTE SEDIMENTATION RATE 40 mm/hr (0-30); INR 0.87; PROTHROMBIN TIME 12.2 SECONDS (12.5-14.5)
[2024-11-05 09:01] LABS: ALBUMIN 3.9 G/DL (3.2-5.2); BILIRUBIN,TOTAL 0.4 MG/DL (0.3-1.2); CALCIUM LEVEL 9.9 MG/DL (8.3-10.6); CREATININE FOR GFR 1.04 MG/DL (0.55-1.30); TOTAL PROTEIN 6.9 G/DL (5.7-8.2)
== END ==
LOC: M RAD 07:44
PROVIDERS: ATTEND Orthopaedic Surgery
DX: Z01.818 Encounter for other preprocedural examination (principal); M17.12 Unilateral primary osteoarthritis, left knee; I70.0 Atherosclerosis of aorta

== ENCOUNTER → 2025-01-02 | Outpatient (REF) | payer MEDICARE ==
[2025-01-02 13:00] LABS: IRON (FE) 86.0 UG/DL (50-170); PERCENT SATURATION 28.2 % (13.2-45.0)
== END ==
LOC: M LAB REF 12:16
PROVIDERS: ATTEND Internal Medicine
DX: D64.9 Anemia, unspecified (principal)

== ENCOUNTER → 2025-05-17 | Outpatient (CLI) | payer MEDICARE ==
[~2025-05-17] MED LIST changes: +ACET-1515 PO; -ACET650T15 PO
== END ==
LOC: M PLAIMG 13:06
PROVIDERS: ATTEND Internal Medicine
DX: R01.1 Cardiac murmur, unspecified (principal)